=== PATIENT | female | born 1945 | race Caucasian/White ===

== ENCOUNTER 2023-01-11 00:57 | Day surgery (SDC) | payer MEDICARE, SELFPAY ==
[2022-12-29 14:17] VITALS: BMI 29.2
[2023-01-11] VITALS (12 sets, daily range): BP systolic 108–144; BP diastolic 57–86; PULSE 60–85; RESP 11–21; TEMP 35.9; O2SAT 97–100; BMI 30.3
[2023-01-11] MEDS: LACTATED RINGERS 1,000 ML 150 ML IV CONT (08:02)
--- NOTE | 2023-01-11 08:08 | WPDANESEPPF ---
Anes - Initial Pre Proc Eval Procedure: Operation Date: 01/11/23 09:00 Proposed Procedures p Colonoscopy - Leonides Brooks MD Date/Time: 01/11/23 08:08 Surgeon: Leonides Brooks MD Pre Op Diagnosis: hx colon polyps, family hx colon ca Patient Data Age: 77 Gender: F Height: 1.6 m Weight: 77.6 kg Last Vital Signs Temp 96.7 F L 01/11/23 07:44 Pulse 85 01/11/23 07:44 Resp 18 01/11/23 07:44 BP 130/86 01/11/23 07:44 Pulse Ox 100 01/11/23 07:44 O2 Del Method Room Air 01/11/23 07:44 Allergies Allergy/AdvReac Type Severity Reaction Status Date / Time Sulfa (Sulfonamide Allergy Unknown Unknown Verified 01/11/23 07:51 Antibiotics) adhesive tape Allergy Rash Verified 01/11/23 07:51 albuterol AdvReac Mild Cough Verified 01/11/23 07:51 Home Medications Medication Instructions Recorded Confirmed Type levothyroxine 112 mcg capsule 112 mcg PO DAILY 01/18/20 01/11/23 History methadone 5 mg tablet 5 mg PO BID 10/01/21 01/11/23 History escitalopram oxalate 20 mg tablet See Rx Instructions .Route 11/02/22 01/11/23 Rx .COMPLEX #90 tabs quetiapine 50 mg tablet (Seroquel) 50 mg PO DAILY #90 tabs 11/02/22 01/11/23 Rx tizanidine 4 mg capsule 4 mg PO ONCE PRN muscle spasms 11/02/22 01/11/23 History Patient hx anesthesia problems: none Family hx anesthesia problems: none Results Review: All pre-operative results and documents have been reviewed as part of the pre-operative evaluation. [facility] Past Medical History Medical History Family history of colon cancer in father Narcotic bowel syndrome Overflow diarrhea Therapeutic opioid-induced constipation (OIC) Surgical History Surgical History History of cataract surgery Family History Family History Father Family history of cardiovascular disease Cerebrovascular accident Family history of malignant neoplasm Grandparent Family history of cardiovascular disease Family history of malignant neoplasm Mother Family history of malignant neoplasm Social History Social History Smoking status: Never smoker Alcohol intake: never Substance use: never Substance use type: does not use Living arrangements: with family Occupation/Education: occupation 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 Gender identity (if verbalized by the patient): Female Spiritual care concerns: No Agree to blood products: Yes Anes - Eval Final PreProcedure Day of Procedure 01/11/23 08:08 Patient weight: obese Heart: regular rate and rhythm Lungs: clear to auscultation Airway: Mallampati scale class III Neurological: alert and oriented Last oral intake: >/= 8 hours ASA classification: III Emergent: no Anesthetic plan: proceed Anesthesia type and monitoring: general GIVS and standard monitoring Results Review: All pre-operative results and documents have been reviewed as part of the pre-operative evaluation. Informed Consent: The patient's anesthetic plan and its attendant risks and benefits were discussed with the patient/family/POA. Questions were solicited and answers provided to the satisfaction of the patient/family/POA.
--- NOTE | 2023-01-11 08:20 | PM.HPGS ---
History of Present Illness History of Present Illness Consent: Risks, benefits, and alternatives have been discussed and questions answered. Patient agrees to proceed with procedure. 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 Review of Systems Constitutional: Constitutional: Denies headache(s) and Denies weakness Eyes: Eyes: Denies blurry vision ENT: Reports Normal hearing present, Denies headache(s) and Denies neck pain Cardiovascular: Cardiovascular: Denies chest pain and Denies dyspnea Respiratory: Respiratory: Denies dyspnea Gastrointestinal: Gastrointestinal: Reports no additional gastrointestinal complaints Genitourinary: Genitourinary: Denies dysuria Musculoskeletal: Musculoskeletal: Denies neck pain Integumentary/Breasts: Skin/Breast: Denies dry skin Neurologic: Reports Normal hearing present, Denies headache(s) and Denies weakness Psychiatric: Psychiatric: Denies anxiety Endocrine: Endocrine: Denies change in body appearance Hematologic/Lymphatic: Hematologic/Lymphatic: Denies easy bleeding Allergic/Immunologic: Allergic/Immunologic: Denies urticaria PMFSH Past Medical History Medical History Family history of colon cancer in father Narcotic bowel syndrome Overflow diarrhea Therapeutic opioid-induced constipation (OIC) Surgical History Surgical History History of cataract surgery Family History Family History Father Family history of cardiovascular disease Cerebrovascular accident Family history of malignant neoplasm Grandparent Family history of cardiovascular disease Family history of malignant neoplasm Mother Family history of malignant neoplasm Social History Social History Smoking status: Never smoker Alcohol intake: never Substance use: never Substance use type: does not use Living arrangements: with family Occupation/Education: occupation 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 Gender identity (if verbalized by the patient): Female Spiritual care concerns: No Agree to blood products: Yes Meds Home Medications and Allergies Home Medications Medication Instructions Recorded Confirmed Type levothyroxine 112 mcg capsule 112 mcg PO DAILY 01/18/20 01/11/23 History methadone 5 mg tablet 5 mg PO BID 10/01/21 01/11/23 History escitalopram oxalate 20 mg tablet See Rx Instructions .Route 11/02/22 01/11/23 Rx .COMPLEX #90 tabs quetiapine 50 mg tablet (Seroquel) 50 mg PO DAILY #90 tabs 11/02/22 01/11/23 Rx tizanidine 4 mg capsule 4 mg PO ONCE PRN muscle spasms 11/02/22 01/11/23 History Allergies Allergy/AdvReac Type Severity Reaction Status Date / Time Sulfa (Sulfonamide Allergy Unknown Unknown Verified 01/11/23 07:51 Antibiotics) adhesive tape Allergy Rash Verified 01/11/23 07:51 albuterol AdvReac Mild Cough Verified 01/11/23 07:51 Vital Signs Vital Signs - 24 hr 01/11/23 07:44 Temperature 96.7 F L Pulse Rate 85 Respiratory Rate 18 Blood Pressure 130/86 Pulse Oximetry 100 Oxygen Delivery Room Air Assessment and Plan Assessment and plan (1) Family history of colon cancer in father: Code(s): Z80.0 - Family history of malignant neoplasm of digestive organs Status: Acute Assessment and Plan: colonoscopy
--- NOTE | 2023-01-11 09:43 | SUR.PHASEII ---
Pt arousable on calling but will quickly fall back asleep. Multiple attempts to wake pt for discharge. Spouse states she did not sleep last night. Continue to monitor. Anesthesiologist Dr. Hunter aware and at bedside.
--- NOTE | 2023-01-11 10:03 | SUR.PHASEII ---
Pt arousable on calling. States she did not take any medications this morning. Last dose of methadone last night. Pt still too drowsy for discharge at this time.
== END 2023-01-11 10:25 | disposition home or self-care (01) ==
PROVIDERS: PCP Family Medicine; Visit Provider Internal Medicine Gastroenterology
PROC: 0DJD8ZZ Inspection of Lower Intestinal Tract, Via Natural or Artificial Opening Endoscopic (ICD-10-PCS; CPT 45378; principal; 2023-01-11 09:00)
DX: Z12.11 Encounter for screening for malignant neoplasm of colon (principal); Z80.0 Family history of malignant neoplasm of digestive organs; Z86.010 Personal history of colon polyps; K57.30 Diverticulosis of large intestine without perforation or abscess without bleeding
CPT/HCPCS: G0105; J2704; J7120

== ENCOUNTER 2023-08-15 08:14 | Outpatient (CLI) | payer MEDICARE, SELFPAY ==
--- NOTE | ~2023-08-15 | MMUS_ITS ---
MM post biopsy invasive LT, US breast biopsy LT w image EXAMINATION: US GUIDED NEEDLE BIOPSY WITH VACUUM ASSISTANCE DATE: 08/15/2023 15:07 CDT INDICATION: Left breast mass seen on prior examination. Ultrasound-guided core biopsy is requested t o evaluate for malignancy. TECHNIQUE AND FINDINGS: The risks and potential benefits of the procedure were discussed with the patient, and written inform ed consent was obtained. After sterile preparation of the left breast, 1% lidocaine was utilized for local anesthesia. 1% lidocaine with epinephrine was used for deep anesthesia. A 10G vacuum-assisted biopsy gun needle was advanced through to the outer edge of the region of inter est from a superior approach utilizing sonographic guidance. A total of 4 tissue core samples were o btained through the lesion. An Inrad tissue marker clip was then placed at the biopsy site. Hemostas is was achieved. The patient tolerated procedure well and there was no evidence of immediate complication. The patien t was given verbal instructions partly is from the department. Left breast mammograms to document ti ssue marker clip placement. The tissue samples were submitted to surgical pathology for histologic an alysis. IMPRESSION: 1. Successful ultrasound-guided vacuum-assisted biopsy of left breast mass with tissue marker placem ent. Please refer to pathology report for histologic analysis. Reviewed, dictated and finalized at location A. IMPRESSION: 1. Successful ultrasound-guided vacuum-assisted biopsy of left breast mass wit h tissue marker placement. Please refer to pathology report for histologic anal ysis.
== END 2023-08-15 08:15 | disposition home or self-care (01) ==
PROVIDERS: PCP Family Medicine; Visit Provider Surgery
DX: R92.8 Other abnormal and inconclusive findings on diagnostic imaging of breast (principal); N63.20 Unspecified lump in the left breast, unspecified quadrant
CPT/HCPCS: 19083; 88305; A4648

== ENCOUNTER 2024-04-09 08:09 | Outpatient (CLI) | payer MEDICARE, SELFPAY ==
--- NOTE | 2024-05-02 12:46 | P.SLEEP_ITS ---
Sleep Study Date of Study: 04/09/24 Ordering Provider: Luan Faustin APRN Interpreting Physician: Shanda Santacruz DO Sleep Study Type: CPAP Titration Height: 1.6 m Weight: 77.111 kg Body Mass Index: 30.1 Neck Circumference (inches): 15 [place]: 4 Reason for Sleep Study Elevated residual AHI on compliance data. SNAP HST 01/19/24 ? severe sleep apnea, AHI 52.1, total of 191 apneas (58 central/mixed, 142 obstructive) and 9 hypopneas. Lowest O2 saturation 83% with 59min spent below 88% saturation. On AutoPAP 5-20 cm H2O Sleep History The patient is 78-year-old female with previously diagnosed severe sleep apnea that had a sleep study ordered by the pulmonary group due to an elevated residual AHI on compliance data. The patient occasionally awakens from sleep short of breath. She denies awakening at night with heartburn, belching or cough. She frequently snores and it is frequently loud enough others complain. She frequently has trouble sleeping when she has a cold. She denies waking up gasping for air throughout the night. She frequently has breathing problems at night observed by herself or others. She frequently sweats excessively at night. She frequently has heart palpitations or irregular heartbeats during the night. She frequently falls asleep during the day but never while driving. She denies sleep paralysis and cataplexy. She denies having trouble at school or work due to sleepiness. She rarely experiences vivid dreamlike scenes upon awakening or falling asleep. She denies feeling afraid of going to sleep. She frequently has nightmares. She rarely remembers her dreams. She frequently has thoughts racing through her mind. She rarely feels sad or depressed. She occasionally has anxiety. She rarely has muscular tension. She denies noticing parts of her body jerk. She denies kicking during the night. She denies having crawling and aching feelings in her legs and denies having leg pain during the night. She denies grinding her teeth during sleep and denies awakening with morning jaw pain. She is constantly bothered by pain during the day and frequently awakened by pain during the night. She occasionally wakes up feeling stiff morning. She occasionally wakes up with sore or achy muscles. She constantly wakes up with pain in the neck. She does bed between 10 30-11 p.m. on both weekdays and weekends. It takes her 1 hour to fall asleep. She wakes up once throughout the night to urinate and is able to fall back asleep within 5-10 minutes. She wakes up at 8:00 a.m. on both weekdays and weekends. She typically gets 9 hours of sleep per night. She will stay in bed for 30 minutes after waking up in the morning. She currently lives with . She denies consuming any caffeinated beverages within 2 hours of bedtime. She denies engaging in physical exercise before bedtime. She will watch television before falling asleep. She denies taking naps in the afternoon or the evening. She consumes 2 cups of coffee per day. She denies tobacco, alcohol and recreational drug use. FOR[facility]LY [facility], [facility] Past Medical History Medical History Injury of right elbow Narcotic bowel syndrome Overflow diarrhea Therapeutic opioid-induced constipation (OIC) Surgical History Surgical History History of cataract surgery Family History Family History Father Family history of cardiovascular disease Cerebrovascular accident Family history of malignant neoplasm Grandparent Family history of cardiovascular disease Family history of malignant neoplasm Mother Family history of malignant neoplasm Son Diabetes mellitus Social History Social History Social History: 02/03/24 very confident with medical forms 03/16/24 declined [facility] Smoking status: Never smoker Alcohol intake: never Substance use: never Substance use type: does not use Do You Feel Safe in your Home?: Yes Lack of Transportation: No Lack of Food: Never True Current Housing: I Have Housing Concerned About Future Housing: No Difficulty Paying Gas/Electric Bills: No Difficulty Paying for Meds: No Currently Unemployed: No Education: High School Diploma/GED Difficulty w/ Childcare or Family Care: No Living arrangements: with family Occupation/Education: occupation 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 [employer] Gender identity (if verbalized by the patient): Female Spiritual care concerns: No Agree to blood products: Yes Medications Home Medications ?Medication ?Instructions ?Recorded ?Confirmed ?Type methadone 5 mg tablet 5 mg PO BID 10/01/21 04/23/24 History Calcium with Vitamin D BYMOUTH 03/30/23 04/23/24 History escitalopram oxalate 20 mg tablet 20 mg PO DAILY #90 tabs 03/22/24 04/23/24 Rx quetiapine 50 mg tablet 50 mg PO DAILY #90 tabs 03/22/24 04/23/24 Rx levothyroxine 112 mcg tablet 112 mcg PO DAILY #90 tabs 03/27/24 04/23/24 Rx metoprolol succinate 25 mg 25 mg PO DAILY #30 tabs 03/30/24 04/23/24 Rx tablet,extended release 24 hr eszopiclone 1 mg tablet 1 mg PO ONCE #1 tablet 04/05/24 04/23/24 Rx montelukast 10 mg tablet 10 mg PO QHS PRN 04/05/24 04/23/24 History Sleep Procedure A full night PAP titration using the [employer] multi-channel system recorded the standard physiologic parameters including EEG, EOG, submentalis EMG, anterior tibialis EMG, EKG, body position, nasal and oral airflow using nasal pressure sensor and thermistor.? Respiratory parameters of chest and abdominal movements were recorded with Respiratory Inductance Plethysmography belts. Oxygen saturation was recorded by pulse oximetry. Video monitoring was also performed. Sleep stages, periodic limb movements, and EEG arousals were scored in 30 second epochs according to the criteria of the AASM Scoring Manual. The Apnea-Hypopnea Index was calculated using CMS guidelines for definition of hypopnea with 4% O2 desaturations while scoring respiratory events. Sleep Architecture The total recording time was 478.6 minutes.? The total sleep time was 386.0 minutes. Sleep latency was 22.7 minutes. REM latency was 139.5 minutes. Sleep efficiency was 80.7%. The patient had 34 awakenings for an awakening index of 5.3. Wake after Sleep Onset time was 70.0 minutes. The patient spent 25.0 minutes, 6.5% of total sleep time in Stage N1. The patient spent 291.5 minutes, 75.5% in Stage N2. The patient spent 44.0 minutes, 11.4% in Stage N3. The pa tient spent 25.5 minutes, 6.6% in Stage REM. Respiratory Analysis The patient had 56 hypopneas, 6 obstructive apneas, 2 mixed apneas, and 118 central apneas for an overall Apnea Hypopnea Index of 28.3 events per hour. The REM Apnea Hypopnea Index was 0. The NREM Apnea Hypopnea Index was 30.3. The patient had a Central Apnea Hypopnea Index of 18.3. There was no evidence of Tiago-Hussein Respirations. The patient was started on CPAP 5 cm H2O and titrated to BPAP 14/4 cm H2O with a respiration rate of 8 breaths/min. The patient was able to fall asleep starting on CPAP 5 cm H2O. The patient was able to achieve REM sleep starting on CPAP 7 cm H2O. The patient developed treatment emergent central sleep apnea during this study. The patient was started on BPAP for central apneas and a back up rate was added to try to improve her AHI. She was unable to achieve a residual AHI less than 38 when on BPAP therapy. On CPAP 7 cm H2O, the patient spent 97.5 minutes in NREM and 24.5 minutes in REM with 2 obstructive apneas, 13 central apneas, 1 mixed apnea and 1 hypopnea resulting in an AHI of 8.4. The patient had a sleep efficiency of 93.1% on this pressure setting. Arousals There were 95 total arousals for an arousal index of 14.8. There were 80 spontaneous arousals for an index of 12.4. ?There were 14 arousals due to respiratory events for an index of 2.2. There were 0 arousals due to periodic limb movements for an index of 0.? There were 1 arousals due to isolated limb movements for an index of 0.2. Periodic Limb Movements The patient had 3 isolated limb movements with an index of 0.5. The patient had 0 periodic limb movements with index of 0. Patient had a total of 3 limb movements with a total limb movement index of 0.5. Oximetry Data The patient had an average oxygen saturation of 90.9% in sleep with a minimum oxygen saturation of 78.0% and a maximum oxygen saturation of 99.0%. The patient had 103 oxygen desaturations that were 4% or greater resulting in an Oxygen Desaturation Index of 16.2.? The patient spent 47.6 minutes, 10.1% of total sleep time with an oxygen saturation below 88%. Snoring Profile Mild snoring was present intermittently in the beginning of the study. Cardiac Profile The EKG showed normal sinus rhythm with rare PVCs. The patient had an average pu lse rate of 55.9 bpm with a minimum pulse rate of 46.0 bpm and a maximum pulse rate of 66.0 bpm. ? EEG Profile No signs of seizure activity seen. Assessment and Plan Assessment and Plan (1) Treatment-emergent central sleep apnea: Code(s): G47.39 - Other sleep apnea Status: Acute Assessment and Plan: The patient was started on CPAP 5 cm H2O and titrated to BPAP 14/4 cm H2O with a respiration rate of 8 breaths/min. The patient was able to achieve a residual AHI less than 10 with a high sleep efficiency on 7 cm H2O. When the patient was titrated above 7 cm H2O and switched to BPAP, she developed more central apneas. I recommend that the patient's pressure settings be switched to CPAP 7 cm H2O with size small Resmed N30i mask. Many times the treatment emergent centrals will resolve spontaneously within 90 days. If the patient's compliance data in 3 months shows a residual AHI greater than 10, I recommend that she gets an ASV Titration. She had an echocardiogram within the past 6 months that showed an ejection fraction greater than 45%. Data The data obtained during this sleep study is adequate for interpretation. Certification This sleep study has been reviewed by a board certified sleep medicine physician.
[2024-05-03 11:55] VITALS: BMI 30.1
== END 2024-04-10 06:36 | disposition home or self-care (01) ==
LOC: ANHCSM 08:10
PROVIDERS: PCP Nurse Practitioner Family; Visit Provider Nurse Practitioner Family
DX: G47.33 Obstructive sleep apnea (adult) (pediatric) (principal); G47.31 Primary central sleep apnea
CPT/HCPCS: 93306; 95811

== ENCOUNTER 2024-04-10 13:46 | Outpatient (CLI) | payer MEDICARE, SELFPAY ==
--- NOTE | 2024-04-10 13:48 | ECHO_ITS ---
Patient Info Name: Julia Barrett Age: 78 years : 1945 Gender: Female Ht: 63 in Wt: 170 lbs BSA: 1.88 m2 HR: 63 bpm BP: 118 / 75 mmHg Heart Rhythm: Sinus Rhythm Technical Quality: Fair Exam Date: 04/10/2024 2:00 PM Exam Location: Echo Lab Patient Status: Outpatient Admit Date: 04/10/2024 Staff Ordering Physician: Sherman Max DO Clamp Carrier Operator: Yusra Aguilar RDCS Attending Provider: Sherman Max DO Referring Physician: Mansoor SALAS; Exam Type: CA echo doppler color flow Study Info Indications R06.09 - Other forms of dyspnea Complete two-dimensional, color flow and Doppler transthoracic echocardiogram is performed. Summary 1. Complete two-dimensional, color flow and Doppler transthoracic echocardiogram is performed. 2. Left ventricular chamber dimension is normal. 3. Left ventricular systolic function is normal, estimated at 65-70%. 4. The left ventricular diastolic function is grade I diastolic dysfunction. 5. E/e' 13 is mildly elevated. 6. Left atrial chamber dimension is moderately enlarged. 7. There is mild aortic valve sclerosis. 8. There is mild mitral valve regurgitation. 9. There is mild tricuspid valve regurgitation. 10. No pulmonary hypertension, estimated pulmonary arterial systolic pressure is 30 mmHg. Left Ventricle E/e' 13 is mildly elevated. Left ventricular chamber dimension is normal. Left ventricular systolic function is normal, estimated at 65-70%. The left ventricular diastolic function is grade I diastolic dysfunction. Right Ventricle Right ventricular systolic function is normal and with normal TAPSE 3.1 cm. Right ventricular chamber dimension is normal. Left Atria Left atrial chamber dimension is moderately enlarged. Right Atria Right atrial chamber dimension is normal. Aortic Valve The aortic valve is trileaflet. There is mild aortic valve sclerosis. There is no aortic valve stenosis. There is no aortic valve regurgitation. Pulmonic Valve There is no pulmonic regurgitation. Mitral Valve There is no mitral valve stenosis. There is mild mitral valve regurgitation. Tricuspid Valve There is mild tricuspid valve regurgitation. No pulmonary hypertension, estimated pulmonary arterial systolic pressure is 30 mmHg. Pericardium/Pleural There is no pericardial effusion. Inferior Vena Cava Normal inferior vena cava with >50% collapse upon inspiration consistent with normal right atrial pressure, 5 mmHg. Aorta The aortic root size at the sinus of Valsalva is normal. Left Ventricular Outflow Tract Name Value Normal LVOT 2D LVOT Diameter 2.0 cm LVOT Doppler LVOT Peak Gradient 6 mmHg LVOT Mean Gradient 3 mmHg LVOT VTI 25 cm LVOT VTI/AV VTI Ratio 0.7 LVOT Stroke Volume 75 ml LVOT CO 4.6 l/min LVOT CI 2.5 l/min/m2 Pulmonic Valve Name Value Normal RVOT Doppler RVOT Peak Gradient 4 mmHg PV Doppler PV Peak Gradient 5 mmHg Mitral Valve Name Value Normal MV Doppler MV Decel [place] 341 cm/s2 MV PHT 78 ms MV Area (PHT) 2.8 cm2 4.0-5.0 MV Diastolic Function MV E Peak Velocity 92 cm/s MV A Peak Velocity 136 cm/s MV E/A 0.7 MV Decel Time 269 ms MV Annular TDI MV E/e' (Septal) 13.7 <=8.0 MV E/e' (Lateral) 12.4 <=8.0 MV E/e' (Average) 13.1 Tricuspid Valve Name Value Normal TV Regurgitation Doppler TR Peak Velocity 251 cm/s TR Peak Gradient 25 mmHg Estimated PAP/RSVP RA Pressure 5 mmHg <=5 PA Systolic Pressure 30 mmHg <36 RV Systolic Pressure 30 mmHg <36 Aorta Name Value Normal Ascending Aorta Ao Root Diameter (MM) 2.4 cm Ao Root Diam Index (MM) 1.3 cm/m2 Aortic Valve Name Value Normal AV Doppler AV Peak Velocity 165 cm/s AV Peak Gradient 11 mmHg AV Mean Gradient 6 mmHg AV VTI 37 cm AV Area (Cont Eq VTI) 2.1 cm2 >=3.0 AV Area (Cont Eq Tray) 2.2 cm2 AV Regurgitation 2D LVOT Area 3.0 cm2 Ventricles Name Value Normal LV Dimensions 2D/MM IVS Diastolic Thickness (2D) 0.8 cm 0.6-1.0 LVID Diastole (2D) 4.3 cm 3.8-5.2 LVIW Diastolic Thickness (2D) 0.8 cm 0.6-0.9 LVID Systole (2D) 2.7 cm 2.2-3.5 LVOT Diameter 2.0 cm LV Mass (2D Cubed) 104.87 g 67.00-162.00 LV Mass Index (2D Cubed) 56 g/m2 43-95 Relative Wall Thickness (2D) 0.36 LV Fractional Shortening/Ejection Fraction 2D/MM LV Fractional Shortening (2D) 37 % 27-45 LV EF (2D Teicholz) 67 % 54-74 LV Diastolic Volume (4C MOD) 75 ml LV EF (4C MOD) 71 % LV Diastolic Volume (2C MOD) 60 ml LV EF (2C MOD) 74 % LV Diastolic Volume (BP MOD) 67 ml 46-106 LV Diastolic Volume Index (BP MOD) 36 ml/m2 29-61 LV Systolic Volume (BP MOD) 19 ml 14-42 LV Systolic Volume Index (BP MOD) 10 ml/m2 8-24 LV EF (BP MOD) 72 % 54-74 LV Diastolic Length (4C) 7.5 cm LV Systolic Length (4C) 5.6 cm LV Stroke Volume (4C MOD) 54 ml Atria Name Value Normal LA Dimensions LA Dimension (MM) 4.0 cm 2.7-3.8 LA Volume (4C A-L) 81 ml LA Volume (BP A-L) 69 ml RA Dimensions RA Area (4C) 17.1 cm2 <=18.0 Report Signatures
== END 2024-04-10 13:47 | disposition home or self-care (01) ==
LOC: ANHCARD 13:47
PROVIDERS: PCP Nurse Practitioner Family; Visit Provider Internal Medicine Cardiovascular Disease
DX: R06.09 Other forms of dyspnea (principal); I51.89 Other ill-defined heart diseases; I35.8 Other nonrheumatic aortic valve disorders; I34.0 Nonrheumatic mitral (valve) insufficiency; I36.1 Nonrheumatic tricuspid (valve) insufficiency
CPT/HCPCS: 93306

== ENCOUNTER 2024-04-18 09:34 | Outpatient (CLI) | payer MEDICARE, SELFPAY ==
--- NOTE | ~2024-04-18 | NM_ITS ---
EXAMINATION: NM velasquez stress w perfusion DATE: 04/18/2024 11:34 INDICATION: Other forms of dyspnea. TECHNIQUE: Rest images were obtained following intravenous administration of 9.5 mCi Tc99m tetrofosmi n (Myoview). The patient was infused intravenously with Lexiscan (regadenoson). Then, 30.9 mCi Tc99m tetrofosmin (Myoview) was administered intravenously, and stress images were obtained. Data was recon structed into short axis and horizontal and vertical long axis SPECT images. Gated SPECT images were also obtained. COMPARISON: None. FINDINGS: There is no definite reversible or fixed perfusion abnormality to suggest ischemia or infar ction. There is no segmental wall motion abnormality. Left ventricular ejection fraction measures > 70%. IMPRESSION: 1. No definite ischemia or infarct. 2. Normal left ventricular ejection fraction measuring >70%. Reviewed, dictated and finalized at location A. ER ANALYST
--- NOTE | 2024-04-18 09:44 | EST_ITS ---
Patient Info Name: Julia Barrett Age: 78 years : 1945 Gender: Female Ht: 63 in Wt: 175 lbs BSA: 1.91 m2 HR: 59 bpm BP: 128 / 79 mmHg Exam Date: 04/18/2024 10:35 AM Exam Location: Echo Lab Patient Status: Outpatient Admit Date: 04/18/2024 Staff Ordering Physician: Sherman Max DO Attending Provider: Sherman Max DO Exercise Technologist: Yusar Aguilar RDCS Exercise Physician: Sherman Max DO Exam Type: CA stress velasquez w NM Study Info A regadenoson stress test was performed. Summary 1. 1. Negative lexiscan stress test for ischemic ST changes by ECG criteria. 2. 2. Stable hemodynamics throughout the test. 3. 3. Nuclear scan to follow and will be reported separately. Please correlate with it. 4. 4. Patient informed of the above results. Protocol: Lexiscan Stress ECG Details Stage: REST Duration (min): 1 min : 25 sec HR (bpm): 59 SBP (mmHg): 128 DBP (mmHg): 79 Stage: REST Duration (min): 6 min : 26 sec HR (bpm): 60 SBP (mmHg): 128 DBP (mmHg): 79 Stage: STAGE 1 Duration (min): 0 min : 59 sec HR (bpm): 61 SBP (mmHg): 130 DBP (mmHg): 78 Stage: RECOVERY Duration (min): 1 min : 0 sec HR (bpm): 72 SBP (mmHg): 130 DBP (mmHg): 78 Stage: RECOVERY Duration (min): 2 min : 0 sec HR (bpm): 71 SBP (mmHg): 130 DBP (mmHg): 78 Stage: RECOVERY Duration (min): 3 min : 0 sec HR (bpm): 77 SBP (mmHg): 111 DBP (mmHg): 75 Stage: RECOVERY Duration (min): 3 min : 5 sec HR (bpm): 77 SBP (mmHg): 111 DBP (mmHg): 75 Rest HR: 60 bpm Peak HR: 79 bpm Rest Sys BP: 128 mmHg Peak Sys BP: 130 mmHg Max Pred HR: 144 bpm % Max Pred HR: 55 % Target HR: 122 bpm Max RPP: 10,270 bpm*mmHg Termination Reason: Completed protocol Cardiac Symptoms: Shortness of breath Total Time: 1 min : 0 sec Rest Snyder BP: 79 mmHg Peak Snyder BP: 78 mmHg Total Dose: 0.4 mg Resting ECG Sinus rhythm. Stress ECG No ST changes. Arrhythmias None. Report Signatures
== END 2024-04-18 09:35 | disposition home or self-care (01) ==
PROVIDERS: PCP Nurse Practitioner Family; Visit Provider Internal Medicine Cardiovascular Disease
DX: Z01.818 Encounter for other preprocedural examination (principal); R06.09 Other forms of dyspnea
CPT/HCPCS: 78452; 93017; A9502; J2785

== ENCOUNTER 2024-07-19 14:20 | Outpatient (CLI) | payer MEDICARE, SELFPAY ==
--- OUTSIDE RECORDS SUMMARY | 2024-07-19 15:45 | XMS_ITS ---
Author Organization [facility] Address [id number] [place] [address] [address] [place] [address] Care Team Providers Care Customs Compliance Specialist Name Role Phone Kirstin Hunter Unavailable [phone] Allergies Allergen (clinical drug ingredient) Drug/Non Drug Allergy documented on EMR Reaction Allergy Type Onset Date Status hydrocodone Hydrocodone Unknown Drug Allergy Act joselin Substance with sulfonamide structure and antibacterial mechanism of action (substance) Sulfa Antibiotics Unknown Drug Allergy Active REASON FOR VISIT meds Medications Medication SIG (Take, Route, Frequency, Duration) Notes Start Date End Date Status Synthroid 112 MCG 1 tablet in the morning on an empty stomach Orally Once a day for 30 day(s) 12/13/2023 Unknown Naloxone HCl 0.4 MG/ML as directed Injection 12/13/2023 Unknown SEROquel 50 MG 1 tablet at bedtime Orally Once a day for 30 day(s) 12/13/2023 Unknown Lexapro 20 MG 1 tablet Orally Once a day for 30 day(s) 12/13/2023 Unknown Naloxone HCl 0.4 MG/ML as directed Injection 12/13/2023 Unknown tiZANidine HCl 4 MG 1 tablet Oral twice a day for 30 days Active Levothyroxine Sodium 112 MCG Oral for 90 Days Active QUEtiapine Fumarate 50 MG Oral for 90 Days Active Escitalopram Oxalate 20 MG Oral for 90 Days Active Methadone HCl 10 MG 1 tablet Orally every 6 hours for 30 days increasing dose while recovering from multi level spinal fusion; we are covering post op pain 05/22/2024 Active Metoprolol Succinate ER 25 MG 1 tablet Orally Once a day Active Vital Signs Blood pressure systolic 126 mm Hg 07/18/19 25 Blood pressure diastolic 70 mm Hg 025 Heart Rate 62 /min 07/17/2024 Height 5ft 3.5 in in 07/17/2024 Weight 165 lbs 07/17/2024 BMI 28.77 kg/m2 07/17/2024 Height-cm 161.29 cm 07/17/2024 Weight-kg 74.84 kg 07/17/2024 Encounters Encounter Location Date Provider Diagnosis [facility] [id number] [place] [address] [address] [place] [address] 07/17/2024 Kirstin Hunter Cervical radiculopat hy M54.12 ; Cervical pain M54.2 ; Cardiac arrhythmia I49.9 ; Hypothyroidism E03.9 ; Myelopathy, spondylogenic, cervical M47.12 ; Disease of spinal cord, unspecified G95.9 ; Radiculopathy, cervical region M54.12 and Generalized osteoarthritis M15.9 Assessments Encounter Date Diagnosis (ICD Code) Assessment Notes Treatment Notes Treatment Clinical Notes Section Notes 07/17/2024 Cervical radiculopathy (ICD-10 - M54.12) 07/17/2024 Cervical pain (ICD-10 - M54.2) 07/17/2024 Cardiac arrhythmia (ICD-10 - I49.9) 07/17/2024 Hypothyroidism (ICD-10 - E03.9) ICD F32.A-Depressi on: 07/17/2024 Myelopathy, spondylogenic, cervical (ICD-10 - M47.12) 07/17/2024 Disease of spinal cord, unspecified (ICD-10 - G95.9) 07/17/2024 Radiculopathy, cervical region (ICD-10 - M54.12) 07/17/2024 Generalized osteoarthritis (ICD-10 - M15.9) 07/17/2024 Other High Blood Pressure: Care Instructions material was published Plan Of Treatment Medication Medication Name Sig Start Date Stop Date Notes tiZANidine HCl 4 MG 1 tablet Oral twice a day for 30 days Treatment Notes Assessment Notes Other High Blood Pressure: Care Instructions material was published Next Appt Details Provider Name:Kirstin warren, 08/15/2024 12:30:00 PM, [address] [facility], [address], [place], [address], Progress Notes * Julia BARRETTDOB: [birth year] (78 yo F)Acc No.[id number]:07/17/2024 Progress Notes Patient: Julia KEENE Appointment Provider: Luis Hunter NP :1945 A ge:78 Y S ex:Female Supervising Provider:Zaida Hook MD Date:07/17/2024 Address:[address] [place], [place] [id number] Subjective: * Chief Complaints: * 1 . Meds. * HPI: * Established Patient: Established Patient Questionnaire: 1 . Are you currently taking a Blood Thinner Medication? N o 2 . Do you have an allergy to I.V. Contrast or Shellfish? N o 3 . List any changes to medical history. (eg; Falls, Test, Scans, Blood Work, and Hospitalizations) N one 4 . Have you been exposed to anyone with COVID in the last 2 weeks? N o 5 . Have you been exposed to anyone with the FLU in the last 72 hours? N o 6 . What is your Pain Level today? (1-10, Scroll and select one) 4 7 . Where is your pain located? N felix,Low Back 8 . After your last visit, what Percentage of improvement did you experience? 1 0 9 . Are you doing Physical Therapy, Chiropractic, or Massage Therapy? N o 1 0. Are you doing an at home Exercise Program? N o 1 1. What activities or positions increase your Pain? (Scroll to select one or multiple) S itting,Standing,Walking,Chores,Exercise 1 2. What activities or positions decrease your Pain? (Scroll to select one or multiple) L eloisa down 1 3. How would you describe your Pain? (Scroll to select one or multiple) S tabbing,Throbbing,Numbness 1 4. Are you having difficulty sleeping? Y es 1 5. When was the last time you had your blood drawn? (Please enter your best estimate) N a 1 6. When was your last Mammogram? (Please put N/A if you are male, for Females please put the best Estimate or Never. ) N a 1 7. When was your last Colonoscopy? (Please put the best Estimate or Never. ) N a 1 8. Do you need any refills on your medications today? N o 2 0. Are you Diabetic? N o 2 1. Do you suffer from Constipation? N o * ROS: G eneral/Constitutional: Denies Change in appetite, Chills, Fatigue, Fever or Lightheadedness. ENT: Denies Tinnitus or Dysphagia. Ophthalmologic: Denies Blurred vision or change in vision. Neurological: denies gait abnormality, balance difficulty, dizziness, or loss of strength Psychological: denies depressed mood or change in mood Skin: denies skin rash . * Medical History: D epression, Anxiety, Hypothyroidism. * Surgical History: c ataract surgery both eyes 11/03 , extensive cervical and lumbar surgery after fall , cervical fusion 04/2024. * Social History: * Established Patient: S moking D o you smoke? N o Form Scores C ESD-R PMQ-R GPCOG Date 1 06/25/2023 C ESD-R Score 3 C ESD-R Risk L ow Risk (0 - 16) P MQ-R Score 1 5 P MQ-R Risk L ow Risk (0 - 34) G PCOG Score 9 G PCOG Risk N o Risk (9) C ESD-R PMQ-R GPCOG Testing Interval L ow Risk (every 6 months) C ESD-R PMQ-R GPCOG Next Test Due 0 10/23/2024 S OAPP Date 1 05/29/2023 S OAPP-R Score 0 S OAPP-R Risk L ow Risk (0 -9) S OAPP-R Testing Interval L ow Risk (every 6 months) C OMM Date 1 05/29/2023 C OMM Score 0 C OMM Risk N egative (< 9) * COMM: C OMM 1 . In the past 30 days, how often have you had trouble with thinking clearly or had memory problems? 0 - Never 2 . In the past 30 days, how often do people complain that you are not completing necessary tasks? (i.e., doing things that need to be done, such as going to class, work or appointments) 0 - Never 3 . In the past 30 days, how often have you had to go to someone other than your prescribing physician to get sufficient pain relief from medications? (i.e., another doctor, the Emergency Room, friends, street sources) 0 - Never 4 . In the past 30 days, how often have you taken your medications differently from how they are prescribed? 0 - Never 5 . In the past 30 days, how often have you seriously thought about hurting yourself? 0 - Never 6 . In the past 30 days, how much of your time was spent thinking about opioid medications (having enough, taking them, dosing schedule, etc.)??0- Never 7 . In the past 30 days, how often have you been in an argument? 0 - Never 8 . In the past 30 days, how often have you had trouble controlling your anger (e.g., road rage, screaming, etc.)? 0 - Never 9 . In the past 30 days, how often have you needed to take pain medications belonging to someone else? 0 - Never 1 0. In the past 30 days, how often have you been worried about how you're handling your medications? 0 - Never 1 1. In the past 30 days, how often have others been worried about how you're handling your medications? 0 - Never 1 2. In the past 30 days, how often have you had to make an emergency phone call or show up at the clinic without an appointment? 0 - Never 1 3. In the past 30 days, how often have you gotten angry with people? 0 - Never 1 4. In the past 30 days, how often have you had to take more of your medication than prescribed? 0 - Never 1 5. In the past 30 days, how often have you borrowed pain medication from someone else? 0 - Never 1 6. In the past 30 days, how often have you used your pain medicine for symptoms other than for pain (e.g., to help you sleep, improve your mood, or relieve stress)? 0 - Never 1 7. In the past 30 days, how often have you had to visit the Emergency Room? 0 - Never * SOAPP-R: S OAPP-R 1 . How often do you have mood swings? 0 - Never 2 . How often have you felt a need for higher doses of medication to treat your pain? 0 - Never 3 . How often have you felt impatient with your doctors? 0 - Never 4 . How often have you felt that things are just too overwhelming that you can't handle them? 0 - Never 5 . How often is there tension in the home??0- Never 6 . How often have you counted pain pills to see how many are remaining? 0 - Never 7 . How often have you been concerned that people will heater engineer helper you for taking pain medication? 0 - Never 8 . How often do you feel bored? 0 - Never 9 . How often have you taken more pain medication than you were supposed to? 0 - Never 1 0. How often have you worried about being left alone? 0 - Never 1 1. How often have you felt a craving for medication? 0 - Never 1 2. How often have others expressed concern over your use of medication? 0 - Never 1 3. How often have any of your close friends had a problem with alcohol or drugs? 0 - Never 1 4. How often have others told you that you had a bad temper? 0 - Never 1 5. How often have you felt consumed by the need to get pain medication? 0 - Never 1 6. How often have you run out of pain medication early? 0 - Never 1 7. How often have others kept you from getting what you deserve? 0 - Never 1 8. How often, in your lifetime, have you had legal problems or been arrested? 0 - Never 1 9. How often have you attended an AA or NA meeting? 0 - Never 2 0. How often have you been in an argument that was so out of control that someone got hurt? 0 - Never 2 1. How often have you been sexually abused??0- Never 2 2. How often have others suggested that you have a drug or alcohol problem? 0 - Never 2 3. How often have you had to borrow pain medications from your family or friends? 0 - Never 2 4. How often have you been treated for an alcohol or drug problem? 0 - Never * GPCOG: G PCOG 1 . I am going to give you a name and address. After I have said it, I want you to repeat it. Remember this name and address because I am going to ask you to tell it to me again in a few minutes: Stefano Crouch, [address] [place] [address]. Max 4 attempts R ead to the patient. 2 . What is the date? (exact only) C orrect 3 . Choose which image indicates the hours of a clock (correct spacing required) C orrect 4 . Which clock shows 10 minutes past eleven o'clock? C orrect 5 . Can you tell me something that happened in the news recently? (Recently = in the last week. If a general answer is given, eg war , lot of rain , ask for details. Only specific answer scores). C orrect 6 . What was the name and address I asked you to remember? First Name = Stefano C orrect 6 . What was the name and address I asked you to remember? Last Name = Miko C orrect 6 . What was the name and address I asked you to remember? Street Number = [address] C orrect 6 . What was the name and address I asked you to remember? Street Name = [facility] C orrect 6 . What was the name and address I asked you to remember? City = [place] C orrect T otal Score (out of 9) 9 W e have evaluated the patient using PMQ-R, CESD-R and GPCOG assessments. Based on data collected from the PMQ-R, we are evaluating the risk for abuse, misuse and diversion. Furthermore, we are screening the patient for depression using the CESD-R assessment. Lastly, we are utilizing GPCOG to ensure that the current treatment plan is not impairing cognition. Per assessments today the patient has low risk for depression, low risk for opioid misuse, abuse, and no cognitive impairment. * Medications: T aking Metoprolol Succinate ER 25 MG Tablet Extended Release 24 Hour 1 tablet Orally Once a day , Taking Methadone HCl 10 MG Tablet 1 tablet Orally every 6 hours , Notes to Pharmacist: increasing dose while recovering from multi level spinal fusion; we are covering post op pain, Taking tiZANidine HCl 4 MG Tablet 1 tablet Oral twice a day , Taking QUEtiapine Fumarate 50 MG Tablet Oral , Taking Escitalopram Oxalate 20 MG Tablet Oral , Taking Levothyroxine Sodium 112 MCG Tablet Oral , Unknown Lexapro 20 MG Tablet 1 tablet Orally Once a day , Unknown Naloxone HCl 0.4 MG/ML Solution as directed Injection , Unknown Naloxone HCl 0.4 MG/ML Solution as directed Injection , Unknown SEROquel 50 MG Tablet 1 tablet at bedtime Orally Once a day , Unknown Synthroid 112 MCG Tablet 1 tablet in the morning on an empty stomach Orally Once a day , Medication List reviewed and reconciled with the patient * Allergies: S ulfa Antibiotics, Hydrocodone. Objective: * Vitals: H t: 5ft 3.5 in, Wt: 165 lbs, BP: 126/70 mm Hg, Pain scale: 4 1-10, HR: 62 /min, BMI: 28.77 Index, Ht-cm: 161.29 cm, Wt-k.84 kg, Body Surface Area: 1.83. Assessment: * Assessment: 1. C ervical radiculopathy - M54.12 (Primary) 2 . C ervical pain - M54.2? 3. C ardiac arrhythmia - I49.9 4 . H ypothyroidism - E03.9? Notes :ICD F32.A-Depression: 5 . M yelopathy, spondylogenic, cervical - M47.12 6 . D isease of spinal cord, unspecified - G95.9 7 . R adiculopathy, cervical region - M54.12 8 . G eneralized osteoarthritis - M15.9 Plan: * Treatment: 2. O thers Notes: High Blood Pressure: Care Instructions material was published * Billing Information: * Visit Code: * Procedure Codes: * Electronic signature of Claire Hook MD on 07/19/2024 at 03:45 PM LANDSCAPING SPECIALIST Sign off status: Pending * Appointment Provider: Luis Hunter NP Date: 0 07/17/2024 Generated for Printing/Faxing/eTransmitting on: 0 07/19/2024 03:45 PM LANDSCAPING SPECIALIST History and Physical Notes * HPI (History of Present Illness) Category Sub-Category Detail Notes Category Not es *Established Patient Established Patient Questionnaire: 1. Are you currently taking a Blood Thinner Medication?: No 2. Do you have an allergy to I.V. Contra st or Shellfish?: No 3. List any changes to medic al history. (eg; Falls, Test, Scans, Blood Work, and Hospitalizations): None 4. Have you been exposed to anyone with COVID in the last 2 weeks?: No 5. Have you been exposed to anyone with the FLU in the last 72 hours?: No 6. What is your Pain Level today? (1-10, Scroll and select one): 4 7. Where is your pain located?: Neck,Low Back 8. After your last visit, wh at Percentage of improvement did you experience?: 10 9. Are you doing Physical Therapy, Chiro practic, or Massage Therapy?: No 10. Are you doing an at home Exercise Pr ogram?: No 11. What activities or posit ions increase your Pain? (Scroll to select one or multiple): Sitting,Standing,Walking,Chores,Exercise 12. What activities or posit ions decrease your Pain? (Scroll to select one or multiple): Lying down 13. How would you describe y our Pain? (Scroll to select one or multiple): Stabbing,Throbbing,Numbness 14. Are you having difficulty sleeping?: Yes 15. When was the last time y ou had your blood drawn? (Please enter your best estimate): Na 16. When was your last Mammo gram? (Please put N/A if you are male, for Females please put the best Estimate or Never. ): Na 17. When was your last Colonoscopy? (Ple ase put the best Estimate or Never. ): Na 18. Do you need any refills on your medi cations today?: No 20. Are you Diabetic?: No 21. Do you suffer from Constipation?: No
--- OUTSIDE RECORDS SUMMARY | 2024-07-19 15:45 | XMS_ITS ---
Author Organization [facility] Address [id number] [place] [address] [address] [place] [address] Care Team Providers Care Direct Sales Consultant Name Role Phone Zaida Hook Unavailable [phone] Allergies Allergen (clinical drug ingredient) Drug/Non Drug Allergy documented on EMR Reaction Allergy Type Onset Date Status hydrocodone Hydrocodone Unknown Drug Allergy Act joselin Substance with sulfonamide structure and antibacterial mechanism of action (substance) Sulfa Antibiotics Unknown Drug Allergy Active REASON FOR VISIT Patient comes to the office and states that she recently saw Dr. Arana who was her cervical spine surgeon. Patient states she has tapered a lot of her medications. Medications Medication SIG (Take, Route, Frequency, Duration) Notes Start Date End Date Status SEROquel 50 MG 1 tablet at bedtime Orally Once a day for 30 day(s) 12/13/2023 Unknown Synthroid 112 MCG 1 tablet in the morning on an empty stomach Orally Once a day for 30 day(s) 12/13/2023 Unknown Naloxone HCl 0.4 MG/ML as directed Injection 12/13/2023 Unknown Metoprolol Succinate ER 25 MG 1 tablet Orally Once a day Active tiZANidine HCl 4 MG 1 tablet Oral twice a day for 30 days Active Naloxone HCl 0.4 MG/ML as directed Injection 12/13/2023 Unknown Lexapro 20 MG 1 tablet Orally Once a day for 30 day(s) 12/13/2023 Unknown Escitalopram Oxalate 20 MG Oral for 90 Days Unknown Levothyroxine Sodium 112 MCG Oral for 90 Days Unknown QUEtiapine Fumarate 50 MG Oral for 90 Days Unknown Methadone HCl 10 MG 1 tablet Orally every 6 hours for 30 days increasing dose while recovering from multi level spinal fusion; we are covering post op pain 05/22/2024 Active Vital Signs Blood pressure systolic 138 mm Hg 06/19/19 25 Blood pressure diastolic 80 mm Hg 025 Heart Rate 69 /min 06/19/2024 Height 5ft 3.5 in in 06/19/2024 Weight 165 lbs 06/19/2024 BMI 28.77 kg/m2 06/19/2024 Height-cm 161.29 cm 06/19/2024 Weight-kg 74.84 kg 06/19/2024 Encounters Encounter Location Date Provider Diagnosis [facility] [address] [facility] [address] [place] [address] 06/19/2024 Zaidaiqra SeguraMiladys Cervical radiculopat hy M54.12 ; Cervical pain M54.2 ; Cardiac arrhythmia I49.9 ; Hypothyroidism E03.9 ; Myelopathy, spondylogenic, cervical M47.12 ; Disease of spinal cord, unspecified G95.9 ; Radiculopathy, cervical region M54.12 ; Generalized osteoarthritis M15.9 and Status post cervical spinal fusion Z98.1 Assessments Encounter Date Diagnosis (ICD Code) Assessment Notes Treatment Notes Treatment Clinical Notes Section Notes 06/19/2024 Cervical radiculopathy (ICD-10 - M54.12) 06/19/2024 Cervical pain (ICD-10 - M54.2) 06/19/2024 Cardiac arrhythmia (ICD-10 - I49.9) 06/19/2024 Hypothyroidism (ICD-10 - E03.9) 06/19/2024 Myelopathy, spondylogenic, cervical (ICD-10 - M47.12) 06/19/2024 Disease of spinal cord, unspecified (ICD-10 - G95.9) 06/19/2024 Radiculopathy, cervical region (ICD-10 - M54.12) 06/19/2024 Generalized osteoarthritis (ICD-10 - M15.9) 06/19/2024 Status post cervical spinal fusion (ICD-10 - Z98.1) 06/19/2024 Other Body Mass Index : Care Instructions material was published, High Blood Pressure: Care Instructions material was published Plan Of Treatment Treatment Notes Assessment Notes Other Body Mass Index: Car e Instructions material was published, High Blood Pressure: Care Instructions material was published Next Appt Details Follow Up: Follow-up in 1 mo [facility] for medication check patient is to stay on methadone 5 mg twice daily and Flexeril at night, Reason: Provider Name:Kirstin Stephens kelvin, 08/15/2024 12:30:00 PM, [id number] [place] [address], [address], [place], [address], Progress Notes * Lizette BARRETTcelesteDOB: 8 (78 yo F)Acc No.[id number]:06/19/2024 Progress Notes Patient: Julia KEENE Provider: Isamar Hook MD :[id number] A ge:78 Y S ex:Female Date:06/19/2024 Address:[address] [place], [place] [id number] Subjective: * Chief Complaints: * Cam cervantes comes to the office and states that she recently saw Dr. Arana who was her cervical spine surgeon. Patient states she has tapered a lot of her medications. * HPI: * Established Patient: Established Patient [...] Level today? (1-10, Scroll and select one) 5 7 . Where is your pain located? H ead,Neck,Left Shoulder,Right Shoulder,Chest,Left Arm,Right Arm,Left Hand,Right Hand,Top of Back,Mid Back,Low Back,Left Glute,Right Glute,Left Leg,Left Knee,Right Knee,Left Calf,Right Calf,Left Ankle,Left Foot,Right Foot 8 . After your last visit, what Percentage of improvement did you experience? 1 0 9 . Are you doing Physical Therapy, Chiropractic, or Massage Therapy? N o 1 0. Are you doing an at home Exercise Program? N o 1 1. What activities or positions increase your Pain? (Scroll to select one or multiple) W alking,Chores 1 2. What activities or positions decrease your Pain? (Scroll to select one or multiple) L eloisa down 1 3. How would you describe your Pain? (Scroll to select one or multiple) S tabbing,Burning 1 4. Are you having difficulty sleeping? N o 1 5. When was the last time you had your blood drawn? (Please enter your best estimate) D ecember 1 6. When was your last Mammogram? (Please put N/A if you are male, for Females please put the best Estimate or Never. ) 2 023 1 7. When was your last Colonoscopy? (Please put the best Estimate or Never. ) 2 024 1 8. Do you need any refills on your medications today? Y es 2 0. Are you Diabetic? N o 2 1. Do you suffer from Constipation? N o * ROS: G eneral/Constitutional: Denies Change appetite. Denies Chills. Denies Fatigue. Denies Fever. Denies Lightheadedness. ENT: Denies Tinnitus. Denies Dysphagia. Ophthalmologic: Denies Blurred vision. * Medical History: * Surgical History: * Hospitalization/Major Diagno stic Procedure: * Social History: * Established Patient: S [...] have you been concerned that people will trial court judge you for taking pain medication? 0 - [...] again in a few minutes: Stefano Crouch, [address] [facility]. Max 4 attempts R ead to the [...] asked you to remember? Street Number = C orrect 6 . What was the name and address I asked you to remember? Street Name = [facility] C orrect 6 . What was the name and address I asked you to remember? City = [place] C orrect T otal Score (out of [...] and no cognitive impairment. * Medications: T akingMetoprolol Succinate ER 25 MG Tablet Extended Release 24 Hour 1 tablet Orally Once a day tiZANidine HCl 4 MG Tablet 1 tablet Oral twice a day Methadone HCl 10 MG Tablet 1 tablet Orally every 6 hours , Notes to Pharmacist: increasing dose while recovering from multi level spinal fusion; we are covering post op painTaking Metoprolol Succinate ER 25 MG Tablet Extended Release 24 Hour 1 tablet Orally Once a day Taking tiZANidine HCl 4 MG Tablet 1 tablet Oral twice a day Taking Methadone HCl 10 MG Tablet 1 tablet Orally every 6 hours , Notes to Pharmacist: increasing dose while recovering from multi level spinal fusion; we are covering post op painUnknownQUEtiapine Fumarate 50 MG Tablet Oral Escitalopram Oxalate 20 MG Tablet Oral Levothyroxine Sodium 112 MCG Tablet Oral Lexapro 20 MG Tablet 1 tablet Orally Once a day Naloxone HCl 0.4 MG/ML Solution as directed Injection Naloxone HCl 0.4 MG/ML Solution as directed Injection SEROquel 50 MG Tablet 1 tablet at bedtime Orally Once a day Synthroid 112 MCG Tablet 1 tablet in the morning on an empty stomach Orally Once a day Medication List reviewed and reconciled with the patientUnknown QUEtiapine Fumarate 50 MG Tablet Oral Unknown Escitalopram Oxalate 20 MG Tablet Oral Unknown Levothyroxine Sodium 112 MCG Tablet Oral Unknown Lexapro 20 MG Tablet 1 tablet Orally Once a day Unknown Naloxone HCl 0.4 MG/ML Solution as directed Injection Unknown Naloxone HCl 0.4 MG/ML Solution as directed Injection Unknown SEROquel 50 MG Tablet 1 tablet at bedtime Orally Once a day Unknown Synthroid 112 MCG Tablet 1 tablet in the morning on an empty stomach Orally Once a day Medication List reviewed and reconciled with the patient * Allergies: S ulfa AntibioticsHydrocodoneno[Allergies Verified] Objective: * Vitals: H t: 5ft 3.5 in, Wt: 165 lbs, BP: 138/80 mm Hg, Pain scale: 5 1-10, HR: 69 /min, BMI: 28.77 Index, Ht-cm: 161.29 cm, Wt-k.84 kg, Body Surface Area: 1.83. * Examination: G eneral Examination: P atient looks radiant today. She is alert and oriented her mind is clear. She has been tapering her medication as has cut her methadone down to 5 mg twice daily and a muscle relaxant at night. Patient commented that Dr. Arana's office stated that she should be on any medication. I explained that this has a lot more to do with lack of awareness and ignorance on the doctor's part as to her complicated medical history. Patient's had several lumbar spine operations and 3 cervical spine operations and she has been compliant over the years. Patient states she is so afraid that the government is good to continue to control the narcotic medication and next time that she has surgery there may not be any available. Splane to the patient that that is not a rational thought and that she is just overthinking it. She is being careful because she is not released for activity yet. She does wear her bone stimulator. She is compliant with everything. I am very pleased with her medication regimen I am not at all concerned. Assessment: * Assessment: 1. C ervical radiculopathy - M54.12 (Primary) 2 . C ervical pain - M54.2? 3. C ardiac arrhythmia - I49.9 4 . H ypothyroidism - E03.9? 5. M yelopathy, spondylogenic, cervical - M47.12 6 . D isease of spinal cord, unspecified - G95.9 7 . R adiculopathy, cervical region - M54.12 8 . G eneralized osteoarthritis - M15.9 9 . S tatus post cervical spinal fusion - Z98.1 Plan: * Treatment: * Procedure Codes: * Follow Up: F ollow-up in 1 month for medication check patient is to stay on methadone 5 mg twice daily and Flexeril at night * Billing Information: * Visit Code: 35046 Office Visit, Est Pt., Level 3. * Procedure Codes: * TATION DESIGN DRAFTSPERSON Sign off status: Completed true * Provider: Isamar Hook MD Date: 0 06/19/2024 Generated for Eva murray/Joseph/Editting on: 0 07/19/2024 03:45 PM SUBSTATION DESIGN DRAFTSPERSON History and Physical Notes * HPI (History [...] Level today? (1-10, Scroll and select one): 5 7. Where is your pain locate d?: Head,Neck,Left Shoulder,Right Shoulder,Chest,Left Arm,Right Arm,Left Hand,Right Hand,Top of Back,Mid Back,Low Back,Left Glute,Right Glute,Left Leg,Left Knee,Right Knee,Left Calf,Right Calf,Left Ankle,Left Foot,Right Foot 8. After your last visit, wh at Percentage of improvement did you experience?: 10 9. Are you doing Physical Therapy, Chiro practic, or Massage Therapy?: No 10. Are you doing an at home Exercise Pr ogram?: No 11. What activities or posit ions increase your Pain? (Scroll to select one or multiple): Walking,Chores 12. What activities or posit ions decrease your Pain? (Scroll to select one or multiple): Lying down 13. How would you describe y our Pain? (Scroll to select one or multiple): Stabbing,Burning 14. Are you having difficulty sleeping?: No 15. When was the last time y ou had your blood drawn? (Please enter your best estimate): April 16. When was your last Mammo gram? (Please put N/A if you are male, for Females please put the best Estimate or Never. ): 2022 17. When was your last Colon oscopy? (Please put the best Estimate or Never. ): 2023 18. Do you need any refills on your medi cations today?: Yes 20. Are you Diabetic?: No 21. Do you suffer from Constipation?: No Examination Category Sub-Category Detail Notes Category Not es General Examination Patient looks radiant today. She is alert and oriented her mind is clear. She has been tapering her medication as has cut her methadone down to 5 mg twice daily and a muscle relaxant at night. Patient commented that Dr. Arana's office stated that she should be on any medication. I explained that this has a lot more to do with lack of awareness and ignorance on the doctor's part as to her complicated medical history. Patient's had several lumbar spine operations and 3 cervical spine operations and she has been compliant over the years. Patient states she is so afraid that the government is good to continue to control the narcotic medication and next time that she has surgery there may not be any available. Splane to the patient that that is not a rational thought and that she is just overthinking it. She is being careful because she is not released for activity yet. She does wear her bone stimulator. She is compliant with everything. I am very pleased with her medication regimen I am not at all concerned.
--- OUTSIDE RECORDS SUMMARY | 2024-07-19 15:45 | XMS_ITS | Clinical Summary ---
Author Organization [facility] Address [facility] [place] [address] Care Team Providers Care Gas Meter Installer Helper Name Role Phone Rashad Rausch MD Primary Care Provider [phone] Veronica Temple SUPERVISING FILM OR VIDEOTAPE EDITOR Unavailable [phone] Immunizations Name Administration Dates Next Due MODERNA COVID-19 (12+) MRNA, LNP-S, PF, 100 MCG/ 0.5 ML DOSE 07/16/2020,06/18/2020 Family History Medical History Relation Comments Breast Cancer Paternal Aunt UNSURE OF AGE Breast Cancer Paternal Grandmother Breast Cancer Paternal Uncle UNSURE OF AGE Relation Status Comments Paternal Aunt Paternal Grandmother Paternal Uncle Social History Tobacco Use Types Packs/Day Years Used Date Smoking Tobacco: Never Assessed Comments Unknown Sex and Gender Information Value Date Recorded Sex Assigned at Not on file Legal Sex Female 6:22 PM CDT Gender Identity Not on file Sexual Orientation Not on file Last Filed Vital Signs Vital Sign Reading Time Taken Comments Blood Pressure 130/82 10/12/2012 11:38 AM CDT Pulse 83 10/12/2012 11:38 AM CDT Temperature - - Respiratory Rate - - Oxygen Saturation - - Inhaled Oxygen Concentration - - Weight 61.2 kg (135 lb) 10/12/2012 11:38 AM CDT Height - - Body Mass Index - - Plan of Treatment Health Maintenance Due Date Last Done Comments Hepatitis C 10[birth year]14/1963 Zoster Vaccines (2 of 3) 10/21/2011 08/26/2011 Annual Medicare Wellness Visit 10/14/2012 Pneumococcal Vaccine: 65+ Years (2 of 2 - PPSV23 or PCV20) 04/21/2017 04/21/2016 RSV Immunization or 60+ Years (1 - 1-dose 75+ series) 10/14/2022 DTaP, Tdap and Td Vaccines (1 - Tdap) 03/07/2023 03/06/2023 COVID-19 Vaccine (3 - season) 2024 07/16/2020, 06/18/2020 Influenza Adult (#1) 2024 04/16/2019, 03/14/2018, 03/20/2017, Additional history exists Dexa Scan (General) Completed 03/23/2023 Meningococcal B Vaccine Aged Out No l onger eligible based on patient's age to complete this topic Meningococcal Vaccine Aged Out No jones vick eligible based on patient's age to complete this topic RSV Immunizations Under 20 Months Aged Out No longer eligible based on patient's age to complete this topic Procedures Procedure Name Priority Date/Time Associated Diagnosis Comments BONE DENSITY/DEXA Routine 03/23/2023 2:5 2 PM MARBLE SUPERVISOR Unspecified menopausal and perimenopausal disorder from Last 3 Months or Most Recently Relevant to Health Maintenance Results * BONE DENSITY/DEXA (03/23/2023 2:52 PM MARBLE SUPERVISOR) Anatomical Region Laterality Modality Bone Bone Density 03/28/2023 7:10 AM MARBLE SUPERVISOR Impressions 03/28/2023 7:12 AM MARBLE SUPERVISOR IMPRESSION: WHO Classification: osteopenia. FRAX Score: 2.0% chance of hip fracture and 11% chance of major osteoporotic fracture over the next 10 years Ordered By: VERONICA TEMPLE Interpreted By: Gamal Avila MD, 03/28/2023 7:10 AM Narrative 03/28/2023 7:12 AM MARBLE SUPERVISOR Examination: Bone Density Axial Exam Date/Time: 03/23/2023 2:32 PM Reason For Exam: Unspecified menopausal and perimenopausal disorder Spinal hardware. Comparison: None Findings: DEXA bone densitometry The bone mineral density (BMD) was determined by dual-energy x-ray absorptiometry, the results are as follows: Distal third right forearm: BMD Patient (GM/SQCM): 0.575 T-Score (Standard deviations from young adult peak bone density): -1.9 Left femoral neck: BMD Patient (GM/SQCM): 0.688 T-Score (Standard deviations from young adult peak bone density): -1.5 Total left femur: BMD Patient (GM/SQCM): 0.840 T-Score (Standard deviations from young adult peak bone density): -0.8 Procedure Note Gamal Avila MD - 03/28/2023 Examination: Bone Density Axial Exam Date/Time: 03/23/2023 2:32 PM Reason For Exam: Unspecified menopausal and perimenopausal disorder Spinal hardware. Comparison: None Findings: DEXA bone densitometry The bone mineral density (BMD) was determined bydual-energy x-ray absorptiometry, the results are as follows: Distal third right forearm: BMD Patient (GM/SQCM): 0.575 T-Score (Standard deviations from young adult peak bonedensity): -1.9 Left femoral neck: BMD Patient (GM/SQCM): 0.688 T-Score (Standard deviations from young adult peak bonedensity): -1.5 Total left femur: BMD Patient (GM/SQCM): 0.840 T-Score (Standard deviations from young adult peak bonedensity): -0.8 IMPRESSION: WHO Classification: osteopenia. FRAX Score: 2.0% chance of hip fracture and 11% chance of majorosteoporotic fracture over the next 10 years Ordered By: VERONICA TEMPLE Interpreted By: Gamal Avila MD, 03/28/2023 7:10 AM us Veronica Temple SUPERVISING FILM OR VIDEOTAPE EDITOR DEXA Final Resul t from Last 3 Months or Most Recently Relevant to Health Maintenance Insurance MEDICARE [facility] MEDICARE AARP Advance Directives Documents on File Type Date Recorded Patient General Maintenance Engineer Expl anation Advance Directives and Living Will 10/23/2020 12:00 AM ADVANCED DIRECTIVES Care Teams Gas Meter Installer Helper Relationship Specialty Start Date End Date Rashad Rausch MD [address] [place] [phone] PCP - General 03/21/23 Veronica Temple, SUPERVISING FILM OR VIDEOTAPE EDITOR [address] [place] [id number] Nurse Practitioner Family 03/01/24
--- OUTSIDE RECORDS SUMMARY | 2024-07-19 15:46 | XMS_ITS | Clinical Summary ---
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 Name Role Phone Unavailable Primary Care Provider Unavailabl e Allergies Active Allergy Reactions Criticality Noted Date Comments Adhesive Tape-Silicones Hives,Other (See Comments) High 04/06/2024 Reaction: SKIN IRRITATION, HIVES, blisters Hydrocodone Hallucination Low 04/06/2024 Monoamine Oxidase Inhibitors Other (See Comments) Low 04/06/2024 Reaction: HYPERTENSION, extremly high Sulfa (Sulfonamide Antibiotics) Swelling Low 03/06/2023 Reaction: SWELLING antibiotic for UTI caused swelling requiring urinary catheter Medications levothyroxine 112 mcg tablet Take 112 mcg by mouth daily in the morning. Active escitalopram oxalate (LEXAPRO) 20 mg tablet Take 20 mg by mouth daily. Active QUEtiapine (SEROquel) 50 mg tablet Take 50 mg by mouth daily at bedtime. Active methadone (DOLOPHINE) 5 mg Tablet Take 5 mg by mouth 3 times daily. Active metoprolol succinate (TOPROL XL) 25 mg Extended Release 24 hour tablet Take 25 mg by mouth daily at bedtime. Active multivitamin (DAILY-DOM) tablet Take 1 Tablet by mouth daily. Active OTHER Take by mouth daily. Provider please include Medication name, dose, route and frequency BEET 2 Active calcium carbonate + vitamin D (CALTRATE+D) 600 mg-10 mcg (400 unit) Tablet Take 2 Tablets by mouth daily. Active cholecalciferol, Vitamin D3, 50 mcg (2,000 unit) Tablet Take 2 Tablets by mouth daily. Active OTHER Take by mouth daily. Provider please include Medication name, dose, route and frequency IMMUNE health supplement chew Active albuterol sulfate HFA 90 mcg/actuation aerosol inhaler Take 2 Puffs by inhalation every 4 hours as needed. 4 Active tiZANidine (ZANAFLEX) 4 mg Tablet Take 4 mg by mouth nightly as needed. Active fluticasone propionate (FLONASE) 50 mcg/spray [place], Suspension nasal inhaler Administer 2 Sprays in each nostril daily. Active diazePAM (VALIUM) 5 mg tabletIndications :Spinal stenosis in cervical region,Cervical myelopathy with cervical radiculopathy (CMS/HCC) Take 1 Tablet (5 mg) by mouth every 8 hours as needed for Spasm. 60 Tablet 05/04/2024 3:16 PM MONUMENT SETTER 4 Active docusate sodium (COLACE) 100 mg capsule Take 1 Capsule (100 mg) by mouth 2 times daily as needed for Constipation. 30 Capsule 05/04/2024 3:16 PM MONUMENT SETTER 4 Active HYDROcodone-aceta minophen (NORCO) 7.5-325 mg TabletIndications :Spinal stenosis in cervical region,Cervical myelopathy with cervical radiculopathy (CMS/HCC) Take 1-2 Tablets by mouth 1 time daily as needed for Break-Through Pain. Max Daily Amount: 2 Tablets 40 Tablet 05/04/2024 3:16 PM MONUMENT SETTER 4 Active ondansetron (ZOFRAN ODT) 4 mg Tablet, Rapid Dissolve Dissolve 1 tablet on top of tongue, then swallow with saliva every 6 hours as needed for Nausea/Vomiting . 30 Tablet 05/04/2024 3:16 PM MONUMENT SETTER 4 Active naloxone (NARCAN) 4 mg/spray [place], Non-Aerosol EMERGENCY USE ONLY: Administer 1 spray (4 mg) in one nostril one time. May repeat in alternating nostrils every 2-3 min until responsive or EMS arrives. 2 Each 3 4 Active Active Problems Problem Noted Date Diagnosed Date S/P cervical spinal fusion 05/02/2024 Cervical myelopathy with cervical radiculopathy 05/02/2024 Chronic pain syndrome 05/02/2024 Encounter for long-term methadone use 05/02/2024 Other specified hypothyroidism 05/02/2024 Situational mixed anxiety and depressive disorde r 05/02/2024 Encounters Date Type Department Care Team Description 07/10/2024 External Device Data ST[facility] ABSTRACTION Provider, Abstract 07/10/2024 External Device Data [facility] ABSTRACTION Provider, Abstract 06/19/2024 External Device Data [facility] ABSTRACTION Provider, Abstract 06/13/2024 External Device Data [facility] ABSTRACTION Provider, Abstract 06/07/2024 External Device Data [facility] ABSTRACTION Provider, Abstract 06/05/2024 External Device Data [facility] ABSTRACTION Provider, Abstract 05/08/2024 External Device Data [facility] ABSTRACTION Provider, Abstract 05/01/2024 1:57 PM MONUMENT SETTER Anesthesia Event [facility] Operating Room [address] [place] [address] Lucille Frey MD Gherle, Emily N, ANP 05/01/2024 12:00 PM MONUMENT SETTER - 05/01/2024 3:30 PM MONUMENT SETTER Surgery [facility] Operating Room [address] [place] [address] Dorian Arana MD POSTERIOR INSTRUMENTATION CERVICAL 3-CERVICAL 7 POSTERIOR LATERAL FUSION CERVICAL 3-4, CERVICAL 4-5, BONE MARROW ASPIRATE AND NEUROMONITORING, AND CERVICAL 3-4, CERVICAL 4-5 DECOMPRESSION 05/01/2024 9:58 AM MONUMENT SETTER - 05/04/2024 4:35 PM MONUMENT SETTER Hospital Encounter [facility] Surgical Stepdown [address] [place] [address] Dorian Arana MD Page, William J, MD S/P cervical spinal fusion Discharge Disposition: Home Health Care [facility] [place] 05/01/2024 Travel 04/24/2024 External Device Data [facility] ABSTRACTION Provider, Abstract 04/20/2024 12:27 PM MONUMENT SETTER - 04/20/2024 11:59 PM MONUMENT SETTER [facility] [address] [place] [address] Dorian Arana MD Discharge Disposition: Home or Self Care 04/20/2024 10:04 AM MONUMENT SETTER - 04/20/2024 11:59 PM MONUMENT SETTER Hospital Encounter [facility] Pre Surgical Assessment [address] [place] [address] Arana, Dorian P, MD Discharge Disposition: Home or Self Care from Last 3 Months Social History Tobacco Use Types Packs/Day Years Used Date Smoking Tobacco: Never Smokeless Tobacco: Never Tobacco Cessation:Counseling Given: Not Answered Alcohol Use Standard Drinks/Week Comments Not Asked 0 (1 standard drink = 0.6 oz pur e alcohol) VERY RARE, none in 20 years Feeling Safe Answer Date Recorded Are you in a relationship wi th someone who hurts you emotionally and/or physically? No 05/01/2024 Food Insecurity Answer Date Recorded Social/Environmental Concerns No concerns Transportation Needs Answer Date Record ed Social/Environmental Concerns No concerns Housing Stability Answer Date Recorded Social/Environmental Concerns No concerns Utility Needs Answer Date Recorded Social/Environmental Concerns No concerns Comments No Sex and Gender Information Value Date Recorded Sex Assigned at Not on file Legal Sex Female 5:04 AM MONUMENT SETTER Gender Identity Not on file Sexual Orientation Not on file Last Filed Vital Signs Vital Sign Reading Time Taken Comments Blood Pressure 107/51 05/04/2024 11:42 AM MONUMENT SETTER Pulse 67 05/03/2024 8:47 AM MONUMENT SETTER Temperature 36.9 C (98.4 F) 05/04/2024 11:42 AM MONUMENT SETTER Respiratory Rate 16 05/04/2024 11:42 AM MONUMENT SETTER Oxygen Saturation 93% 05/04/2024 3:29 PM MONUMENT SETTER Inhaled Oxygen Concentration - - Weight 83.6 kg (184 lb 6.4 oz) 05/01/2024 11:23 AM MONUMENT SETTER Height 160 cm (5' 3 ) 05/01/2024 11:23 AM MONUMENT SETTER Body Mass Index 32.66 05/01/2024 11:23 AM MONUMENT SETTER Plan of Treatment Health Maintenance Due Date Last Done Comments DTAP/TDAP/TD VACCINES (1 - Tdap) 10/14/1966 PNEUMOCOCCAL VACCINE 50+ YEA RS (1 of 1 - PCV) 10/14/1997 ZOSTER VACCINE (2 of 3) 10/21/2011 08/26/2011 RSV VACCINE (60+ or ) (1 - 1-dose 75+ series) 10/14/2022 INFLUENZA VACCINE (#1) 2023 , 04/16/2019, 04/03/2013, Additional history exists COVID-19 Vaccine (3 - 2023-2 5 season) 2024 07/16/2020, 06/18/2020 OSTEOPOROSIS SCREENING Completed 03/23/2023, 2022 Medical Devices Implanted Type Area Meteorology Professor Device Identifier Shelf Expiration Date Model / Serial / Lot Unid Exp Ti Pavel 4up L Implanted:Qty : 2 on 05/01/2024 by Dorian Arana MD at [facility] Pavel N/A: Spine Cervical Posterior [id number] / / [id number] Description:1X ADD LG Set Screw Infinity Oc M6 [id number] - [id number] Implanted:Qty : 10 on 05/01/2024 by Dorian Arana MD at [facility] Screw N/A: Spine Cervical Posterior [employer] [id number] / / [place] [id number] 70 3 STERILIZED [id number] Screw Infinity 3.5x14mm Mas [id number] - [id number] Implanted:Qty : 1 on 05/01/2024 by Dorian Arana MD at [facility] Screw N/A: Spine Cervical Posterior [employer] [id number] / / [place] [id number] 70 3 STERILIZED [id number] Screw Infinity 3.5x16mm Mas [id number] - [id number] Implanted:Qty : 7 on 05/01/2024 by Dorian Arana MD at [facility] Screw N/A: Spine Cervical Posterior [employer] [id number] / / [place] [id number] 70 3 STERILIZED [id number] Screw Infinity 3.5x22mm Mas [id number] - [id number] Implanted:Qty : 2 on 05/01/2024 by Dorian Arana MD at [facility] Screw N/A: Spine Cervical Posterior [employer] [id number] / / [place] [id number] 70 3 STERILIZED [id number] [employer] Dbm Plf 2.5x10cm [id number] - [id number] Implanted:Qty : 1 on 05/01/2024 by Dorian Arana MD at [facility] Tissue N/A: Spine Cervical Posterior [employer] 06/16/2026 [id number] / [id number] / Description:REQ#[id number] Procedures Procedure Name Priority Date/Time Associated Diagnosis Comments TELEMETRY REPORT 05/26/2024 10:0 5 AM MONUMENT SETTER TELEMETRY REPORT 05/26/2024 9:5 5 AM MONUMENT SETTER TELEMETRY REPORT 05/04/2024 1:23 PM MONUMENT SETTER TELEMETRY REPORT 05/04/2024 1:13 PM MONUMENT SETTER TELEMETRY REPORT 05/04/2024 12:1 7 PM MONUMENT SETTER TELEMETRY REPORT 05/04/2024 12:0 3 PM MONUMENT SETTER CBC WITHOUT DIFFERENTIAL Routine 05/04/2024 9:52 AM MONUMENT SETTER BASIC METABOLIC PANEL Routine 05/04/2024 9:52 AM MONUMENT SETTER TELEMETRY REPORT 05/03/2024 1:24 PM MONUMENT SETTER BASIC METABOLIC PANEL Routine 05/02/2024 5:03 AM MONUMENT SETTER HEMOGLOBIN AND HEMATOCRIT Routine 05/02/2024 5:03 AM MONUMENT SETTER XR FLUORO LESS THAN 1 HOUR Routine 05/01/2024 5:55 PM MONUMENT SETTER XR FLUORO LESS THAN 1 HOUR Routine 05/01/2024 4:12 PM MONUMENT SETTER XR CERVICAL SPINE 1 VW Routine 05/01/2024 3:39 PM MONUMENT SETTER XR FLUORO LESS THAN 1 HOUR Routine 05/01/2024 3:05 PM MONUMENT SETTER MI ANES INSERT CATH, ART, PERCUT, SHORTTERM Routine 05/01/2024 2:51 PM MONUMENT SETTER MI ANES INSERT ENDOTRACHEAL AIRWAY Routine 05/01/2024 2:02 PM MONUMENT SETTER MI ARTHRD PST/PSTLAT TQ 1NTRSPC CRV BELW C2 SEGMENT 05/01/2024 12:00 PM MONUMENT SETTER CERVICAL STENIOS WITH CERVICAL MYELOPATHY WITH RADICULOPATHY Special Needs DR PAUL 3HR AND 12PM START; STEALTH, ALLOGRFT, BMA, OARM, NEUROMONITORING, VERTEX, JONES TONGS, CHEST ROLLS, REGULAR TABLE, CELL SAVER. ALLERGY SULFA ANTIBIOTICS; NOTIFIED [place] VERIFICATION BLOOD GROUP Stat 05/01/2024 11:59 AM MONUMENT SETTER Encounter for blood typing XR CHEST PA AND LATERAL 2 VW Routine 04/20/2024 12:31 PM MONUMENT SETTER Spinal stenosis in cervical region EKG 12-LEAD Routine 04/20/2024 12:10 PM MONUMENT SETTER TYPE AND SCREEN Routine 04/20/2024 11:49 AM MONUMENT SETTER EXTRA TUBE (URINE FAYE) Routine 04/20/2024 11:49 AM MONUMENT SETTER PTT Routine 04/20/2024 11:49 AM MONUMENT SETTER PROTIME-INR Routine 04/20/2024 11:49 AM MONUMENT SETTER URINALYSIS W/REFLEX MICROSCOPIC Routine 04/20/2024 11:49 AM MONUMENT SETTER BASIC METABOLIC PANEL Routine 04/20/2024 11:49 AM MONUMENT SETTER CBC WITH DIFFERENTIAL Routine 04/20/2024 11:49 AM MONUMENT SETTER from Last 3 Months Results * TELEMETRY REPORT (05/26/2024 10:05 AM MONUMENT SETTER) Only the most recent of7 resultswithin the time period is included. us Provider Scanning ECG ORDERABLES Final Result * (ABNORMAL) CBC WITHOUT DIFFERENTIAL (05/04/2024 9:52 AM MONUMENT SETTER) WBC 8.9 4.0 - 9.8 K/uL 05/04/2024 10:03 AM MONUMENT SETTER [facility] RBC 4.10 3.90 - 4.90 M/uL 05/04/2024 10:03 AM MONUMENT SETTER [facility] HEMOGLOBIN 12.0 11.8 - 14.8 g/dL 05/04/2024 10:03 AM MONUMENT SETTER [facility] HEMATOCRIT 37.4 35.5 - 44.0 % 05/04/2024 10:03 AM MONUMENT SETTER [facility] MCV 91.2 82.0 - 99.0 fL 05/04/2024 10:03 AM [facility] MCH 29.3 27.2 - 32.6 pg 05/04/2024 10:03 AM [facility] MCHC 32.1 31.5 - 35.5 g/dL 05/04/2024 10:03 AM [facility] PLATELETS 141 140 - 350 K/uL 05/04/2024 10:03 AM [facility] MPV 9.0(L) 9.3 - 12.4 fL 05/04/2024 10:03 AM [facility] RDW 12.6 11.5 - 14.5 % 05/04/2024 10:03 AM [facility] [employer] [facility] RDW-STDEV 42.0 37.1 - 48.7 fL 05/04/2024 10:03 AM [facility] [employer] [facility] Blood Venipuncture / Unknown 05/04/2024 9:52 AM MONUMENT SETTER 05/04/2024 10:03 AM MONUMENT SETTER Raghavendra Begum MD HEMATOLOGY ORDERABLES Final Re sult [facility] CLIA# [id number] [place] [address] * (ABNORMAL) BASIC METABOLIC PANEL (05/04/2024 9:52 AM MONUMENT SETTER) Only the most recent of3 resultswithin the time period is included. SODIUM 139 136 - 145 mmol/L 05/04/2024 10:27 AM [facility] [employer] [facility] POTASSIUM 4.5 3.4 - 5.1 mmol/L 05/04/2024 10:27 AM [facility] [employer] [facility] CHLORIDE 100 98 - 107 mmol/L 05/04/2024 10:27 AM [facility] [employer] [facility] CO2 27 22 - 29 mmol/L 05/04/2024 10:27 AM [facility] CALCIUM 9.7 8.6 - 10.4 mg/dL 05/04/2024 10:27 AM [facility] BUN 10 6 - 20 mg/dL 05/04/2024 10:27 AM [facility] CREATININE 0.63 0.51 - 0.95 mg/dL 05/04/2024 10:27 AM [facility] Comment:The GFR result is no t clinically significant on patients <18 or >70 years of age. GLUCOSE 114(H) 74 - 99 mg/dL 05/04/2024 10:27 AM [facility] GFR >60 mL/min/1.7 3 sq meter 05/04/2024 10:27 AM [facility] Comment:eGFR calculated with 2020 CKD-EPI equation. Vegetarian diet, extremely high or low muscle mass, and may affect results. Cystatin C with Glomerular Filtration Rate is a suitable alternative for these patients. ANION GAP 12 8 - 16 mmol/L 05/04/2024 10:27 AM [facility] Blood Venipuncture / Unknown 05/04/2024 9:52 AM MONUMENT SETTER 05/04/2024 9:59 AM MONUMENT SETTER Raghavendra Begum MD CHEMISTRY ORDERABLES Final Res ult [facility]# [id number] [place] [address] * HEMOGLOBIN AND HEMATOCRIT (05/02/2024 5:03 AM MONUMENT SETTER) HEMOGLOBIN 12.9 11.8 - 14.8 g/dL 05/02/2024 5:41 AM [facility] HEMATOCRIT 39.6 35.5 - 44.0 % 05/02/2024 5:41 AM [facility] Blood Venipuncture / Unknown 05/02/2024 5:03 AM MONUMENT SETTER 05/02/2024 5:41 AM MONUMENT SETTER Dorian Arana MD HEMATOLOGY ORDERABLES Final Result [facility] [id number] [place] [address] * XR FLUORO LESS THAN 1 HOUR (05/01/2024 5:55 PM MONUMENT SETTER) Only the most recent of3 resultswithin the time period is included. Anatomical Region Laterality Modality Computed Radiogr aphy 05/01/2024 5:57 PM MONUMENT SETTER Narrative 05/01/2024 6:00 PM MONUMENT SETTER Intraoperative fluoroscopy HISTORY: Pain FINDINGS: Images show changes of cervical spine fusion and exposure. No radiologist present. Total fluoroscopy time is 0.17 minutes and the air kerma is 6.9 mgy. DICTATION LOCATION: [address] Procedure Note Stefano Quan MD - 05/01/2024 Intraoperative fluoroscopy HISTORY: Pain FINDINGS: Images show changes of cervical spine fusion and exposure. No radiologist present. Total fluoroscopy time is 0.17 minutes and the air kerma is 6.9 mgy. DICTATION LOCATION: [address] Dorian Arana MD DIAGNOSTIC IMAGING ORDERABLE S Final Result * XR CERVICAL SPINE 1 VW (05/01/2024 3:39 PM MONUMENT SETTER) Anatomical Region Laterality Modality Spine Computed Radiogr aphy 05/01/2024 3:39 PM MONUMENT SETTER Impressions 05/01/2024 3:56 PM MONUMENT SETTER FINDINGS/IMPRESSION: An intraoperative image of the lateral cervical spine demonstrates localization of the C3-4 level. DICTATION LOCATION: Location [address] [place] [address] Narrative 05/01/2024 3:56 PM MONUMENT SETTER EXAMINATION: XR CERVICAL SPINE 1 VW DATE: 05/01/2024 3:39 PM HISTORY: Pain; Spinal stenosis in cervical region; Encounter for blood typing COMPARISON: None Procedure Note Marlo Thomas MD - 05/01/2024 EXAMINATION: XR CERVICAL SPINE 1 VW DATE: 05/01/2024 3:39 PM HISTORY: Pain; Spinal stenosis in cervical region; Encounter for blood typing COMPARISON: None FINDINGS/IMPRESSION: An intraoperative image of the lateral cervical spine demonstrates localization of the C3-4 level. DICTATION LOCATION: Location [address] [place] [address] Dorian Arana MD DIAGNOSTIC IMAGING ORDERABLE S Final Result * MI ANES INSERT CATH, ART, PERCUT, SHORTTERM (05/01/2024 2:51 PM MONUMENT SETTER) Narrative Naa Barth AA - 05/01/2024 2:51 PM MONUMENT SETTER Naa Barth AA 05/01/2024 2:51 PM Arterial Line Insertion Start Time: 05/01/2024 2:12 PM End Time: 05/01/2024 2:13 PM Patient location during procedure: OR Staffing Performed: Anesthesiologist (/DO) Authorized by: Lucille Frey MD Performed by: Naa Barth AA time out called Patient was prepped and draped in usual sterile fashion Indications: hemodynamic monitoring Local Anesthetic: lidocaine 1% without epinephrine Anesthetic total: 1 mL Hand hygiene performed prior to procedure Preparation: skin prepped with alcohol Skin prep agent dried: skin prep agent completely dried prior to procedure Patient position: flat Location: right radial Seldinger technique used Catheter size: 20 G Catheter Length (in.): 1 [place] Identification: palpation technique Successful placement: yes Assessment: blood return through port Post-procedure: line secured and dressing applied Lucille Frey MD PROCEDURE/MINOR SURGICAL O RDERABLES Final Result * MI ANES INSERT ENDOTRACHEAL AIRWAY (05/01/2024 2:02 PM MONUMENT SETTER) Narrative Najma Pike AA-C - 05/01/2024 2:02 PM MONUMENT SETTER Najma Pike AA-C 05/01/2024 2:16 PM Airway Date/Time: 05/01/2024 2:02 PM Location: OR Plan: routine intubation Patient Identity Confirmed by: Verbally with patient and armband Staffing Performed: ROAD MECHANIC/CAA Authorized by: Lucille Frey MD Performed by: Najma Pike AA-C Indications and Patient Condition: Indications for Airway Management: Anesthesia Sedation Level: general anesthesia Preoxygenated: yes Patient Position: Sniffing Mask Difficulty Assessment: 1 - vent by mask Plan to extubate at end of case: Yes Final Airway Details: Final Airway Type: Endotracheal airway ETT Cuffed: Yes Cuff Volume (mL): 8 Technique Used for Successful ETT Placement: Video laryngoscopy Devices/Methods Used in Placement: Cricoid pressure and intubating stylet Reason for advanced technique: pre-op assessment and prior history Blade Size: 3 Insertion Site: Oral ETT Size (mm): 7.0 Video Laryngoscopy Devices: GlideScope Measured from: Teeth ETT to Teeth (cm): 23 Tube secured with: Tape Placement Verified by: auscultation, end tidal CO2 and chest rise Cormack-Lehane Classification: Grade I - full view of glottis Number of Attempts at Approach: 1 Additional Procedure Information: atraumatic and dentition unchanged us Lucille Frey MD PROCEDURE/MINOR SURGICAL O RDERABLES Final Result * VERIFICATION BLOOD GROUP (05/01/2024 11:59 AM MONUMENT SETTER) ABO GROUP A 05/01/2024 12:34 PM MONUMENT SETTER [facility] RH (D) TYPE Positive 05/01/2024 12:34 PM MONUMENT SETTER [facility] Blood Venipuncture / Unknown 05/01/2024 11:59 AM MONUMENT SETTER 05/01/2024 11:59 AM MONUMENT SETTER us Dorian Arana MD BLOOD BANK ORDERABLES Final Result [facility] [employer] [facility] CLIA# [id number] [place] [address] * XR CHEST PA AND LATERAL 2 VW (04/20/2024 12:31 PM MONUMENT SETTER) Anatomical Region Laterality Modality Chest Computed Radiogr aphy 04/20/2024 12:3 2 PM MONUMENT SETTER Impressions 04/20/2024 2:09 PM MONUMENT SETTER IMPRESSION: Discoid atelectasis in the lingula Hyperinflation Left ventricular enlargement No acute infiltrate. DICTATION LOCATION: Location 7 - [facility] Narrative 04/20/2024 2:09 PM MONUMENT SETTER CHEST PA AND LATERAL VIEWS DATE: 04/20/2024 12:31 PM HISTORY: See Diagnosis Spinal stenosis in cervical region COMPARISON: No prior studies are available for comparison. FINDINGS: Examination of the chest in PA and lateral projections shows lung field hyperinflation. There is left ventricular enlargement. An epidural stimulators present in the thoracic spine. Spondylosis is present. Cervical fusion is been performed. There is discoid atelectasis in the lingula INCIDENTAL FINDINGS: None. Procedure Note Rock Humphries MD - 04/20/2024 CHEST PA AND LATERAL VIEWS DATE: 04/20/2024 12:31 PM HISTORY: See Diagnosis Spinal stenosis in cervical region COMPARISON: No prior studies are available for comparison. FINDINGS: Examination of the chest in PA and lateral projections shows lung field hyperinflation. There is left ventricular enlargement. An epidural stimulators present in the thoracic spine. Spondylosis is present. Cervical fusion is been performed. There is discoid atelectasis in the lingula INCIDENTAL FINDINGS: None. IMPRESSION: Discoid atelectasis in the lingula Hyperinflation Left ventricular enlargement No acute infiltrate. DICTATION LOCATION: Location [address] [place] [address] us Dorian Arana MD DIAGNOSTIC IMAGING ORDERABLE S Final Result * EKG 12-LEAD (04/20/2024 12:10 PM MONUMENT SETTER) 04/20/2024 12:1 0 PM MONUMENT SETTER Narrative INTERFACE SYSTEM - 04/20/2024 12:[address] [address] Test Date: 2024-04-20 Pat Name: NAYA BARRETT Department: 60 Room: Gender: Female [employer] Projects Supervisor: MASTER : 1945 Requested By: DORIAN Levy Order Number: [id number] Reading MD: Brian Duggan Measurements Intervals [place] Rate: 53 P: 60 MI: 194 QRS: 26 QRSD: 86 T: 22 QT: 446 QTc: 418 Interpretive Statements Sinus bradycardia Possible Left atrial enlargement Borderline ECG No previous ECG available for comparison Electronically Signed On 04-20-2024 12:42:13 MONUMENT SETTER by Brian Duggan Procedure Note Brian Duggan MD - 04/20/2024 [place] [address] Test Date: 2024-04-20 Pat Name: NAYA BARRETT Department: 60 Room: Gender: Female [employer] Supervisor: MASTER : 1945 Requested By: DORIAN Levy Order Number: [id number] Reading MD: Brian Duggan Measurements Intervals [place] Rate: 53 P: 60 MI: 194 QRS: 26 QRSD: 86 T: 22 QT: 446 QTc: 418 Interpretive Statements Sinus bradycardia Possible Left atrial enlargement Borderline ECG No previous ECG available for comparison Electronically Signed On 04-20-2024 12:42:13 MONUMENT SETTER by Brian Duggan us Dorian Arana MD ECG ORDERABLES Final Result Performing Organization Address City/[facility] Co de Phone Number INTERFACE SYSTEM Refer to clinic/hospital department * EXTRA TUBE (URINE FAYE) (04/20/2024 11:49 AM MONUMENT SETTER) Urine URINE SPECIMEN OBTAINED BY CLEAN CATCH PROCEDURE / Unknown Collection / Unknown 04/20/2024 11:49 AM MONUMENT SETTER 04/20/2024 12:25 PM MONUMENT SETTER us Dorian Arana MD URINE ORDERABLES Final Resul t Performing Organization Address City/[facility] Co de Phone Number [facility] CLIA# [id number] [address] [place] [address] * (ABNORMAL) CBC WITH DIFFERENTIAL (04/20/2024 11:49 AM MONUMENT SETTER) WBC 4.9 4.5 - 10.5 K/uL 04/20/2024 12:29 PM MONUMENT SETTER [facility] RBC 4.90 3.90 - 4.90 M/uL 04/20/2024 12:29 PM MONUMENT SETTER [facility] HEMOGLOBIN 14.4 11.8 - 14.8 g/dL 04/20/2024 12:29 PM MONUMENT SETTER [facility] [facility] HEMATOCRIT 43.4 35.5 - 44.0 % 04/20/2024 12:29 PM [facility] MCV 88.6 82.0 - 99.0 fL 04/20/2024 12:29 PM [facility] MCH 29.3 27.8 - 34.5 pg 04/20/2024 12:29 PM [facility] MCHC 33.1 32.5 - 35.5 g/dL 04/20/2024 12:29 PM [facility] [employer] [facility] RDW 13.7 11.5 - 14.5 % 04/20/2024 12:29 PM [facility] PLATELETS 188 160 - 420 K/uL 04/20/2024 12:29 PM [facility] [employer] [facility] MPV 7.8(L) 8.7 - 12.7 fL 04/20/2024 12:29 PM [facility] NEUTROPHILS 57 % 04/20/2024 12:29 PM MONUMENT SETTER [facility] LYMPHOCYTES 31 % 04/20/2024 12:29 PM MONUMENT SETTER [facility] MONOCYTES 8 % 04/20/2024 12:29 PM MONUMENT SETTER [facility] EOSINOPHILS 4 % 04/20/2024 12:29 PM MONUMENT SETTER [facility] [employer] [facility] BASOPHILS 1 % 04/20/2024 12:29 PM [facility] NEUTROPHIL ABSOLUTE 2.80 1.90 - 7.00 K/uL 04/20/2024 12:29 PM [facility] [employer] [facility] LYMPHOCYTE ABSOLUTE 1.50 0.70 - 4.50 K/uL 04/20/2024 12:29 PM [facility] MONOCYTE ABSOLUTE 0.40 0.10 - 1.30 K/uL 04/20/2024 12:29 PM MONUMENT SETTER [facility] EOSINOPHIL ABSOLUTE 0.20 0.00 - 0.70 K/uL 04/20/2024 12:29 PM [facility] BASOPHILS ABSOLUTE 0.00 0.00 - 0.20 K/uL 04/20/2024 12:29 PM [facility] [employer] [facility] Blood Venipuncture / Unknown 04/20/2024 11:49 AM MONUMENT SETTER 04/20/2024 12:25 PM MONUMENT SETTER Dorian Arana MD HEMATOLOGY ORDERABLES Final Result [facility] CLIA# [id number] [place] [address] * (ABNORMAL) URINALYSIS WITH REFLEX MICROSCOPIC (04/20/2024 11:49 AM MONUMENT SETTER) COLOR UA Yellow Pale to Dark Yellow 04/20/2024 12:31 PM [facility] CLARITY UA Clear Clear 04/20/2024 12:31 PM [facility] SPECIFIC GRAVITY UA 1.015 1.003 - 1.035 04/20/2024 12:31 PM [facility] PH UA 6.0 5.0 - 8.0 04/20/2024 12:31 PM [facility] LEUKOCYTE ESTERASE UA Negative Negative 04/20/2024 12:31 PM [facility] NITRITE UA Negative Negative 04/20/2024 12:31 PM [facility] PROTEIN UA Negative Negative 04/20/2024 12:31 PM [facility] GLUCOSE UA Negative Negative 04/20/2024 12:31 PM [facility] KETONES UA Negative Negative 04/20/2024 12:31 PM [facility] UROBILINOGEN UA Normal <2.0 mg/dL 12:31 PM [facility] BILIRUBIN UA Negative Negative 04/20/2024 12:31 PM [facility] BLOOD UA Negative Negative 04/20/2024 12:31 PM [facility] Comment:Ascorbic acid may ca use false negative results for blood. A microscopic review was reflexed to rule out this interference. Ascorbic Acid UA Positive(A) Negative 024 12:31 PM [facility] Urine URINE SPECIMEN OBTAINED BY CLEAN CATCH PROCEDURE / Unknown Collection / Unknown 04/20/2024 11:49 AM MONUMENT SETTER 04/20/2024 12:25 PM MONUMENT SETTER Dorian Arana MD URINE ORDERABLES Final Resul t Performing Organization Address City/[facility] Co de Phone Number [facility] [id number] [place] [address] * PTT (04/20/2024 11:49 AM MONUMENT SETTER) PTT 27.0 23.1 - 37.1 seconds 04/20/2024 12:59 PM MONUMENT SETTER [facility] Blood Venipuncture / Unknown 04/20/2024 11:49 AM MONUMENT SETTER 04/20/2024 12:25 PM MONUMENT SETTER Dorian Arana MD HEMATOLOGY ORDERABLES Final Result Performing Organization Address [facility] Co de Phone Number [facility] [employer] [facility]# [id number] [place] [address] * PROTIME-INR (04/20/2024 11:49 AM MONUMENT SETTER) PROTIME 12.6 11.5 - 14.7 Seconds 04/20/2024 12:59 PM MONUMENT SETTER [facility] INR 0.9 0.9 - 1.1 04/20/2024 12:59 PM MONUMENT SETTER [facility] [employer] [facility] Blood Venipuncture / Unknown 04/20/2024 11:49 AM MONUMENT SETTER 04/20/2024 12:25 PM MONUMENT SETTER Dorian Arana MD HEMATOLOGY ORDERABLES Final Result Performing Organization Address City/[facility]/ZIP Co de Phone Number [facility] [employer] [facility]# [id number] [place] [address] * TYPE AND SCREEN (04/20/2024 11:49 AM MONUMENT SETTER) ABO GROUP A 04/20/2024 1:41 PM MONUMENT SETTER [facility] RH (D) TYPE Positive 04/20/2024 1:41 PM MONUMENT SETTER [facility] ANTIBODY SCREEN Negative 1:41 PM MONUMENT SETTER [facility] Comment:T&S exp: 05/04/24 Ve rification Needed Blood Venipuncture / Unknown 04/20/2024 11:49 AM MONUMENT SETTER 04/20/2024 12:25 PM MONUMENT SETTER Dorian Arana MD BLOOD BANK ORDERABLES Edited Result - Final [facility] CLIA# [id number] [place] [address] from Last 3 Months Insurance MEDICARE PART A AND B [facility] [id number] [place] [address] Advance Directives For more information, please contact: [phone] * Full Code (Latest Code Status on File) Date Activated Date Inactivated Comments 05/02/2024 9:28 AM 05/04/2024 6:40 PM
--- OUTSIDE RECORDS SUMMARY | 2024-07-19 15:46 | XMS_ITS | Referral Summary ---
Author Organization [facility] Address [address] [place] [phone] Care Team Providers Care Lasting Machine Operator Name Role Phone Roslyn Covington DO Primary Care Provider + Allergies Active Allergy Reactions Criticality Noted Date Comments Adhesive Tape-Silicones Other (See comments),Hives Reaction: SKIN IRRITATION, HIVES, Lidocaine Other (See comments) Low 06/16/2009 Trouble with tape, not with medicine Monoamine Oxidase Inhibitors Other (See comments) Low Reaction: HYPERTENSION, Other Other (See comments) Low 06/27/2017 Oxycodone Itching Reaction: ITCHING Sulfa (Sulfonamide Antibiotics) Swelling Reaction: SWELLING Medications levothyroxine (SYNTHROID, LEVOTHROID) 100 mcg tablet 11/24/2017 Active oxyCODONE-acetamin ophen (PERCOCET) 10-325 mg per tabletIndications: Pain 0 01/26/2018 Active QUEtiapine (SEROquel) 50 mg tablet 11/17/2017 Active nortriptyline (PAMELOR) 10 mg capsule 03/27/2019 Active doxycycline (ADOXA) 100 mg tablet 03/28/2019 Active PROAIR HFA 90 mcg/actuation inhaler 03/28/2019 Active Active Problems Problem Noted Date Diagnosed Date Subacromial bursitis of right shoulder joint 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 Pain in the shoulder 06/24/2017 Back pain 09/15/2015 Abnormal finding on mammography 08/29/2014 Colon polyps 04/03/2013 Anxiety state 06/23/2010 Chest pain 06/16/2009 Neurasthenia 09/11/2008 Bile duct stricture 09/09/2008 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 Chronic fatigue 09/09/2008 Costochondritis 09/09/2008 Depression 09/09/2008 Hypothyroidism 09/09/2008 Temporomandibular joint disorder 09/09/2008 Tenosynovitis 09/09/2008 Social History Tobacco Use Types Packs/Day Years Used Date Smoking Tobacco: Never Smokeless Tobacco: Never Alcohol Use Standard Drinks/Week Comments Never 0 (1 standard drink = 0.6 oz pur e alcohol) AUDIT-C Answer Date Recorded Frequency of Alcohol Consumption Never 04/24/2020 Average Number of Drinks Not on file 020 Frequency of Binge Drinking Not on file 04/15 Personal Safety Answer Date Recorded Getting School Help Needed Not on file 07/29 Comments Unknown Sex and Gender Information Value Date Recorded Sex Assigned at Not on file 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 Gender Identity Not on file Sexual Orientation Not on file Last Filed Vital Signs Vital Sign Reading Time Taken Comments Blood Pressure 142/75 02/13/2018 12:03 PM CDT Pulse 73 02/13/2018 12:03 PM CDT Temperature - - Respiratory Rate 16 02/13/2018 12:0 3 PM CDT Oxygen Saturation 96% 02/13/2018 12: 03 PM CDT Inhaled Oxygen Concentration - - Weight 78.5 kg (172 lb 15.9 oz) 015 10:37 AM CDT Height 161.3 cm (5' 3.5 ) 08/27/2014 10 :37 AM CDT Body Mass Index 30.16 08/27/2014 10:37 AM CDT Plan of Treatment Not on file Medical Devices Implanted Type Area Vehicle Body Builder Device Identifier Shelf Expiration Date Model / Serial / Lot Spinal Cord Stimulator- Implanted: (Quantity not on file) Spinal Cord Stimulator Lumbar-Sa cral Spine [id number] / [id number] / Insurance MEDICARE [facility] MEDICARE [facility] Care Teams Lasting Machine Operator Relationship Specialty Start Date End Date Roslyn Covington DO [facility] [place] [address] PCP - General 07/27/17
--- OUTSIDE RECORDS SUMMARY | 2024-07-19 15:46 | XMS_ITS | Encounter Summary ---
Author Organization [facility] Address 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
--- OUTSIDE RECORDS SUMMARY | 2024-07-19 15:46 | XMS_ITS | Referral Summary ---
Author Organization [facility] Address [address] [place] [address] Care Team Providers Care Trash Hauler Name Role Phone Adria Roslyn Primary Care Provider [phone] Source Comments [facility],non-owned Affiliates and Associated Physician Practices is amultiple site organization consisting of ambulatory clinics and hospital sitesin [place], [place], [place] and [place]. This disclosure is being madepursuant to the Care Everywhere program and may not contain all information available regarding this patient. Last updated 18.[facility] Allergies Active Allergy Reactions Criticality Noted Date Comments Adhesive Sensitivity Urticaria Medium 01/15/2021 Reaction: SKIN IRRITATION, HIVES, Contrast-Iodinated Agents For Ct/Other Swelling Low 01/15/2021 Reaction: HYPERTENSION, Lidocaine Other 06/16/2009 Trouble with tape, not with medicine Sulfa Drugs Other,Swelling Low 06/27/2017 Does not remember the exact reaction Reaction: SWELLING Medications * Be aware that medications may not be up to date on this document. Alwaysverify current medications with the patient. 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,Hashimo to's thyroiditis TAKE 1 TABLET BY MOUTH DAILY BEFORE BREAKFAST FOR UNDERACTIVE THYROID 90 tablet 3 05/12/2023 Active Active Problems Problem Noted Date Diagnosed Date Colon polyps 04/03/2013 Anxiety state 06/23/2010 Chest pain 06/16/2009 Enthesopathy 09/20/2008 Thyroiditis 09/20/2008 Neurasthenia 09/11/2008 Bile duct stricture 09/09/2008 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 (AF LURIA, FLUZONE TRIVALENT; 6MO+) (IIV3) 03/25/2011,02/14/2009 FLU, HISTORIC VACCINE 04/07/2022 INFLUENZA VACCINE 04/23/2010 INFLUENZA VACCINE, ADJUVANTE D, QUADR. (FLUAD QUADRIVALENT; 65Y+) (AIIV4) 02/11/2020 INFLUENZA VACCINE, ADJUVANTE D, TRIV. (FLUAD TRIVALENT; 65Y+) (AIIV3) 04/16/2019 INFLUENZA VACCINE, HIGH-DOSE , QUADR. (FLUZONE HIGH-DOSE QUADRIVALENT; 65Y+), 0.7 ML (HD-IIV4) 04/03/2013 ZOSTER VACCINE, LIVE 08/26/2011 Social History Tobacco Use Types Packs/Day Years Used Date Smoking Tobacco: Never Smokeless Tobacco: Never Tobacco Cessation:Counseling Given: Not Answered Alcohol Use Standard Drinks/Week Comments No 0 (1 standard drink = 0.6 oz pur e alcohol) Sex and Gender Information Value Date Recorded Sex Assigned at Not on file Gender Identity Not on file Sexual Orientation Not on file Last Filed Vital Signs Vital Sign Reading Time Taken Comments Blood Pressure 128/70 05/20/2022 4:10 PM ELECTRIC ENGINE MECHANIC Pulse 72 05/20/2022 4:10 PM ELECTRIC ENGINE MECHANIC Temperature 36.2 C (97.1 F) 05/20/2022 4:10 PM ELECTRIC ENGINE MECHANIC Respiratory Rate 18 05/20/2022 4:10 PM ELECTRIC ENGINE MECHANIC Oxygen Saturation 93% 05/20/2022 4:10 PM ELECTRIC ENGINE MECHANIC Inhaled Oxygen Concentration - - Weight 79.6 kg (175 lb 6.4 oz) 05/20/2022 4:10 P M ELECTRIC ENGINE MECHANIC Height 161.3 cm (5' 3.5 ) 05/20/2022 4:10 PM ELECTRIC ENGINE MECHANIC Body Mass Index 30.58 05/20/2022 4:10 PM ELECTRIC ENGINE MECHANIC Plan of Treatment Not on file Care Teams Trash Hauler Relationship Specialty Start Date End Date Roslyn Covington DO [address] [place] [phone] PCP - General Family Medicine 01/17/20
--- OUTSIDE RECORDS SUMMARY | 2024-07-19 15:46 | XMS_ITS | Clinical Summary ---
Author Organization [facility] Address [address] [place] [phone] Care Team Providers Care Fabric Sourcer Name Role Phone Roslyn Covington DO Primary [...] 09/09/2008 Temporomandibular joint disorder 09/09/2008 Tenosynovitis 09/09/2008 Surgical History Surgery Date Site/Laterality Comments BACK SURGERY Back Surgery - x5 in the last 2 12/years (Added by TW Conv) FLUORO GUIDED INJECTION SHOULDER LEFT 02/13/2018 Left Medical History Medical History Date Comments Personal history of other me ntal and behavioral disorders History of depression - (Add ed by TW Conv) Personal history of other me ntal and behavioral disorders History of anxiety - (Added by TW Conv) Family History Medical History Relation Name Comments Cancer Father Family history of malignant neoplasm - (Added by TW Conv) Heart disease Father Family history of cardiac disorder - (Added by TW Conv) Stroke Father Family history of cerebrovascular accident (CVA) - (Added by TW Conv) Cancer Mother Family history of malignant neoplasm - (Added by TW Conv) Stroke Mother Family history of cerebrovascular accident (CVA) - (Added by TW Conv) Stroke Other 1 Family history of cerebrovascular accident - (Added by TW Conv) Osteoporosis Other 2 Family history of osteoporosis - (Added by TW Conv) Breast cancer Other 3 Family history of breast cancer - (Added by TW Conv) Colon cancer Other 4 Colon cancer - (Added by TW Conv) Multiple myeloma Other 5 Family hist ory of multiple myeloma - (Added by TW Conv) Heart disease Other 6 Family history of cardiac disorder - (Added by TW Conv) Relation Name Status Comments Father Mother Other 1 Other 2 Other 3 Other 4 Other 5 Other 6 Social History Tobacco Use Types Packs/Day Years [...] on file Legal Sex Female 9:05 PM GASOLINE PUMP 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 Gender Identity Not on file Sexual Orientation Not on file Obstetrics History Last Filed Vital Signs Vital Sign Reading [...] on file Medical Devices Implanted Type Area Wrinkle Chaser Device Identifier Shelf Expiration Date Model / Serial / Lot Spinal Cord Stimulator- Implanted: (Quantity not on file) Spinal Cord Stimulator Lumbar-Sa cral Spine [id number] / [id number] / Insurance MEDICARE [facility] MEDICARE [facility] Care Teams Fabric Sourcer Relationship Specialty Start Date End Date Roslyn Covington DO [address] [place] [id number] PCP - General 07/27/17
--- OUTSIDE RECORDS SUMMARY | 2024-07-19 15:46 | XMS_ITS | Encounter Summary ---
Author Organization [facility] Address [address] [place] [address] Care Team Providers Care Runway Model Name Role Phone Unavailable Primary Care Provider Unavailabl e Encounter Details Date Type Department Care Team (Latest Contact Info) Description 08/10/1999 Outpatient Historical HIS MIRTA Hutchinson, Rylan Fernandez MD [address] [facility] [address] [place] [address] Major depressive disorder, recurrent episode, unspecified (Primary Dx) Social History Tobacco Use Types Packs/Day Years Used Date Smoking Tobacco: Never Assessed Comments Unknown Sex and Gender Information Value Date Recorded Sex Assigned at Not on file 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
--- OUTSIDE RECORDS SUMMARY | 2024-07-19 15:46 | XMS_ITS | Patient Health Summary ---
Author Organization [facility] Address [address] [place] [address] Care Team Providers Care Business Development Officer Name Role Phone Whitley Covingtonfer Primary Care Provider Note from [facility],non-owned Affiliates and Associated Physician Practices is amultiple site organization consisting of ambulatory clinics and hospital sitesin [place], [place], [place] and [place]. This disclosure is being madepursuant to the Care Everywhere program and may not contain all information available regarding this patient. Last updated 18.[facility] Allergies * Adhesive Sensitivity(Urticaria) -Medium Criticality * Contrast-Iodinated Agents For Ct/Other(Swelling) -Low Criticality * Lidocaine(Other) * Sulfa Drugs(Other,Swelling) -Low Criticality Medications * Be aware that medications may not be up to date on this document. Alwaysverify current medications with the patient. * escitalopram (LEXAPRO) 20 MG tablet(Started 11/17/2017) Take 1 (one) tablet by mouth once daily 3 refills left * QUE[facility] (SEROQUEL) 50 MG tablet(Started 11/17/2017) Take 1 (one) tablet by mouth at bedtime 3 refills left * methadone (DOLOPHINE) 5 MG tablet(Started 12/27/2018) Take 1 (one) tablet by mouth Bid; one in the morning and one in the evening * levothyroxine (Synthroid) 112 MCG tablet(Started 05/12/2023) TAKE 1 TABLET BY MOUTH DAILY BEFORE BREAKFAST FOR UNDERACTIVE THYROID 3 refills by 05/11/2024 Active Problems Problem Noted Date Diagnosed Date Colon polyps 04/03/2013 Anxiety state 06/23/2010 Chest pain 06/16/2009 Enthesopathy 09/20/2008 Thyroiditis 09/20/2008 Neurasthenia 09/11/2008 Bile duct stricture 09/09/2008 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 (AFLURIA, FLUZONE TRIVALENT; 6MO+) (IIV3)(Given 03/25/2011, 02/14/2009) * FLU, HISTORIC VACCINE(Given 04/07/2022) * INFLUENZA VACCINE(Given 04/23/2010) * INFLUENZA VACCINE, ADJUVANTED, QUADR. (FLUAD QUADRIVALENT; 65Y+) (AIIV4)(Given 02/11/2020) * INFLUENZA VACCINE, ADJUVANTED, TRIV. (FLUAD TRIVALENT; 65Y+) (AIIV3)(Given 04/16/2019) * INFLUENZA VACCINE, HIGH-DOSE, QUADR. (FLUZONE HIGH-DOSE QUADRIVALENT; 65Y+), 0.7 ML (HD-IIV4)(Given 04/03/2013) * ZOSTER VACCINE, LIVE(Given 08/26/2011) Social History Tobacco Use Types Packs/Day Years [...] Comments Blood Pressure 128/70 05/20/2022 4:10 PM LENS ASSORTER Pulse 72 05/20/2022 4:10 PM LENS ASSORTER Temperature 36.2 C (97.1 F) 05/20/2022 4:10 PM LENS ASSORTER Respiratory Rate 18 05/20/2022 4:10 PM LENS ASSORTER Oxygen Saturation 93% 05/20/2022 4:10 PM LENS ASSORTER Inhaled Oxygen Concentration - - Weight 79.6 kg (175 lb 6.4 oz) 05/20/2022 4:10 P M LENS ASSORTER Height 161.3 cm (5' 3.5 ) 05/20/2022 4:10 PM LENS ASSORTER Body Mass Index 30.58 05/20/2022 4:10 PM LENS ASSORTER Procedures * LAB RESULTS ORDER(Performed 06/14/2022) * LAB RESULTS ORDER(Performed 06/14/2022) * LAB RESULTS ORDER(Performed 01/12/2021) * LAB RESULTS ORDER(Performed 01/12/2021) * LAB RESULTS ORDER(Performed 02/16/2019) * LAB RESULTS ORDER(Performed 11/25/2017) * LAB HISTORICAL RESULTS-ONBASE(Performed 12/01/2016) * LAB HISTORICAL RESULTS-ONBASE(Performed 12/01/2016) * LAB HISTORICAL RESULTS-ONBASE(Performed 12/01/2016) * LAB HISTORICAL RESULTS-ONBASE(Performed 06/02/2016) * LAB HISTORICAL RESULTS-ONBASE(Performed 06/02/2016) * LAB HISTORICAL RESULTS-ONBASE(Performed 12/08/2015) * LAB HISTORICAL RESULTS-ONBASE(Performed 12/08/2015) * LAB HISTORICAL RESULTS-ONBASE(Performed 12/18/2014) * LAB HISTORICAL RESULTS-ONBASE(Performed 08/15/2014) * EKG 12-LEAD(Performed 04/03/2013) * TSH(Performed 07/04/2012) * LAB HISTORICAL RESULTS-ONBASE(Performed 07/04/2012) * LAB HISTORICAL RESULTS-ONBASE(Performed 03/17/2012) * THYROID PEROXIDASE ANTIBODY(Performed 11/01/2011) * TSH(Performed 11/01/2011) * TSH(Performed 09/09/2011) * TSH(Performed 03/25/2011) * TSH RFLX FREE T4+FREE T3(Performed 02/04/2011) * T4 FREE DIRECT DIALYSIS(Performed 10/08/2010) * VITAMIN D 25-HYDROXY D2+D3(Performed 10/08/2010) * CORTISOL BLOOD AM(Performed 10/08/2010) * TSH(Performed 10/08/2010) * BASIC METABOLIC PANEL (CALCIUM TOTAL)(Performed 10/08/2010) * CBC W AUTO DIFFERENTIAL(Performed 10/08/2010) * LAB HISTORICAL RESULTS-ONBASE(Performed 04/27/2010) * LAB HISTORICAL RESULTS-ONBASE(Performed 04/23/2010) * LAB HISTORICAL RESULTS-ONBASE(Performed 04/23/2010) * LAB HISTORICAL RESULTS-ONBASE(Performed 08/11/2009) * LAB HISTORICAL RESULTS-ONBASE(Performed 07/25/2009) * TSH HI LOW REFLEX FREE T4(Performed 06/16/2009) * T4 FREE(Performed 06/16/2009) * CBC W AUTO DIFFERENTIAL(Performed 06/16/2009) * COMPREHENSIVE METABOLIC PANEL(Performed 06/16/2009) * LIPID PROFILE(Performed 06/16/2009) * CBC W AUTO DIFFERENTIAL(Performed 06/16/2009) * COMPREHENSIVE METABOLIC PANEL(Performed 06/16/2009) * LIPID PROFILE(Performed 06/16/2009) * CBC W AUTO DIFFERENTIAL(Performed 06/16/2009) * TSH HI LOW REFLEX FREE T4(Performed 10/28/2008) * T4 FREE(Performed 10/28/2008) * TSH HI LOW REFLEX FREE T4(Performed 09/09/2008) * T4 FREE(Performed 09/09/2008) Results * LAB RESULTS ORDER (06/14/2022) Only the most recent of6 resultswithin the time period is included. 06/14/2022 Narrative 06/14/2022 Ordered by an unspecified provider. Scanned Document LAB - THERAPEUTIC DR UG MONITORING ORDERABLES * LAB HISTORICAL RESULTS-ONBASE (12/01/2016) Only the most recent of16 resultswithin the time period is included. 12/01/2016 Historical Provider LAB - CHEMISTRY O RDERABLES [id number] [place] [address], [facility] * EKG 12-LEAD (04/03/2013 4:07 PM LENS ASSORTER) Narrative [facility] - 04/03/2013 4:07 PM LENS ASSORTER normal sinus rhythm Procedure Note Provider, Wade, - 10/21/2017 normal sinus rhythm Dusty Santillan MD ECG ORDERABLES [facility] * TSH (07/04/2012 2:52 PM LENS ASSORTER) Only the most recent of5 resultswithin the time period is included. TSH 3.59 0.40 - 4.50 mIU/L [facility] ([facility]) Comment: Test Performed at: [facility] [id number] [id number] TERI ANDERSON DO,MPH 07/04/2012 2:52 PM LENS ASSORTER 07/04/2012 2:53 PM LENS ASSORTER Raj Alejandro MD LAB - CHEMISTRY ORD ERABLES [facility] ([facility]) * THYROID PEROXIDASE ANTIBODY (11/01/2011 11:37 AM CDT) Pathologist [facility] Thyroid Peroxidase TPO Antibody <10 <35 IU/mL [facility] ([facility]) Comment: Test Performed at: [place] [id number] TERI ANDERSON DO,MPH 11/01/2011 11:3 7 AM CDT 11/01/2011 11:38 AM CDT Raj Alejandro MD LAB - CHEMISTRY ORD ERABLES [facility] ([facility]) * (ABNORMAL) TSH RFLX FREE T4+FREE T3 (02/04/2011 12:09 PM CDT) Pathologist [facility] TSH 0.12(L) 0.40 - 4.50 mIU/L [facility] ([facility]) Comment: REPORT COMMENT: PREFERRED LAB:->[facility] Test Performed at: [place] [id number] TERI ANDERSON DO,MPH 02/04/2011 12:0 9 PM CDT 02/04/2011 12:10 PM CDT Sulaiman Mccloud MD LAB - CHEMISTRY ORD ERABLES [facility] ([facility]) * VITAMIN D 25-HYDROXY D2+D3 BY TANDEM MASS (10/08/2010 11:31 AM CDT) Vitamin D, 25 Hydroxy 59 30 - 100 ng/mL [facility] ([facility]) Vitamin D, 25 Hydroxy D2 <4 ng/mL [facility] ([facility]) Vitamin D, 25 Hydroxy D3 59 ng/mL [facility] ([facility]) Comment: 25-OHD3 indicates both endogenous production and supplementation. 25-OHD2 is an indicator of exogenous sources such as diet or supplementation. Therapy is based on measurement of Total 25-OHD, with levels <20 ng/mL indicative of Vitamin D deficiency while levels between 20 ng/mL and 30 ng/mL suggest insufficiency. Optimal levels are >/=30 ng/mL. REPORT COMMENT: PREFERRED LAB:->[facility]; PREFERRED LAB:->[facility]; PREFERRED LAB: Test Performed at: [employer] [place] [place] [id number] [place] [phone] GAVIN CARSON MD,AP 10/08/2010 11:3 1 AM CDT 10/08/2010 11:32 AM CDT Narrative [facility] ([facility]) - 10/10/2010 3:00 PM CDT Preferred Lab:->[facility] Raj Alejandro MD LAB - CHEMISTRY ORD ERABLES [facility] ([facility]) * T4 FREE DIRECT DIALYSIS (10/08/2010 11:31 AM CDT) T4 Free Direct Dialysis 2.2 0.8 - 2.7 ng/dL [facility] ([facility]) Comment: REPORT COMMENT: PREFERRED LAB:->[facility]; PREFERRED LAB:->[facility]; PREFERRED LAB: Test Performed at: [employer] [employer] [id number] [place] [phone] RADHA CLAUDIO MD 10/08/2010 11:3 1 AM CDT 10/08/2010 11:32 AM CDT Narrative [facility] ([facility]) - 10/11/2010 12:00 PM CDT Preferred Lab:->[facility] Raj Alejandro MD LAB - CHEMISTRY ORD ERABLES Performing Organization Address [facility] de Phone Number [facility] ([facility]) * CBC W AUTO DIFFERENTIAL (10/08/2010 11:31 AM CDT) Only the most recent of4 resultswithin the time period is included. WBC 5.4 3.8 - 10.8 Thousand/u L [facility] ([facility]) RBC 4.65 3.80 - 5.10 Million/uL [facility] ([facility]) Hemoglobin 14.3 11.7 - 15.5 g/dL [facility] ([facility]) Hematocrit 42.8 35.0 - 45.0 % [facility] ([facility]) MCV 92.1 80.0 - 100.0 fL [facility] ([facility]) MCH 30.6 27.0 - 33.0 pg [facility] ([facility]) MCHC 33.3 32.0 - 36.0 g/dL [facility] ([facility]) RDW 13.7 11.0 - 15.0 % [facility] ([facility]) Platelet 188 140 - 400 Thousand/u L [facility] ([facility]) Neutrophils Absolute 3467 1500 - 7800 cells/uL [facility] ([facility]) Lymphocyte Absolute 1382 850 - 3900 cells/uL [facility] ([facility]) Monocytes Absolute 400 200 - 950 cells/uL [facility] ([facility]) Eosinophils Absolute 130 15 - 500 cells/uL [facility] ([facility]) Basophils Absolute 22 0 - 200 cells/uL [facility]) Neutrophils % 64.2 % [facility]) Lymphocytes % 25.6 % [facility]) Monocytes % 7.4 % [facility]) Eosinophils % 2.4 % [facility] ([facility]) Basophils % 0.4 % [facility] ([facility]) Comment: REPORT COMMENT: PREFERRED LAB:->[facility]; PREFERRED LAB:->[facility]; PREFERRED LAB: Test Performed at: [employer] [place] [id number] [place] [phone] TERI ANDERSON DO,MPH Venous blood specimen (specimen) 10/08/2010 11:31 AM CDT 10/08/2010 11:32 AM CDT Narrative [facility] ([facility]) - 10/08/2010 11:00 PM CDT Preferred Lab:->[facility] Raj Alejandro MD LAB - HEMATOLOGY OR DERABLES Performing Organization Address [facility] de Phone Number [facility] ([facility]) * BASIC METABOLIC PANEL (CALCIUM TOTAL) (10/08/2010 11:31 AM CDT) Glucose 94 65 - 99 mg/dL [facility] ([facility]) Comment: Fasting reference interval BUN 13 7 - 25 mg/dL [facility] ([facility]) Creatinine 0.81 0.60 - 1.18 mg/dL [facility] ([facility]) BUN/Creatinine Ratio NOT APPLICABLE 6 - 22 (calc) [facility] ([facility]) Sodium 140 135 - 146 mmol/L [facility] ([facility]) Potassium 4.9 3.5 - 5.3 mmol/L [facility] ([facility]) Chloride 103 98 - 110 mmol/L [facility] ([facility]) CO2 28 21 - 33 mmol/L [facility] ([facility]) Calcium 9.4 8.6 - 10.2 mg/dL [facility] ([facility]) Comment: REPORT COMMENT: PREFERRED LAB:->[facility]; PREFERRED LAB:->[facility]; PREFERRED LAB: Test Performed at: [facility] [id number] TERI ANDERSON DO,MPH Venous blood specimen (specimen) (Arm, Left) 10/08/2010 11:31 AM CDT 10/08/2010 11:32 AM CDT Narrative [facility] ([facility]) - 10/09/2010 12:00 AM CDT Preferred Lab:->[facility] Raj Alejandro MD LAB - CHEMISTRY ORD ERABLES Performing Organization Address [facility] de Phone Number [facility] ([facility]) * CORTISOL BLOOD AM (10/08/2010 11:31 AM CDT) Pathologist [facility] Cortisol AM 5.2 mcg/dL [facility] ([facility]) Comment: Reference Range 8 a.m. (7-9 a.m.) Specimen: 4.0-22.0 REPORT COMMENT: PREFERRED LAB:->[facility]; PREFERRED LAB:->[facility]; PREFERRED LAB: Test Performed at: [facility] [id number] TERI ANDERSON DO,MPH 10/08/2010 11:3 1 AM CDT 10/08/2010 11:32 AM CDT Narrative [facility] ([facility]) - 10/09/2010 3:00 AM CDT Preferred Lab:->[facility] Raj Alejandro MD LAB - CHEMISTRY ORD ERABLES Performing Organization Address [facility] de Phone Number [facility] ([facility]) * (ABNORMAL) TSH HI LOW REFLEX FREE T4 (06/16/2009 12:16 PM LENS ASSORTER) Only the most recent of3 resultswithin the time period is included. [facility] TSH 0.03(L) 0.40 - 4.50 mIU/L [facility] ([facility]) Comment: REPORT COMMENT: PREFERRED LAB:->[facility] Test Performed at: [employer] [facility] [id number] [place] [address] TERI ANDERSON DO,MPH 06/16/2009 12:1 6 PM LENS ASSORTER 06/16/2009 12:17 PM LENS ASSORTER Sulaiman Mccloud MD LAB - CHEMISTRY ORD ERABLES Performing Organization Address [facility] de Phone Number [facility] ([facility]) * (ABNORMAL) COMPREHENSIVE METABOLIC PANEL (06/16/2009 12:16 PM LENS ASSORTER) Only the most recent of2 resultswithin the time period is included. [facility] Glucose POCT 89 65 - 99 mg/dL [facility] ([facility]) Comment: Fasting reference interval BUN 12 7 - 25 mg/dL [facility] ([facility]) Creatinine 0.71 0.60 - 1.18 mg/dL [facility] ([facility]) eGFR non- >60 > OR = 60 mL/min/1. 73m2 [facility] ([facility]) eGFR >60 > OR = 60 mL/min/1. 73m2 [facility] ([facility]) BUN/Creatinine Ratio NOT APPLICABLE 6 - 22 (calc) [facility] ([facility]) Comment: Bun/Creatinine ratio is not reported when the BUN and creatinine values are within normal limits. Sodium 143 135 - 146 mmol/L [facility] ([facility]) Potassium 4.2 3.5 - 5.3 mmol/L [facility] ([facility]) Chloride 105 98 - 110 mmol/L [facility] ([facility]) CO2 28 21 - 33 mmol/L [facility] ([facility]) Calcium 9.3 8.6 - 10.2 mg/dL [facility] ([facility]) Total Protein 6.2 6.2 - 8.3 g/dL [facility] ([facility]) Albumin 4.2 3.6 - 5.1 g/dL [facility] ([facility]) Globulin 2.0(L) 2.2 - 3.9 g/dL (calc) [facility] ([facility]) Albumin/Globuli n Ratio 2.1 1.0 - 2.1 (calc) [facility] ([facility]) Bilirubin Total 0.5 0.2 - 1.2 mg/dL [facility] ([facility]) Alkaline Phosphatase 62 33 - 130 U/L [facility] ([facility]) AST 21 10 - 35 U/L [facility] ([facility]) ALT 18 6 - 40 U/L [facility] ([facility]) Comment: Test Performed at: [facility] [id number] [place] [address] TERI ANDERSON DO,MPH 06/16/2009 12:1 6 PM LENS ASSORTER 06/16/2009 12:17 PM LENS ASSORTER Sulaiman Mccloud MD LAB - CHEMISTRY ORD ERABLES Performing Organization Address [facility] de Phone Number [facility] ([facility]) * T4 FREE (06/16/2009 12:16 PM LENS ASSORTER) Only the most recent of3 resultswithin the time period is included. Pathologist [facility] T4 Free 1.5 0.8 - 1.8 ng/dL [facility] ([facility]) Comment: Test Performed at: [facility] [id number] [place] [address] TERI ANDERSON DO,MPH 06/16/2009 12:1 6 PM LENS ASSORTER 06/16/2009 12:17 PM LENS ASSORTER Sulaiman Mccloud MD LAB - CHEMISTRY ORD ERABLES Performing Organization Address [facility] de Phone Number [facility] ([facility]) * LIPID PROFILE (06/16/2009 12:16 PM LENS ASSORTER) Only the most recent of2 resultswithin the time period is included. Pathologist [facility] Cholesterol Total 153 125 - 200 mg/dL [facility] ([facility]) Comment: Test Performed at: [employer] [place] [address] [place] [address] TERI ANDERSON DO,MPH HDL 58 > OR = 46 mg/dL [facility] ([facility]) Triglycerides 123 <150 mg/dL [facility] ([facility]) LDL Calculated 70 <130 mg/dL (calc) [facility] ([facility]) Comment: Desirable range <100 mg/dL for patients with CHD or diabetes and <70 mg/dL for diabetic patients with known heart disease. Chol/HDL Ratio 2.6 < OR = 5.0 (calc) [facility] ([facility]) 06/16/2009 12:1 6 PM LENS ASSORTER 06/16/2009 12:17 PM LENS ASSORTER Sulaiman Mccloud MD LAB - CHEMISTRY ORD ERABLES [facility] ([facility]) Care Teams Business Development Officer Relationship Specialty Start Date End Date Roslyn Covington DO [address] [place] [phone] PCP - General Family Medicine 01/17/20
--- OUTSIDE RECORDS SUMMARY | 2024-07-19 15:46 | XMS_ITS | Clinical Summary ---
Author Organization [facility] Address [address] [place] [address] Care Team Providers Care Coding Quality Coordinator Name Role Phone Adria Roslyn Primary Care Provider [phone] Source Comments [facility],non-owned Affiliates and Associated Physician Practices is amultiple site organization consisting of ambulatory clinics and hospital sitesin [place], [place], [place] and [place]. This disclosure is being madepursuant to the Care Everywhere program and may not contain all information available regarding this patient. Last updated 18.[facility] Allergies Active Allergy Reactions Criticality Noted Date [...] ML (HD-IIV4) 04/03/2013 ZOSTER VACCINE, LIVE 08/26/2011 Family History Medical History Relation Name Comments Thyroid Disease Mother on thyroid m edicine Thyroid Disease Other grand daughter Thyroid Disease Son Relation Name Status Comments Mother Other grand daughter Alive Son Social History Tobacco Use Types Packs/Day Years [...] Comments Blood Pressure 128/70 05/20/2022 4:10 PM DAIRY AND FOOD LABORATORY ASSISTANT Pulse 72 05/20/2022 4:10 PM DAIRY AND FOOD LABORATORY ASSISTANT Temperature 36.2 C (97.1 F) 05/20/2022 4:10 PM DAIRY AND FOOD LABORATORY ASSISTANT Respiratory Rate 18 05/20/2022 4:10 PM DAIRY AND FOOD LABORATORY ASSISTANT Oxygen Saturation 93% 05/20/2022 4:10 PM DAIRY AND FOOD LABORATORY ASSISTANT Inhaled Oxygen Concentration - - Weight 79.6 kg (175 lb 6.4 oz) 05/20/2022 4:10 P M DAIRY AND FOOD LABORATORY ASSISTANT Height 161.3 cm (5' 3.5 ) 05/20/2022 4:10 PM CS T Body Mass Index 30.58 05/20/2022 4:10 PM DAIRY AND FOOD LABORATORY ASSISTANT Plan of Treatment Health Maintenance Due Date Last Done Comments BONE DENSITY TESTING 1945 MEDICARE AWV 12 MONTHS 1945 HEPATITIS C SCREENING 10/10/1965 DTAP/TDAP/TD VACCINES (1 - Tdap) 10/14/1966 PNEUMOCOCCAL VACCINE 50+ (1 of 1 - PCV) 10/14/1997 ZOSTER VACCINE (2 of 3) 10/21/2011 08/26/2011 Respiratory Syncytial Virus (RSV) Vaccine Pt: or over 60 yrs (1 - 1-dose 75+ series) 10/14/2022 COVID-19 VACCINE (3 - season) 2024 07/16/2020, 06/18/2020 INFLUENZA VACCINE (#1) 2024 2, 02/11/2020, 04/16/2019, Additional history exists DEPRESSION SCREENING 05/16/2024 HEPATITIS B VACCINE Aged Out No longe r eligible based on patient's age to complete this topic HIB VACCINE Aged Out No longer eligi ble based on patient's age to complete this topic HPV VACCINE Aged Out No longer eligi ble based on patient's age to complete this topic MENINGOCOCCAL (Group B) VACCINE Aged Out No longer eligible based on patient's age to complete this topic MENINGOCOCCAL VACCINE Aged Out No jones vick eligible based on patient's age to complete this topic Care Teams Coding Quality Coordinator Relationship Specialty Start Date End Date Roslyn Covington DO [address] [place] [phone] PCP - General Family Medicine 01/17/20
--- OUTSIDE RECORDS SUMMARY | 2024-07-19 15:46 | XMS_ITS | Encounter Summary ---
Author Organization [facility] Address [address] [place] [address] Care Team Providers Care Director Work Name Role Phone Unavailable Primary Care Provider Unavailabl e Encounter Details Date Type Department Care Team (Late st Contact Info) Description 08/18/2000 Outpatient Historical [facility] Romel Marques Er, Authorized P NO ADDRESS ON FILE Sprain of neck (Primary Dx) Social History Tobacco Use Types Packs/Day Years Used Date Smoking Tobacco: Never Assessed Comments Unknown Sex and Gender Information Value Date Recorded Sex Assigned at Not on file Legal Sex Female 5:04 AM [employer] Gender Identity Not on file Sexual Orientation Not on file documented as of this encounter Plan of Treatment Not on file documented as of this encounter Visit Diagnoses Diagnosis Sprain of neck- Primary documented in this encounter
--- OUTSIDE RECORDS SUMMARY | 2024-07-19 15:46 | XMS_ITS | Encounter Summary ---
Author Organization [facility] Address [address] [place] [address] Care Team Providers Care Sonar Subsystem Equipment Operator Name Role Phone Unavailable Primary Care Provider Unavailabl e Encounter Details Date Type Department Care Team (Latest Contact Info) Description 03/18/1998 Outpatient Historical [facility] CHRONIC PAIN Cheng Garcia MD [address] [place] [address] Myalgia and myositis, unspecified (Primary Dx) Social History Tobacco Use Types Packs/Day Years Used Date Smoking Tobacco: Never Assessed Comments Unknown Sex and Gender Information Value Date Recorded Sex Assigned at Not on file Legal Sex Female 5:04 AM 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
--- OUTSIDE RECORDS SUMMARY | 2024-07-19 15:46 | XMS_ITS ---
Author Organization [facility] Address [address] [place] [address] [address] [place] [address] Care Team Providers Care Dry Cleaner Presser Name Role Phone Miladys Zaida Harris [phone] Medications Medication SIG (Take, Route, Fr equency, Duration) Notes Start Date End Date Status tiZANidine HCl 4 MG 1 tablet Oral twice a day for 30 days Active Encounters Encounter Location Date Provider Diagnosis [facility] [id number] [place] [address] [address] [place] [address] 06/19/2024 Zaida Hook Plan Of Treatment Medication Medication Name Sig Start Date Stop Date Notes tiZANidine HCl 4 MG 1 tablet Oral twice a day for 30 days Next Appt Details Provider Name:Kirstin Stephens kelvin, 08/15/2024 12:30:00 PM, [id number] [place] [address], [address], [place], [address], Progress Notes * Julia BARRETTDOB: 8 (78 yo F)Acc No.[id number]:06/19/2024 Patient: Melo SOLOJulia DOLAN :1945 A ge:78 Y S ex:Female Address:[address] [place] [address], [address] * Refills Refill tiZANidine HCl Tablet, 4 MG, Oral, 60 Tablet, 1 tablet, twice a day, 30 days, Refills=0 * true * Date: Generated for Eva murray/Joseph/Geni on: 0 07/19/2024 03:45 PM JAVASCRIPT ENGINEER
--- NOTE | 2024-08-13 10:52 | WPDSLEEPSTUD ---
Sleep Study Date of Study: 07/19/24 Ordering Provider: Luan Faustin APRN Interpreting Physician: Shanda Santacruz DO Sleep Study Type: ASV Height: 1.6 m Weight: 71.111 kg Body Mass Index: 27.7 Neck Circumference (inches): 15 [place]: 4 Reason for Sleep Study Elevated residual AHI on compliance data. SNAP HST 01/19/24 ? severe sleep apnea, AHI 52.1, total of 191 apneas (58 central/mixed, 142 obstructive) and 9 hypopneas. Lowest O2 saturation 83% with 59min spent below 88% saturation. On AutoPAP 5-20 cm H2O Sleep History The patient is 78-year-old female with previously diagnosed severe sleep apnea that had a sleep study ordered by the pulmonary group due to an elevated residual AHI on compliance data. The patient occasionally awakens from sleep short of breath. She denies awakening at night with heartburn, belching or cough. She frequently snores and it is frequently loud enough others complain. She frequently has trouble sleeping when she has a cold. She denies waking up gasping for air throughout the night. She frequently has breathing problems at night observed by herself or others. She frequently sweats excessively at night. She frequently has heart palpitations or irregular heartbeats during the night. She frequently falls asleep during the day but never while driving. She denies sleep paralysis and cataplexy. She denies having trouble at school or work due to sleepiness. She rarely experiences vivid dreamlike scenes upon awakening or falling asleep. She denies feeling afraid of going to sleep. She frequently has nightmares. She rarely remembers her dreams. She frequently has thoughts racing through her mind. She rarely feels sad or depressed. She occasionally has anxiety. She rarely has muscular tension. She denies noticing parts of her body jerk. She denies kicking during the night. She denies having crawling and aching feelings in her legs and denies having leg pain during the night. She denies grinding her teeth during sleep and denies awakening with morning jaw pain. She is constantly bothered by pain during the day and frequently awakened by pain during the night. She occasionally wakes up feeling stiff morning. She occasionally wakes up with sore or achy muscles. She constantly wakes up with pain in the neck. She does bed between 10:30-11 p.m. on both weekdays and weekends. It takes her 1 hour to fall asleep. She wakes up once throughout the night to urinate and is able to fall back asleep within 5-10 minutes. She wakes up at 8:00 a.m. on both weekdays and weekends. She typically gets 9 hours of sleep per night. She will stay in bed for 30 minutes after waking up in the morning. She currently lives with . She denies consuming any caffeinated beverages within 2 hours of bedtime. She denies engaging in physical exercise before bedtime. She will watch television before falling asleep. She denies taking naps in the afternoon or the evening. She consumes 2 cups of coffee per day. She denies tobacco, alcohol and recreational drug use. [facility] Past Medical History Medical History Injury of right elbow Narcotic bowel syndrome Overflow diarrhea Therapeutic opioid-induced constipation (OIC) Surgical History Surgical History History of cataract surgery Family History Family History Father Family history of cardiovascular disease Cerebrovascular accident Family history of malignant neoplasm Grandparent Family history of cardiovascular disease Family history of malignant neoplasm Mother Family history of malignant neoplasm Son Diabetes mellitus Social History Social History Social History: 02/03/24 very confident with medical forms 05/16/24 [address] [facility] Smoking status: Never smoker Alcohol intake: never Substance use: never Substance use type: does not use Do You Feel Safe in your Home?: Yes Lack of Transportation: No Lack of Food: Never True Current Housing: I Have Housing Concerned About Future Housing: No Difficulty Paying Gas/Electric Bills: No Difficulty Paying for Meds: No Currently Unemployed: No Education: High School Diploma/GED Difficulty w/ Childcare or Family Care: No Living arrangements: with family Occupation/Education: occupation 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 [place] Gender identity (if verbalized by the patient): Female Spiritual care concerns: No Agree to blood products: Yes Medications Home Medications ?Medication ?Instructions ?Recorded ?Confirmed ?Type methadone 5 mg tablet 5 mg PO BID 10/01/21 07/04/24 History Calcium with Vitamin D BYMOUTH 03/30/23 07/04/24 History levothyroxine 112 mcg tablet 112 mcg PO DAILY #90 tabs 03/27/24 07/04/24 Rx escitalopram oxalate 20 mg tablet 20 mg PO DAILY #90 tabs 06/07/24 07/04/24 Rx quetiapine 50 mg tablet 50 mg PO DAILY #90 tabs 06/07/24 07/04/24 Rx meloxicam 15 mg tablet 15 mg PO DAILY 08/09/24 History metoprolol succinate 25 mg 25 mg PO BID #30 tabs 08/09/24 Rx tablet,extended release 24 hr tizanidine 4 mg capsule 4 mg PO BID 08/09/24 History Sleep Procedure A full night ASV Titration using the Athersys multi-channel system recorded the standard physiologic parameters including EEG, EOG, submentalis EMG, anterior tibialis EMG, EKG, body position, nasal and oral airflow using nasal pressure sensor and thermistor.? Respiratory parameters of chest and abdominal movements were recorded with Respiratory Inductance Plethysmography belts. Oxygen saturation was recorded by pulse oximetry. Video monitoring was also performed. Sleep stages, periodic limb movements, and EEG arousals were scored in 30 second epochs according to the criteria of the AASM Scoring Manual. The Apnea-Hypopnea Index was calculated using CMS guidelines for definition of hypopnea with 4% O2 desaturations while scoring respiratory events. Sleep Architecture The total recording time was 459.6 minutes.? The total sleep time was 361.0 minutes. Sleep latency was 48.8 minutes. REM latency was 263.0 minutes. Sleep efficiency was 78.5%. The patient had 24 awakenings for an awakening index of 4.0. Wake after Sleep Onset time was 50.0 minutes. The patient spent 53.0 minutes, 14.7% of total sleep time in Stage N1. The patient spent 237.5 minutes, 65.8% in Stage N2. The patient spent 40.0 minutes, 11.1% in Stage N3. The patient spent 30.5 minutes, 8.4% in Stage REM. Respiratory Analysis The patient had 1 hypopneas, 2 mixed apneas, and 1 central apnea for an overall Apnea Hypopnea Index of 0.7 events per hour. The REM Apnea Hypopnea Index was 0. The NREM Apnea Hypopnea Index was 0.7. The patient had a Central Apnea Hypopnea Index of 0.2. There was no evidence of Tiago-Hussein Respirations. The patient was started on ASV 09/15/14 and titrated to ASV 11/15/14 due to hypopneas. The patient developed more hypopneas when she moved into the supine position. On ASV 09/15/14, the patient spent 222 minutes in NREM and 0 minutes in REM with 1 mixed apnea and 8 hypopneas, resulting in an AHI of 2.4. On ASV 11/15/14, the patient spent 108.5 minutes in NREM and 30.5 minutes in REM with 1 central apnea, 1 mixed apnea and 16 hypopneas, resulting in an AHI of 7.8. The patient had a sleep effieincy of 73.9% on the first pressure setting and 87.7% on the final pressure setting. Arousals There were 84 total arousals for an arousal index of 14.0. There were 73 spontaneous arousals for an index of 12.1. ?There were 3 arousals due to respiratory events for an index of 0.5. There were 2 arousals due to periodic limb movements for an index of 0.3.? There were 6 arousals due to isolated limb movements for an index of 1.0. Periodic Limb Movements The patient had 26 isolated limb movements with an index of 4.3. The patient had 26 periodic limb movements with index of 4.3. Patient had a total of 52 limb movements with a total limb movement index of 8.6. Oximetry Data The patient had an average oxygen saturation of 90.4% in sleep with a minimum oxygen saturation of 85.0% and a maximum oxygen saturation of 94.0%. The patient had 6 oxygen desaturations that were 4% or greater resulting in an Oxygen Desaturation Index of 1.2.? The patient spent 20.6 minutes, 4.5% of total sleep time with an oxygen saturation below 88%. Snoring Profile Mid snoring was present intermittently throughout the study. Cardiac Profile The EKG showed normal sinus rhythm with frequent PVCs. The patient had an average pulse rate of 61.2 bpm with a minimum pulse rate of 50.0 bpm and a maximum pulse rate of 74.0 bpm. ? EEG Profile No signs of seizure activity seen. Assessment and Plan Assessment and Plan (1) Treatment-emergent central sleep apnea: Code(s): G47.39 - Other sleep apnea Status: Acute Assessment and Plan: The patient was started on ASV 5/3/15 and titrated to ASV 7/3/15 due to hypopneas. The patient's sleep apnea resolved on the final pressure setting while she was in the lateral position. Her residual AHI was elevated on the final pressure setting because she spent more time in the supine position, which is when she developed more hypopneas. I recommend that the patient be prescribed ASV 7/3/15 cm H2O (EPEP, Min PS, Max PS), size small Resmed N30 mask, CPAP filters/tubing and heated humidity. I also recommend that the patient try to sleep in the lateral position most of the night, if possible. This can be achieved by placing pillows behind her back to prevent her from rolling over. This should be used with all episodes of sleep.? Compliance should be reviewed within 31-90 days of starting therapy for usage greater than 4 hours per night greater than 70% of the nights. The patient should be asked about symptoms such as?excessive daytime sleepiness, quality of sleep, decreased nocturia, increased?mental functioning such as memory, mood, and concentration. Data The data obtained during this sleep study is adequate for interpretation. Certification This sleep study has been reviewed by a board certified sleep medicine physician.
[2024-08-13 11:37] VITALS: BMI 27.7
== END 2024-07-20 06:24 | disposition home or self-care (01) ==
LOC: ANHCSM 14:25
PROVIDERS: PCP Nurse Practitioner Family; Visit Provider Nurse Practitioner Family
DX: G47.39 Other sleep apnea (principal)
CPT/HCPCS: 95811

== ENCOUNTER 2024-10-12 08:12 | Outpatient (CLI) | payer MEDICARE, SELFPAY ==
--- OUTSIDE RECORDS SUMMARY | 2024-10-12 08:18 | XMS_ITS | Clinical Summary ---
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 Gender Identity Not on file Sexual [...] 10:37 AM CDT Height 161.3 cm (5' 3.5) 08/27/2014 10 :37 AM CDT Body Mass Index 30.16 08/27/2014 10:37 AM CDT Plan of Treatment Not on file Medical Devices Implanted Type Area Cloth Picker Device Identifier Shelf Expiration Date Model / Serial / Lot Spinal Cord Stimulator- Implanted: (Quantity not on file) Spinal Cord Stimulator Lumbar-Sa cral Spine [id number] / [id number] / Insurance MEDICARE [facility] [address] [facility] Care Teams Shaping Machine Operator Relationship Specialty Start Date End Date Roslyn Covington DO [address] [place] [id number] PCP - General 07/27/17
--- OUTSIDE RECORDS SUMMARY | 2024-10-12 08:18 | XMS_ITS | Referral Summary ---
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
--- OUTSIDE RECORDS SUMMARY | 2024-10-12 08:18 | XMS_ITS | Clinical Summary ---
Author Organization [facility] Address [address] [address] Care Team Providers Care Jewelry Casting Model Maker Apprentice Name Role Phone Adria Roslyn Primary Care Provider [phone] Source Comments [facility],non-owned Affiliates and Associated Physician Practices is amultiple site organization consisting of ambulatory clinics and hospital sitesin [place], [place] and [place]. This disclosure is being madepursuant to the Care Everywhere program and may not contain all information available regarding this patient. Last updated 18.[facility] Allergies Active Allergy Reactions Criticality Noted Date [...] document. Alwaysverify current medications with the patient. 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,Hash imoto's thyroiditis TAKE 1 TABLET BY MOUTH DAILY BEFORE BREAKFAST FOR UNDERACTIVE THYROID 90 tablet 3 3 Active Active Problems Problem Noted Date Diagnosed Date Colon polyps 04/03/2013 Anxiety state 06/23/2010 Chest pain 06/16/2009 Enthesopathy 09/20/2008 Thyroiditis 09/20/2008 Neurasthenia 09/11/2008 Bile duct stricture 09/09/2008 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 Gender Identity Not on file Sexual Orientation Not on file Last Filed Vital Signs Vital Sign Reading Time Taken Comments Blood Pressure 128/70 05/20/2022 4:10 PM CARPENTER REPAIRER Pulse 72 05/20/2022 4:10 PM CARPENTER REPAIRER Temperature 36.2 C (97.1 F) 05/20/2022 4:10 PM CARPENTER REPAIRER Respiratory Rate 18 05/20/2022 4:10 PM CARPENTER REPAIRER Oxygen Saturation 93% 05/20/2022 4:10 PM CARPENTER REPAIRER Inhaled Oxygen Concentration - - Weight 79.6 kg (175 lb 6.4 oz) 05/20/2022 4:10 P M CARPENTER REPAIRER Height 161.3 cm (5' 3.5) 05/20/2022 4:10 PM CARPENTER REPAIRER Body Mass Index 30.58 05/20/2022 4:10 PM CARPENTER REPAIRER Plan of Treatment Health Maintenance Due Date [...] VACCINE (3 - season) 2024 07/16/2020, 06/18/2020 DEPRESSION SCREENING 05/16/2024 INFLUENZA VACCINE (Season Ended) 2025 04/07/2022, 02/11/2020, 04/16/2019, Additional history exists HEPATITIS B VACCINE Aged Out No longe r eligible based on patient's age to complete this topic HIB VACCINE Aged Out No longer eligi ble based on patient's age to complete this topic HPV VACCINE Aged Out No longer eligi ble based on patient's age to complete this topic MENINGOCOCCAL (Group B) VACCINE SHARED DECISION-MAKING Aged Out No longer eligible based on patient's age to complete this topic MENINGOCOCCAL GROUPS A/C/Y/W VACCINE Aged Out No longer eligible based on patient's age to complete this topic Insurance MEDICARE [facility] MEDICARE Member Subscriber Plan / Payer (Ef fective for All Dates) Name:Naya Barrett Member ID:[id number] Relation to Subscriber:Self Name:Naya Barrett Subscriber ID:[id number] Payer ID:Not on file Group ID:Not on file Type:Medicare Address: [place] [id number] Member Subscriber Plan / Payer (Ef fective for All Dates) Name:Naya Barrett E Member ID:[id number] Relation to Subscriber:Self Name:Lizette Barrettecca Irving Subscriber ID:[id number] Payer ID:Not on file Group ID:Not on file Type:Medicare Address: [place] [phone] Member Subscriber Plan / Payer (Ef fective for All Dates) Name:Naya Barrett E Member ID:[id number] Relation to Subscriber:Self Name:[place] Subscriber ID:[id number] Payer ID:Not on file Group ID:Not on file Type:Medicare Address: [place] [id number] Care Teams Jewelry Casting Model Maker Apprentice Relationship Specialty Start Date End Date Roslyn Covington DO [address] [place] [phone] PCP - General Family Medicine 01/17/20
--- OUTSIDE RECORDS SUMMARY | 2024-10-12 08:19 | XMS_ITS | Encounter Summary ---
Author Organization [facility] Address 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
--- OUTSIDE RECORDS SUMMARY | 2024-10-12 08:19 | XMS_ITS | Encounter Summary ---
Author Organization [facility] Address [address] [place] [address] Care Team Providers Care Continuous Process Tanner Rotary Drum Name Role Phone Unavailable Primary Care Provider [...] on file Legal Sex Female 5:04 AM NAVAL ARCHITECT Gender Identity Not on file Sexual Orientation Not on file documented as of this encounter Plan of Treatment Not on file documented as of this encounter Visit Diagnoses Diagnosis Sprain of neck- Primary documented in this encounter
--- OUTSIDE RECORDS SUMMARY | 2024-10-12 08:19 | XMS_ITS ---
Author Organization [facility] Address [address] [place] [address] [address] [place] [address] Care Team Providers Care Marketing Systems Analyst Name Role Phone Kirstin Hunter [phone] REASON FOR VISIT meds Encounters Encounter Location Date Provider Diagnosis [facility] [address] [place] [address] 10/09/2024 Kirstin Hunter Plan Of Treatment No Information Progress Notes * Julia BARRETTDOB: (78 yo F)Acc No.[id number]:10/09/2024 Progress Notes Patient: Lizette KEENEecca Appointment Provider: Luis Hunter NP :1945 A ge:78 Y S ex:Female Date:10/09/2024 Address:[address] [place], [place] [id number] Subjective: * Chief Complaints: * 1 . Meds. * Medical History: Objective: * Vitals: Assessment: Plan: * Treatment: * Billing Information: * Visit Code: * Procedure Codes: * Electronic signature of Bryson Hunter DNP/SHAHRZAD on 10/12/2024 at 08:18 AM CDT Sign off status: Pending * Appointment Provider: Luis Hunter NP Date: 10/09/2024 Generated for Printing/Faxing/eTransmitting on: 10/12/2024 08:18 AM CDT
--- OUTSIDE RECORDS SUMMARY | 2024-10-12 08:19 | XMS_ITS | Encounter Summary ---
Author Organization [facility] Address [address] [place] [address] Care Team Providers Care Credit Advisor Name Role Phone Unavailable Primary Care Provider Unavailabl e Encounter Details Date Type Department Care Team (Latest Contact Info) Description 03/18/1998 Outpatient Historical HIS CHRONIC PAIN Cheng Garcia MD [address] [place] [address] Myalgia and myositis, unspecified (Primary Dx) Social History Tobacco Use Types Packs/Day Years Used Date Smoking Tobacco: Never Assessed Comments Unknown Sex and Gender Information Value Date Recorded Sex Assigned at Not on file Legal Sex Female 5:04 AM CALL OUT CLERK Gender Identity Not on file Sexual Orientation Not on file documented as of this encounter Plan of Treatment Not on file documented as of this encounter Visit Diagnoses Diagnosis Myalgia and myositis, unspecified- Primary Mylagia and myositis, unspecified documented in this encounter
--- OUTSIDE RECORDS SUMMARY | 2024-10-12 08:19 | XMS_ITS | Clinical Summary ---
Author Organization [facility] Address [address] [place] [address] Phone Care Team Providers Care Shop Assistant Name Role Phone Unavailable Primary Care Provider [...] needed. Active fluticasone propionate (FLONASE) 50 mcg/spray [place], Suspension nasal inhaler Administer 2 Sprays in each nostril daily. Active diazePAM (VALIUM) 5 mg tabletIndications :Spinal stenosis in cervical region,Cervical myelopathy with cervical radiculopathy (CMS/HCC) Take 1 Tablet (5 mg) by mouth every 8 hours as needed for Spasm. 60 Tablet 05/04/2024 3:16 PM [employer] 4 Active docusate sodium (COLACE) 100 mg capsule Take 1 Capsule (100 mg) by mouth 2 times daily as needed for Constipation. 30 Capsule 05/04/2024 3:16 PM [employer] 4 Active HYDROcodone-aceta minophen (NORCO) 7.5-325 mg TabletIndications :Spinal stenosis in cervical region,Cervical myelopathy with cervical radiculopathy (CMS/HCC) Take 1-2 Tablets by mouth 1 time daily as needed for Break-Through Pain. Max Daily Amount: 2 Tablets 40 Tablet 05/04/2024 3:16 PM [employer] 4 Active ondansetron (ZOFRAN ODT) 4 mg Tablet, Rapid Dissolve Dissolve 1 tablet on top of tongue, then swallow with saliva every 6 hours as needed for Nausea/Vomiting . 30 Tablet 05/04/2024 3:16 PM [employer] 4 Active naloxone (NARCAN) 4 mg/spray [place], Non-Aerosol EMERGENCY USE ONLY: Administer 1 spray [...] Encounters Date Type Department Care Team Description 10/05/2024 External Device Data [facility]STRACTION Provider, Abstract 10/04/2024 External Device Data [facility] Provider, Abstract 10/03/2024 External Device Data [facility] Provider, Abstract 10/03/2024 External Device Data [facility]CTION Provider, Abstract 10/02/2024 External Device Data [facility]STRACTION Provider, Abstract 09/25/2024 External Device Data [facility]STRACTION Provider, Abstract 08/28/2024 External Device Data [facility] Provider, Abstract 08/14/2024 External Device Data [facility] Provider, Abstract 08/14/2024 External Device Data [facility] Provider, Abstract 08/01/2024 External Device Data [facility]CTION Provider, Abstract 07/23/2024 External Device Data [facility]STRACTION Provider, Abstract from Last 3 Months Social History Tobacco [...] No 05/01/2024 Food Insecurity Answer Date Recorded Patient needs follow up regardin 09/11/2024 Transportation Needs Answer Date Record ed Patient needs follow up regardin 09/11/2024 Housing Stability Answer Date Recorded Social/Environmental Concerns No concerns Utility Needs Answer Date Recorded Patient needs follow up regardin 09/11/2024 Comments No Sex and Gender Information Value Date Recorded Sex Assigned at Not on file Legal Sex Female 5:04 AM [employer] Gender Identity Not on file Sexual Orientation Not on file Last Filed Vital Signs Vital Sign Reading Time Taken Comments Blood Pressure 107/51 05/04/2024 11:42 AM [employer] Pulse 67 05/03/2024 8:47 AM [employer] Temperature 36.9 C (98.4 F) 05/04/2024 11:42 AM [employer] Respiratory Rate 16 05/04/2024 11:42 AM [employer] Oxygen Saturation 93% 05/04/2024 3:29 PM [employer] Inhaled Oxygen Concentration - - Weight 83.6 kg (184 lb 6.4 oz) 05/01/2024 11:23 AM [employer] Height 160 cm (5' 3) 05/01/2024 11:23 AM [employer] Body Mass Index 32.66 05/01/2024 11:23 AM [employer] Plan of Treatment Health Maintenance Due Date [...] 5 season) 2024 07/16/2020, 06/18/2020 OSTEOPOROSIS SCREENING 03/23/2028 03/23/2023, 2022 Medical Devices Implanted Type Area Voltage Inspector Device Identifier Shelf Expiration Date Model / Serial / Lot Unid Exp Ti Pavel 4up L Implanted:Qty : 2 on 05/01/2024 by Dorian Arana MD at [facility] Pavel N/A: Spine Cervical Posterior [id number] / / [id number] Description:1X ADD LG Set Screw Infinity Oc [id number] - [id number] Implanted:Qty : 10 on 05/01/2024 by Dorian Arana MD at [facility] N/A: Spine Cervical Posterior [employer] [id number] / / [place] [address] 70 3 STERILIZED [id number] Screw Infinity 3.5x14mm Mas [id number] - [id number] Implanted:Qty : 1 on 05/01/2024 by Dorian Arana MD at [facility] Screw N/A: Spine Cervical Posterior [employer] [id number] / / [place] [id number] 70 3 STERILIZED [id number] Screw Infinity 3.5x16mm Mas [id number] - [id number] Implanted:Qty : 7 on 05/01/2024 by Dorian Arana MD at [facility] N/A: Spine Cervical Posterior [employer] [id number] / / [place] [address] 70 3 STERILIZED [id number] Screw Infinity 3.5x22mm [facility] [id number] - [id number] Implanted:Qty : 2 on 05/01/2024 by Dorian Arana MD at [facility] Screw N/A: Spine Cervical Posterior [employer] [id number] / / [place] [id number] 70 3 STERILIZED [id number] [employer]f 2.5x10cm [id number] - [id number] Implanted:Qty : 1 on 05/01/2024 by Dorian Arana MD at [facility] Tissue N/A: Spine Cervical Posterior [employer] 06/16/2026 [id number] / [id number] / Description:[facility]#[id number] Insurance MEDICARE PART A AND B [facility] [id number] Advance Directives For more information, please contact: [phone] * Full Code (Latest Code Status on File) Date Activated Date Inactivated Comments 05/02/2024 9:28 AM 05/04/2024 6:40 PM
--- OUTSIDE RECORDS SUMMARY | 2024-10-12 08:19 | XMS_ITS | Encounter Summary ---
Author Organization [facility] Address [address] [place] [address] Care Team Providers Care Pharm Spec Name Role Phone Unavailable Primary Care Provider Unavailabl e Encounter Details Date Type Department Care Team (Latest Contact Info) Description 08/10/1999 Outpatient Historical HIS MIRTA Hutchinson, Rylan Fernandez MD [address] [facility] [address] [place] [address] Major depressive disorder, recurrent episode, unspecified (Primary Dx) Social History Tobacco Use Types Packs/Day Years Used Date Smoking Tobacco: Never Assessed Comments Unknown Sex and Gender Information Value Date Recorded Sex Assigned at Not on file Legal Sex Female 5:04 AM GI ASST Gender Identity Not on file Sexual Orientation Not on file documented as of this encounter Plan of Treatment Not on file documented as of this encounter Visit Diagnoses Diagnosis Major depressive disorder, recurrent episode, unspecified- Primary documented in this encounter
--- OUTSIDE RECORDS SUMMARY | 2024-10-12 08:19 | XMS_ITS ---
Author Organization [facility] Address [address] [place] [address] [address] [place] [address] Care Team Providers Care Feather Maker Name Role Phone Zaida Hook Unavailable [phone] Allergies Allergen (clinical drug ingredient) Drug/Non Drug Allergy documented on EMR Reaction Allergy Type Onset Date Status hydrocodone Hydrocodone Unknown Drug Allergy Act joselin Substance with sulfonamide structure and antibacterial mechanism of action (substance) Sulfa Antibiotics Unknown Drug Allergy Active REASON FOR VISIT CT scan results, Patient comes to the office to review her CT scan. She still has clumsiness andsome right leg pain. Medications Medication SIG (Take, Route, Frequency, Duration) Notes Start Date End Date Status Lexapro 20 MG 1 tablet Orally Once a day for 30 day(s) 12/13/2023 Active SEROquel 50 MG 1 tablet at bedtime Orally Once a day for 30 day(s) 12/13/2023 Active QUEtiapine Fumarate 50 MG Oral for 90 Days Active Escitalopram Oxalate 20 MG Oral for 90 Days Active Levothyroxine Sodium 112 MCG Oral for 90 Days Active Naloxone HCl 0.4 MG/ML as directed Injection 12/13/2023 Active Methadone HCl 5 MG 1 tablet Orally three time a day for 30 days Do not fill until 10/14/24 10/04/2024 Active tiZANidine HCl 4 MG 1 tablet Oral twice a day for 30 days Active Metoprolol Succinate ER 25 MG 1 tablet Orally Once a day Active Problems Problem Type SNOMED Code ICD Code Onset Dates Problem Status W/U Status Risk Notes Problem Thoracic spondylosis (821787162) Thoracic spondylosis (M47.814) Active confirmed Vital Signs Blood pressure systolic 119 mm Hg 10/10/19 25 Blood pressure diastolic 76 mm Hg 025 Heart Rate 64 /min 10/09/2024 Height 5ft 3.5 in in 10/09/2024 Weight 165 lbs 10/09/2024 BMI 28.77 kg/m2 10/09/2024 Height-cm 161.29 cm 10/09/2024 Weight-kg 74.84 kg 10/09/2024 Encounters Encounter Location Date Provider Diagnosis [facility] [address] [place] [address] 10/09/2024 Zaida Hook Cervical radiculopat hy M54.12 ; Cervical pain M54.2 ; Cardiac arrhythmia I49.9 ; Hypothyroidism E03.9 ; Myelopathy, spondylogenic, cervical M47.12 ; Disease of spinal cord, unspecified G95.9 ; Radiculopathy, cervical region M54.12 ; Generalized osteoarthritis M15.9 ; Lumbar radiculopathy M54.16 ; Thoracic radiculopathy M54.14 ; Cervical vertebral fusion M43.22 ; S/P lumbar fusion Z98.1 and Thoracic spondylosis M47.814 Assessments Encounter Date Diagnosis (ICD Code) Assessment Notes Treatment Notes Treatment Clinical Notes Section Notes 10/09/2024 Cervical radiculopathy (ICD-10 - M54.12) 10/09/2024 Cervical pain (ICD-10 - M54.2) 10/09/2024 Cardiac arrhythmia (ICD-10 - I49.9) 10/09/2024 Hypothyroidism (ICD-10 - E03.9) ICD F32.A-Depressi on: 10/09/2024 Myelopathy, spondylogenic, cervical (ICD-10 - M47.12) 10/09/2024 Disease of spinal cord, unspecified (ICD-10 - G95.9) 10/09/2024 Radiculopathy, cervical region (ICD-10 - M54.12) 10/09/2024 Generalized osteoarthritis (ICD-10 - M15.9) 10/09/2024 Lumbar radiculopathy (ICD-10 - M54.16) 10/09/2024 Thoracic radiculopathy (ICD-10 - M54.14) 10/09/2024 Cervical vertebral fusion (ICD-10 - M43.22) 10/09/2024 S/P lumbar fusion (ICD-10 - Z98.1) 10/09/2024 Thoracic spondylosis (ICD-10 - M47.814) 10/09/2024 Other Body Mass Index : Care Instructions material was published, Body Mass Index: Care Instructions material was published Plan Of Treatment Treatment Notes Assessment Notes Other Body Mass Index: Car e Instructions material was published, Body Mass Index: Care Instructions material was published Pending Test Test Name Order Date CT Lumbar WO 10/09/2024 MR Thoracic WO 10/09/2024 Next Appt Details Follow Up: Follow-up after M RI scan of the thoracic spine and CT scan of the lumbar spine, Reason: Progress Notes * Julia BARRETTDOB: [birth year] (78 yo F)Acc No.[id number]:10/09/2024 Progress Notes Patient: Melo Julia GAY Provider: Isamar Hook MD :1945 A ge:78 Y S ex:Female Date:10/09/2024 Address:[address] [place], [place] [id number] Subjective: * Chief Complaints: * [address] scan results. 2. Patient comes to the office to review her CT scan. She still has clumsiness and some right leg pain.. * HPI: * Established Patient: Established Patient Questionnaire: 1 . Are you currently taking a Blood Thinner Medication? N o 2 . Do you have an allergy to I.V. Contrast or Shellfish? N o 3 . List any changes to medical history. (eg; Falls, Test, Scans, Blood Work, and Hospitalizations) S can 4 . Have you been exposed to anyone with COVID in the last 2 weeks? N o 5 . Have you been exposed to anyone with the FLU in the last 72 hours? N o 6 . What is your Pain Level today? (1-10, Scroll and select one) 3 7 . Where is your pain located? N felix,Left Shoulder,Right Shoulder 8 . After your last visit, what Percentage of improvement did you experience? 0 9 . Are you doing Physical Therapy, Chiropractic, or Massage Therapy? Y es 1 0. Are you doing an at home Exercise Program? Y es 1 1. What activities or positions increase your Pain? (Scroll to select one or multiple) C hores 1 2. What activities or positions decrease your Pain? (Scroll to select one or multiple) L eloisa down 1 3. How would you describe your Pain? (Scroll to select one or multiple) A swetha,Burning 1 4. Are you having difficulty sleeping? Y es 1 5. When was the last time you had your blood drawn? (Please enter your best estimate) D ecember 2023 1 6. When was your last Mammogram? (Please put N/A if you are male, for Females please put the best Estimate or Never.) 2 024 1 7. When was your last Colonoscopy? (Please put the best Estimate or Never.) 2 024 1 8. Do you need any refills on your medications today? N o 1 9. Please list ALL changes to Medications or Allergies? N one 2 0. Are you Diabetic? N o 2 1. Do you suffer from Constipation? Y es * Pain Management:: Patient had originally had a fall while she was hiking. Ultimately she had posterior cervical spine fusion and decompression. CT of the cervical spine date of service 10/04/2024 shows that she is well decompressed but she does have some severe left stenosis at C2-3 and moderate to severe stenosis at C4-5. Patient states that she does feel some tingling and numbness in her arms. At this point on physical examination she is hyperreflexic at both ankles and both knees. Especially because of the history of the trauma she needs to have an MRI of the thoracic spine and a CT scan of the lumbar spine. Many years ago the patient had lumbar spine fusion with instrumentation. Her gait she does not have any vertigo she just feels unstable on the right leg. * ROS: G eneral/Constitutional: Denies Change appetite. Denies Chills. Denies Fatigue. Denies Fever. Denies Lightheadedness. ENT: Denies Tinnitus. Denies Dysphagia. Ophthalmologic: Denies Blurred vision. * Medical History: D epression, Anxiety, Hypothyroidism. * Surgical History: c ataract surgery both eyes 11/03 , extensive cervical and lumbar surgery after fall , posterior cervical decompression- Dr. Arana 04/2024. * Family History: F ather: , diagnosed with Heart disease. M other: . 1 brother(s) , 1 sister(s) . 2 son(s) , 2 daughter(s) . . Both mother and father have history of cancer. * Social History: * Established Patient: S [...] have you been concerned that people will manager safe you for taking pain medication? 0 - [...] again in a few minutes: Stefano Crouch, [address] [place] [address]. Max 4 attempts R ead to the [...] If a general answer is given, eg war, lot of rain, ask for details. Only specific answer scores). C orrect 6 . What was the name and address I asked you to remember? First Name = Stefano Kian orrect 6 . What was the name and address I asked you to remember? Last Name = Miko C orrect 6 . What was the name and address I asked you to remember? Street Number = [address] orrect 6 . What was the name and address I asked you to remember? Street Name = [address] orrect 6 . What was the name and address I asked you to remember? City = [facility] orrect T otal Score (out of 9) [...] tablet Orally Once a day , Taking QUEtiapine Fumarate 50 MG Tablet Oral , Taking Escitalopram Oxalate 20 MG Tablet Oral , Taking Levothyroxine Sodium 112 MCG Tablet Oral , Taking Lexapro 20 MG Tablet 1 tablet Orally Once a day , Taking SEROquel 50 MG Tablet 1 tablet at bedtime Orally Once a day , Taking Naloxone HCl 0.4 MG/ML Solution as directed Injection , Taking Methadone HCl 5 MG Tablet 1 tablet Orally three time a day , Notes to Pharmacist: Do not fill until 10/14/24, Taking tiZANidine HCl 4 MG Tablet 1 tablet Oral twice a day , Medication List reviewed and reconciled with the patient * Allergies: S ulfa Antibiotics, Hydrocodone. Objective: * Vitals: H t: 5ft 3.5 in, Wt: 165 lbs, BP: 119/76 mm Hg, Pain scale: 3 1-10, HR: 64 /min, BMI: 28.77 Index, Ht-cm: 161.29 cm, [...] G eneralized osteoarthritis - M15.9 9 . L umbar radiculopathy - M54.16 1 0. T horacic radiculopathy - M54.14 1 1. Cervical vertebral fusion - M43.22 1 2. S /P lumbar fusion - Z98.1 ? 1 3. T horacic spondylosis - M47.814 Plan: * Treatment: 2.?Thoracic radiculopathy?Imaging: MR Thoracic WO* 3.?Others? Notes: Body Mass Index: Care Instructions material was published, Body Mass Index: Care Instructions material was published?? * Follow Up: F ollow-up after MRI scan of the thoracic spine and CT scan of the lumbar spine * Billing Information: * Visit Code: * Procedure Codes: * Electronic signature of Claire Hook MD on 10/12/2024 at 08:19 AM CDT Sign off status: Pending * Provider: Isamar Hook MD Date: 0 10/09/2024 Generated for Eva murray/Joseph/Jeremiassmitting on: 0 10/12/2024 08:19 AM CDT History and Physical Notes * HPI (History of Present Illness) Category Sub-Category Detail Notes Category Not es *Pain Management: Patient had originally had a fall while she was hiking. Ultimately she had posterior cervical spine fusion and decompression. CT of the cervical spine date of service 10/04/2024 shows that she is well decompressed but she does have some severe left stenosis at C2-3 and moderate to severe stenosis at C4-5. Patient states that she does feel some tingling and numbness in her arms. At this point on physical examination she is hyperreflexic at both ankles and both knees. Especially because of the history of the trauma she needs to have an MRI of the thoracic spine and a CT scan of the lumbar spine. Many years ago the patient had lumbar spine fusion with instrumentation. Her gait she does not have any vertigo she just feels unstable on the right leg. *Established Patient Established Patient Questionnaire: 1. Are you currently taking a Blood Thinner Medication?: No 2. Do you have an allergy to I.V. Contra st or Shellfish?: No 3. List any changes to medic al history. (eg; Falls, Test, Scans, Blood Work, and Hospitalizations): Scan 4. Have you been exposed to anyone with COVID in the last 2 weeks?: No 5. Have you been exposed to anyone with the FLU in the last 72 hours?: No 6. What is your Pain Level today? (1-10, Scroll and select one): 3 7. Where is your pain located?: Neck,Lef t Shoulder,Right Shoulder 8. After your last visit, wh at Percentage of improvement did you experience?: 0 9. Are you doing Physical Th erapy, Chiropractic, or Massage Therapy?: Yes 10. Are you doing an at home Exercise Pr ogram?: Yes 11. What activities or posit ions increase your Pain? (Scroll to select one or multiple): Chores 12. What activities or posit ions decrease your Pain? (Scroll to select one or multiple): Lying down 13. How would you describe y our Pain? (Scroll to select one or multiple): Aching,Burning 14. Are you having difficulty sleeping?: Yes 15. When was the last time y ou had your blood drawn? (Please enter your best estimate): April 2024 16. When was your last Mammo gram? (Please put N/A if you are male, for Females please put the best Estimate or Never.): 2023 17. When was your last Colon oscopy? (Please put the best Estimate or Never.): 2023 18. Do you need any refills on your medi cations today?: No 19. Please list ALL changes to Medicatio ns or Allergies?: None 20. Are you Diabetic?: No 21. Do you suffer from Constipation?: Ye s
--- OUTSIDE RECORDS SUMMARY | 2024-10-12 08:19 | XMS_ITS | Patient Health Record ---
Author Organization [facility] Address [address] [place] [address] Care Team Providers Care Cook [employer] Name Role Phone Zaida Hook Unavailable [phone] Kirstin Hunter Unavailable [phone] Miladys Ward Unavailable [phone] Allergies Allergen (clinical drug ingredient) Drug/Non Drug Allergy documented on EMR Reaction Allergy Type Onset Date Status hydrocodone Hydrocodone Unknown Drug Allergy Act joselin Substance with sulfonamide structure and antibacterial mechanism of action (substance) Sulfa Antibiotics Unknown Drug Allergy Active Results Component Value Reference Range Notes [facility] Profil e (Not yet reviewed by provider) Interpretation: Performing Lab:[facility] (CLIA#: [id number]), [address] [place] [address], Director - Carrol Pérez Notes/Report: These tests were developed and their performance characteristics determined by [facility]. They have not been cleared or approved by the US Food and Drug Administration. Certifying Irrigator Overhead: Shari Loyola (Remote [phone]) Analyzed at [facility] (CLIA#: [id number]) - [address] [place] [address] - Property Preservation Specialist: Carrol Lopez Cital+Escital Ur CMP 3007 >=50 ng/mL COMPLIA NT: Test result is consistent and expected with prescribed drug. Methadone Ur CMP 2898 >=200 ng/mL COMPLIANT: Test result is consistent and expected with prescribed drug. Quetiapine Ur CMP 851 >=10 ng/mL COMPLIANT: Test result is consistent and expected with prescribed drug. Tizanidine Ur CMP <5 >=5 ng/mL PRN - NOT PRESENT: Test result is consistent and expected with prescribed drug. BioDetect EXPECTED Test result is consistent with routinely analyzed human urine. 6MAM Ur Ql Cfm <10 >=10 ng/mL NONE DETECTED Amphetamines Ur Ql Cfm <100 >=100 ng/mL NONE DETECTED Benzodiaz Ur Ql Cfm <50 >=50 ng/mL NONE DET ECTED Buprenorphine Ur Ql Cfm <1 >=1 ng/mL NONE DETECTED BZE Ur Ql Cfm <50 >=50 ng/mL NONE DETECTED Fentanyl+Norfentanyl Ur Ql Cfm <5 >=5 ng/mL NONE DETECTED Gabapentin Ur Ql <5 >=5 mcg/mL NONE DETECT ED Carisoprodol+Meprob Ur Ql Scn <200 >=200 ng/mL NONE DETECTED Methadone Ur Ql Cfm >=200 >=200 ng/mL POSITIVE Methadone Ur Cfm-mCnc 1881 >=200 ng/mL POSITI VE EDDP Ur Cfm-mCnc 1017 >=200 ng/mL POSITIVE Meperidine Ur Ql Cfm <100 >=100 ng/mL NONE DE TECTED Opiates Ur Ql Cfm <100 >=100 ng/mL NONE DETEC JACI Pregabalin(Lyrica) Ur Ql Cfm <5 >=5 mcg/mL NONE DETECTED Tramadol Ur Ql Cfm <100 >=100 ng/mL NONE DETE CTED Creat Ur-mCnc 36.3 20 - 370 mg/dL NORMAL Creatinine and pH are performed for specimen validity and not diagnostic purposes. pH Ur 5.98 4.5 - 9.0 NORMAL Creatinine and pH are performed for specimen validity and not diagnostic purposes. Alcohol Metabolites Ur Ql Cfm <200 >=200 ng/mL NONE DETECTED Ethyl sulfate Ur Cfm-mCnc <200 >=200 ng/mL NO NE DETECTED Tizanidine Ur Ql Cfm <25 >=25 ng/mL NONE DE TECTED Antipsychotics Ql Cfm >=1 >=1 ng/mL POSITI VE QUEtiapine Ur Cfm-mCnc 473 >=10 ng/mL POSIT JOSELIN Norquetiapine Ur Cfm-mCnc 356 >=10 ng/mL PO SITIVE 7OH-quetiapine Ur Cfm-mCnc 22 >=10 ng/mL P OSITIVE SSRI Profile Ur Ql Cfm >=50 >=50 ng/mL POSIT JOSELIN Citalopram Ur Cfm-mCnc 1847 >=50 ng/mL POSIT JOSELIN Norcitalopram Ur-mCnc 1160 >=50 ng/mL POSITI VE Synthetic Stimulants Ur Ql Cfm <1 >=1 ng/mL NONE DETECTED BATTERY PARTS ASSEMBLER Not Otherwise Specified Ur Ql Cfm <1 >=1 ng/mL NONE DETECTED Synthetic Cannabinoids Ur Ql Cfm <1 >=1 ng/m L NONE DETECTED Hallucinogens/Dissociatives Ur Ql Cfm <1 >=1 ng/mL NONE DETECTED Customer Retention Representative Benzodiazepines Ur Ql Cfm <1 >=1 ng/mL NONE DETECTED Customer Retention Representative Opioids Ur Ql Cfm <1 >=1 ng/mL N ONE DETECTED THC Ur Ql Scn <20 >=20 ng/mL NONE DETECTED CT Cervical WO (Not yet revi ewed by provider) Interpretation: Performing Lab: Notes/Report: Original Report EXAM: CT CERVICAL SPINE W/O CONTRAST HISTORY: Neck pain. Severe dizziness and neck pain. TECHNIQUE: Computed tomography cervical spine performed without intravenous contrast with coronal and sagittal reconstructed images per standard protocol. The radiation exposure as measured by the dose length product (DLP) is 404mGy-cm. CT dose lowering technique was utilized. CONTRAST: None. COMPARISON: CT myelogram dated April 02, 2024. FINDINGS: There is straightening and reversal of the normal cervical lordosis with a gentle kyphosis centered on C4-C5. Postsurgical changes of anterior cervical fusion and discectomy C5 to C7 with an anterior buttress plate at C6-C7. There has also been a posterior fusion from C3 to C7 with bilateral lateral mass screws at C3, C4, C5, C6 and C7. Laminectomies have also been performed at C3-C4 and C4-C5 with resection of the spinous processes of C3 and C4 respectively. The postsurgical changes posteriorly, including the laminectomy and the posterior fusion, are new compared to the prior exam. Anteriorly, there is solid bridging bone across the disc space entirely at C5-C6 and C6-C7. There is no instrumentation loosening anteriorly. There is also bridging bone across portions of the disc space at C4-C5 without instrumentation. Posterior instrumentation is unremarkable with the exception of the left lateral mass screws of C7 slightly breaching the superior aspect of the pedicle of C7, seen best on the sagittal images. There is no evidence of instrumentation loosening. There does appear to be solid bridging bone bilaterally from C4 to C7 and on the right at C3-C4. There is moderate disc space narrowing at C3-C4 and moderate to severe narrowing at C7-T1. Axial images: C2-C3: No posterior disc abnormality. Mild right and moderate to severe left facet joint osteoarthritis. No spinal canal stenosis. Severe left foraminal stenosis. Right neuroforamen is within normal limits. C3-C4: Spinal canal is decompressed dorsally by the laminectomy. Mild right foraminal stenosis. Moderate left foraminal stenosis. C4-C5: No posterior disc abnormality. Spinal canal is decompressed dorsally by the laminectomy. Mild left and moderate to severe right foraminal stenosis. C5-6: Status post discectomy. Spinal canal is at the lower limits of normal. Moderate right and mild to moderate left foraminal stenosis. C6-C7: Status post discectomy. No spinal canal stenosis. Moderate right and left foraminal stenosis. C7-T1: Disc within normal limits. Bilateral facet joint osteoarthritis. No spinal canal stenosis. Moderate to severe right and moderate left foraminal stenosis. When comparison is made to the CT myelogram from April 02, 2024, the post surgical changes of posterior fusion and laminectomy are new, otherwise the degenerative changes appear similar. IMPRESSION: Interval posterior fusion C3 to C7 with laminectomies at C3-C4 and C4-C5 as described above. TW:sg Read by: Aram Lopez M.D. Reviewed and Electronically Signed by: Aram Lopez M.D. [facility] Profil e (Not yet reviewed by provider) Interpretation: Performing Lab:[facility] (CLIA#: [id number]), [address] [place] [address], Director - Carrol Pérez Notes/Report: These tests were developed and their performance characteristics determined by [facility]. They have not been cleared or approved by the US Food and Drug Administration. Certifying Irrigator Overhead: Xiomy Kulkarni (Remote [phone]) Analyzed at [facility] (CLIA#: [id number]) - [address] [place], [place] [address] - Property Preservation Specialist: Carrol Lopez Cital+Escital Ur CMP 1174 >=50 ng/mL COMPLIA NT: Test result is consistent and expected with prescribed drug. Quetiapine Ur CMP 113 >=10 ng/mL COMPLIANT: Test result is consistent and expected with prescribed drug. Tizanidine Ur CMP <5 >=5 ng/mL NON-COMPLI ANT: Test result indicates patient may not be taking drug prescribed. Naloxone Ur CMP <10 >=10 ng/mL NON-COMPLIAN T: Test result indicates patient may not be taking drug prescribed. Methadone Ur CMP 1004 >=200 ng/mL COMPLIANT: Test result is consistent and expected with prescribed drug. BioDetect EXPECTED Test result is consistent with routinely analyzed human urine. 6MAM Ur Ql Cfm <10 >=10 ng/mL NONE DETECTED Amphetamines Ur Ql Cfm <100 >=100 ng/mL NONE DETECTED Benzodiaz Ur Ql Cfm <50 >=50 ng/mL NONE DET ECTED Buprenorphine Ur Ql Cfm <1 >=1 ng/mL NONE DETECTED BZE Ur Ql Cfm <50 >=50 ng/mL NONE DETECTED Fentanyl+Norfentanyl Ur Ql Cfm <5 >=5 ng/mL NONE DETECTED Gabapentin Ur Ql <5 >=5 mcg/mL NONE DETECT ED Carisoprodol+Meprob Ur Ql Scn <200 >=200 ng/mL NONE DETECTED Methadone Ur Ql Cfm >=200 >=200 ng/mL POSITIVE Methadone Ur Cfm-mCnc 427 >=200 ng/mL POSITI VE EDDP Ur Cfm-mCnc 577 >=200 ng/mL POSITIVE Meperidine Ur Ql Cfm <100 >=100 ng/mL NONE DE TECTED Opiates Ur Ql Cfm <100 >=100 ng/mL NONE DETEC JACI Pregabalin(Lyrica) Ur Ql Cfm <5 >=5 mcg/mL NONE DETECTED Tramadol Ur Ql Cfm <100 >=100 ng/mL NONE DETE CTED Creat Ur-mCnc 32.6 20 - 370 mg/dL NORMAL Creatinine and pH are performed for specimen validity and not diagnostic purposes. pH Ur 7.10 4.5 - 9.0 NORMAL Creatinine and pH are performed for specimen validity and not diagnostic purposes. Alcohol Metabolites Ur Ql Cfm <200 >=200 ng/mL NONE DETECTED Ethyl sulfate Ur Cfm-mCnc <200 >=200 ng/mL NO NE DETECTED Tizanidine Ur Ql Cfm <25 >=25 ng/mL NONE DE TECTED Naloxone Ur Ql Cfm <10 >=10 ng/mL NONE DETE CTED Antipsychotics Ql Cfm >=1 >=1 ng/mL POSITI VE Norquetiapine Ur Cfm-mCnc 113 >=10 ng/mL PO SITIVE SSRI Profile Ur Ql Cfm >=50 >=50 ng/mL POSIT JOSELIN Citalopram Ur Cfm-mCnc 632 >=50 ng/mL POSIT JOSELIN Norcitalopram Ur-mCnc 542 >=50 ng/mL POSITI VE Synthetic Stimulants Ur Ql Cfm <1 >=1 ng/mL NONE DETECTED BATTERY PARTS ASSEMBLER Not Otherwise Specified Ur Ql Cfm <1 >=1 ng/mL NONE DETECTED Synthetic Cannabinoids Ur Ql Cfm <1 >=1 ng/m L NONE DETECTED Hallucinogens/Dissociatives Ur Ql Cfm <1 >=1 ng/mL NONE DETECTED Customer Retention Representative Benzodiazepines Ur Ql Cfm <1 >=1 ng/mL NONE DETECTED Customer Retention Representative Opioids Ur Ql Cfm <1 >=1 ng/mL N ONE DETECTED THC Ur Ql Scn <20 >=20 ng/mL NONE DETECTED Reason For Referral No Information Medications Medication SIG (Take, Route, Frequency, Duration) Notes Start Date End Date Status Lexapro 20 MG 1 tablet Orally Once a day for 30 day(s) 12/13/2023 Active SEROquel 50 MG 1 tablet at bedtime Orally Once a day for 30 day(s) 12/13/2023 Active Naloxone HCl 0.4 MG/ML as directed Injection 12/13/2023 Active Methadone HCl 5 MG 1 tablet Orally three time a day for 30 days Do not fill until 10/14/24 10/04/2024 Active tiZANidine HCl 4 MG 1 tablet Oral twice a day for 30 days Active Metoprolol Succinate ER 25 MG 1 tablet Orally Once a day Active QUEtiapine Fumarate 50 MG Oral for 90 Days Active Escitalopram Oxalate 20 MG Oral for 90 Days Active Levothyroxine Sodium 112 MCG Oral for 90 Days Active Problems Problem Type SNOMED Code ICD Code Onset Dates Problem Status W/U Status Risk Notes Problem Spinal cord disorder (37027572) Disease of spinal cord, unspecified (G95.9) Active confirmed Problem Cervical radiculopathy (93355325) Radiculopathy, cervical region (M54.12) Active confirmed Problem Thoracic spondylosis (175596789) Thoracic spondylosis (M47.814) Active confirmed Problem Lumbar radiculopathy (956159154) Lumbar radiculopathy (M54.16) Active confirmed Problem Cervical radiculopathy (63052590) Cervical radiculopathy (M54.12) Active confirmed Problem Hypothyroidism (67199245) Hypothyroidism (E03.9) Active confirmed ICD F32.A-D epressi on: Problem Myelopathy, spondylogenic, cervical (M47.12) Active confirmed Problem Thoracic radiculopathy (66768279) Thoracic radiculopathy (M54.14) Active confirmed Problem Cardiac arrhythmia (457789183) Cardiac arrhythmia (I49.9) Active confirmed Problem Cervical pain (78759262) Cervical pain (M54.2) Active confirmed Problem Generalized osteoarthritis (319561644) Generalized osteoarthritis (M15.9) Active confirmed Vital Signs Heart Rate 64 /min 10/09/2024 Height-cm 161.29 cm 10/09/2024 Blood pressure diastolic 76 mm Hg 10/09/2024 Weight-kg 74.84 kg 10/09/2024 Height 5ft 3.5 in in 10/09/2024 Blood pressure systolic 119 mm Hg 10/09/2024 Weight 165 lbs 10/09/2024 BMI 28.77 kg/m2 10/09/2024 Encounters Encounter Location Date Provider Diagnosis [facility] [address] [place] [address] [address] [place] [address] 10/17/2023 Kirstin Hunter [facility] [address] [place] [address] [address] [place] [address] 11/07/2023 Kirstin Hunter [facility] [address] [place] [address] [address] [place] [address] 11/10/2023 Zaida Hook [facility] [address] [place] [address] [address] [place] [address] 11/28/2023 Zaida Hook [facility] [address] [place] [address] [address] [place] [address] 11/28/2023 Kirstin Hunter [facility] [address] [place] [address] [address] [place] [address] 10/04/2024 Zaida Hook Cervical radiculopat hy M54.12 ; Cervical pain M54.2 ; Cardiac arrhythmia I49.9 ; Hypothyroidism E03.9 ; Myelopathy, spondylogenic, cervical M47.12 ; Disease of spinal cord, unspecified G95.9 ; Radiculopathy, cervical region M54.12 ; Generalized osteoarthritis M15.9 ; Cervical myelopathy G95.9 and Cervical vertebral fusion M43.22 [facility] [address] [place] [address] [address] [place] [address] 10/09/2024 Zaida Hook Cervical radiculopat hy M54.12 ; Cervical pain M54.2 ; Cardiac arrhythmia I49.9 ; Hypothyroidism E03.9 ; Myelopathy, spondylogenic, cervical M47.12 ; Disease of spinal cord, unspecified G95.9 ; Radiculopathy, cervical region M54.12 ; Generalized osteoarthritis M15.9 ; Lumbar radiculopathy M54.16 ; Thoracic radiculopathy M54.14 ; Cervical vertebral fusion M43.22 ; S/P lumbar fusion Z98.1 and Thoracic spondylosis M47.814 [facility] [address] [place] [address] [address] [place] [address] 12/13/2023 Zaida Hook Cervical radiculopat hy M54.12 [facility] [address] [place] [address] [address] [place] [address] 01/19/2024 Zaida Hook Cervical spinal stenosis M48.02 and COVID U07.1 [facility] [address] [place] [address] [address] [place] [address] 02/16/2024 Kirstin Hunter Cervical radiculopat hy M54.12 and 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 use of drug Z79.899 [facility] [address] [place] [address] [address] [place] [address] 03/13/2024 Kirstin Hunter Cervical radiculopat hy M54.12 ; Cervical pain M54.2 ; Shortness of breath R06.02 ; Dizziness and giddiness R42 ; Cardiac arrhythmia I49.9 and On jail drug therapy Z79.899 [facility] [address] [place] [address] [address] [place] [address] 03/29/2024 Zaidaiqra Hook Cervical radiculopat hy M54.12 ; Cervical pain M54.2 ; Cervical myelopathy G95.9 ; Cardiac arrhythmia I49.9 ; Status post cervical spinal fusion Z98.1 and Hypothyroidism E03.9 [facility] [address] [place] [address] [address] [place] [address] 04/24/2024 Zaida Hook Cervical radiculopat hy M54.12 ; Cervical pain M54.2 ; Cardiac arrhythmia I49.9 ; Hypothyroidism E03.9 ; Myelopathy, spondylogenic, cervical M47.12 and Screening for substance abuse Z13.89 [facility] [address] [place] [address] [address] [place] [address] 05/22/2024 Zaida Hook Radiculopathy, cervical region M54.12 ; Cervical vertebral fusion M43.22 ; Disease of spinal cord, unspecified G95.9 ; S/P cervical spinal fusion Z98.1 and Generalized osteoarthritis M15.9 [facility] [address] [place] [address] [address] [place] [address] 06/19/2024 Zaida Hook Cervical radiculopat hy M54.12 ; Cervical pain M54.2 ; Cardiac arrhythmia I49.9 ; Hypothyroidism E03.9 ; Myelopathy, spondylogenic, cervical M47.12 ; Disease of spinal cord, unspecified G95.9 ; Radiculopathy, cervical region M54.12 ; Generalized osteoarthritis M15.9 and Status post cervical spinal fusion Z98.1 [facility] [address] [place] [address] [address] [place] [address] 07/17/2024 Kirstin Hunter Cervical radiculopat hy M54.12 ; Cervical pain M54.2 ; Myelopathy, spondylogenic, cervical M47.12 ; Disease of spinal cord, unspecified G95.9 ; Radiculopathy, cervical region M54.12 ; Generalized osteoarthritis M15.9 and On jail drug therapy Z79.899 [facility] [address] [place] [address] 08/15/2024 Kirstin Hunter Cervical radiculopat hy M54.12 ; Cervical pain M54.2 ; Disease of spinal cord, unspecified G95.9 ; Radiculopathy, cervical region M54.12 ; Generalized osteoarthritis M15.9 and 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 use of drug Z79.899 [facility] [address] [place] [address] 09/12/2024 Kirstin Hunter Cervical radiculopat hy M54.12 ; Cervical pain M54.2 ; Cardiac arrhythmia I49.9 ; Hypothyroidism E03.9 ; Myelopathy, spondylogenic, cervical M47.12 ; Disease of spinal cord, unspecified G95.9 ; Radiculopathy, cervical region M54.12 and Generalized osteoarthritis M15.9 [facility] [address] [facility] [address] [place] [address] 12/14/2023 Zaida Hook [facility] [address] [place] [address] 01/19/2024 Zaidaiqra SeguraMiladys [facility] [address] [facility] [address] [place] [address] 02/16/2024 Zaidaiqra Hook [facility] [address] [facility] [address] [place] [address] 03/13/2024 Zaida Miladys [facility] [address] [place] [address] 04/24/2024 Zaida Miladys [facility] [address] [place] [address] 05/22/2024 Zaida Miladys [facility] [address] [place] [address] 06/19/2024 Zaida Miladys [facility] [address] [place] [address] 08/15/2024 Ward Hook [facility] [address] [place] [address] 09/12/2024 Ward Hook [facility] [address] [place] [address] 10/04/2024 Zaida Hook Cervical radiculopat hy M54.12 [facility] [address] [place] [address] 10/10/2024 Zaida Hook Thoracic spondylosis M47.814 Assessments Encounter Date Diagnosis (ICD Code) Assessment Notes Treatment Notes Treatment Clinical Notes Section Notes 02/16/2024 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 use of drug (ICD-10 - Z79.899) 02/16/2024 Cervical radiculopathy (ICD-10 - M54.12) 12/13/2023 Cervical radiculopathy (ICD-10 - M54.12) 01/19/2024 Cervical spinal stenosis (ICD-10 - M48.02) 03/13/2024 Cervical radiculopathy (ICD-10 - M54.12) Refill for controlled substance sent to supervising physician to be filled Referral surgical consult sent to Dr. Cohn per Dr. Zaida Hook. Continue home stretching and at home exercise program as toleratedFollow-u p in one month for med check, sooner if needed 03/13/2024 Cervical pain (ICD-10 - M54.2) 03/29/2024 Cervical radiculopathy (ICD-10 - M54.12) 04/24/2024 Cervical radiculopathy (ICD-10 - M54.12) 03/29/2024 Cervical pain (ICD-10 - M54.2) 04/24/2024 Cervical pain (ICD-10 - M54.2) 05/22/2024 Radiculopathy, cervical region (ICD-10 - M54.12) 06/19/2024 Cervical radiculopathy (ICD-10 - M54.12) 05/22/2024 Cervical vertebral fusion (ICD-10 - M43.22) 06/19/2024 Cervical pain (ICD-10 - M54.2) 07/17/2024 Cervical radiculopathy (ICD-10 - M54.12) Refill for controlled substance sent to supervising physician to be filled Refill of tizanidine sent to pharmacy Continue home stretching and at home exercise program as tolerated Follow-up in one month for med check, sooner if needed 07/17/2024 Cervical pain (ICD-10 - M54.2) 08/15/2024 Cervical radiculopathy (ICD-10 - M54.12) 08/15/2024 Cervical pain (ICD-10 - M54.2) Refill for controlled substance sent to supervising physician to be filled Continue home stretching and at home exercise program as tolerated Follow-up in one month for med check, sooner if needed 09/12/2024 Cervical radiculopathy (ICD-10 - M54.12) Refill for controlled substance sent to supervising physician to be filled Patient to follow-up after visit with Dr. Arana next week, told her to call clinic. Discussed f/u with Dr. Zaida Hook next med check to discuss f/u with Dr. Arana and to discuss how recover is going post-op Continue home stretching and at home exercise program as tolerated Follow-up in one month for med check, sooner if needed 10/04/2024 Cervical radiculopathy (ICD-10 - M54.12) 10/04/2024 Cervical radiculopathy (ICD-10 - M54.12) 10/09/2024 Cervical radiculopathy (ICD-10 - M54.12) 10/10/2024 Thoracic spondylosis (ICD-10 - M47.814) 10/09/2024 Cervical pain (ICD-10 - M54.2) 09/12/2024 Cervical pain (ICD-10 - M54.2) 10/04/2024 Cervical pain (ICD-10 - M54.2) 06/19/2024 Cardiac arrhythmia (ICD-10 - I49.9) 08/15/2024 Disease of spinal cord, unspecified (ICD-10 - G95.9) 07/17/2024 Myelopathy, spondylogenic, cervical (ICD-10 - M47.12) 04/24/2024 Cardiac arrhythmia (ICD-10 - I49.9) 05/22/2024 Disease of spinal cord, unspecified (ICD-10 - G95.9) 03/29/2024 Cervical myelopathy (ICD-10 - G95.9) 01/19/2024 COVID (ICD-10 - U07.1) 03/13/2024 Shortness of breath (ICD-10 - R06.02) 03/13/2024 Dizziness and giddiness (ICD-10 - R42) 04/24/2024 Hypothyroidism (ICD-10 - E03.9) 03/29/2024 Cardiac arrhythmia (ICD-10 - I49.9) 05/22/2024 S/P cervical spinal fusion (ICD-10 - Z98.1) 06/19/2024 Hypothyroidism (ICD-10 - E03.9) 07/17/2024 Disease of spinal cord, unspecified (ICD-10 - G95.9) 08/15/2024 Radiculopathy, cervical region (ICD-10 - M54.12) 09/12/2024 Cardiac arrhythmia (ICD-10 - I49.9) 10/04/2024 Cardiac arrhythmia (ICD-10 - I49.9) 10/09/2024 Cardiac arrhythmia (ICD-10 - I49.9) 10/09/2024 Hypothyroidism (ICD-10 - E03.9) ICD F32.A-Depressi on: 10/04/2024 Hypothyroidism (ICD-10 - E03.9) ICD F32.A-Depressi on: 09/12/2024 Hypothyroidism (ICD-10 - E03.9) ICD F32.A-Depressi on: 08/15/2024 Generalized osteoarthritis (ICD-10 - M15.9) 07/17/2024 Radiculopathy, cervical region (ICD-10 - M54.12) 06/19/2024 Myelopathy, spondylogenic, cervical (ICD-10 - M47.12) 05/22/2024 Generalized osteoarthritis (ICD-10 - M15.9) 03/29/2024 Status post cervical spinal fusion (ICD-10 - Z98.1) 04/24/2024 Myelopathy, spondylogenic, cervical (ICD-10 - M47.12) 03/13/2024 Cardiac arrhythmia (ICD-10 - I49.9) 03/13/2024 On terminologist drug therapy (ICD-10 - Z79.899) 04/24/2024 Screening for substance abuse (ICD-10 - Z13.89) 03/29/2024 Hypothyroidism (ICD-10 - E03.9) 06/19/2024 Disease of spinal cord, unspecified (ICD-10 - G95.9) 08/15/2024 [facility] use of drug (ICD-10 - Z79.899) 07/17/2024 Generalized osteoarthritis (ICD-10 - M15.9) 09/12/2024 Myelopathy, spondylogenic, cervical (ICD-10 - M47.12) 10/04/2024 Myelopathy, spondylogenic, cervical (ICD-10 - M47.12) 10/09/2024 Myelopathy, spondylogenic, cervical (ICD-10 - M47.12) 10/09/2024 Disease of spinal cord, unspecified (ICD-10 - G95.9) 10/04/2024 Disease of spinal cord, unspecified (ICD-10 - G95.9) 09/12/2024 Disease of spinal cord, unspecified (ICD-10 - G95.9) 07/17/2024 On terminologist drug therapy (ICD-10 - Z79.899) 06/19/2024 Radiculopathy, cervical region (ICD-10 - M54.12) 06/19/2024 Generalized osteoarthritis (ICD-10 - M15.9) 09/12/2024 Radiculopathy, cervical region (ICD-10 - M54.12) 10/04/2024 Radiculopathy, cervical region (ICD-10 - M54.12) 10/09/2024 Radiculopathy, cervical region (ICD-10 - M54.12) 09/12/2024 Generalized osteoarthritis (ICD-10 - M15.9) 10/04/2024 Generalized osteoarthritis (ICD-10 - M15.9) 06/19/2024 Status post cervical spinal fusion (ICD-10 - Z98.1) 10/09/2024 Generalized osteoarthritis (ICD-10 - M15.9) 10/04/2024 Cervical myelopathy (ICD-10 - G95.9) 10/09/2024 Lumbar radiculopathy (ICD-10 - M54.16) 10/04/2024 Cervical vertebral fusion (ICD-10 - M43.22) ICD F32.A-Depressi on: 10/09/2024 Thoracic radiculopathy (ICD-10 - M54.14) 10/09/2024 Cervical vertebral fusion (ICD-10 - M43.22) 10/09/2024 S/P lumbar fusion (ICD-10 - Z98.1) 10/09/2024 Thoracic spondylosis (ICD-10 - M47.814) 10/04/2024 Other Learning About How to Have a Healthy Back material was published 10/09/2024 Other Body Mass Index : Care Instructions material was published, Body Mass Index: Care Instructions material was published 12/13/2023 Other Body Mass Index : Care Instructions material was published, High Blood Pressure: Care Instructions material was published 01/19/2024 Other High Blood Pressure: Care Instructions material was published Patient saw her field installer and they have increased her vitamin D and vitamin C. She still complaining of a funny taste in her mouth and so has added the zinc. She had been taking 6 Aleve a day for the last several months and methadone 5 mg twice a day. I told her I prefer that she take methadone 5 mg 3 times a day and stop taking the Aleve because long-term it puts her at risk of renal insufficiency and some cardiac disease. 03/13/2024 Other Body Mass Index : Care Instructions material was published, High Blood Pressure: Care Instructions material was published 03/29/2024 Other Body Mass Index : Care Instructions material was published, High Blood Pressure: Care Instructions material was published 04/24/2024 Other High Blood Pressure: Care Instructions material was published 05/22/2024 Other Body Mass Index : Care Instructions material was published, High Blood Pressure: Care Instructions material was published 06/19/2024 Other Body Mass Index : Care Instructions material was published, High Blood Pressure: Care Instructions material was published 07/17/2024 Other High Blood Pressure: Care Instructions material was published 08/15/2024 Other High Blood Pressure: Care Instructions material was published, Body Mass Index: Care Instructions material was published 09/12/2024 Other Learning About How to Have a Healthy Back material was published, High Blood Pressure: Care Instructions material was published Plan Of Treatment Pending Test Test Name Order Date CT Cervical WO 10/04/2024 CT Lumbar WO 10/09/2024 CT Thoracic WO 10/10/2024 MR Thoracic WO 10/09/2024 EtS (Alcohol Metabolite) - Urine 025 EtS (Alcohol Metabolite) - Urine 024 QMP Plus D/L - Urine 10/04/2024 QMP Plus D/L - Urine 03/29/2024 Synthetic Stimulants 03/29/2024 Synthetic Stimulants 10/04/2024 Customer Retention Representative Benzodiazepines 10/04/2024 Customer Retention Representative Benzodiazepines 03/29/2024 Synthetic Cannabinoids 03/29/2024 Synthetic Cannabinoids 10/04/2024 Customer Retention Representative Opioids 10/04/2024 Customer Retention Representative Opioids 03/29/2024 Hallucinogens/Dissociatives 10/04/2024 Hallucinogens/Dissociatives 03/29/2024 [employer]Y [employer]S ASSEM[employer]ER Other 03/29/2024 BATTERY [employer]S ASSEM[employer]ER Other 10/04/2024 Marijuana - Urine 10/04/2024 Marijuana - Urine 03/29/2024 PainComp Medication Compliance - Urine 1 05/29/2023 PainComp Medication Compliance - Urine 0 10/04/2024 [facility] Required Information 10/04/2024 [facility] Required Information 03/29/2024 [facility] Healthcare Profile 03/29/2024 [facility] Healthcare Profile 10/04/2024 Insurance Providers Payer Name Payer Address Payer Phone Subscriber Number Group Number Insured Name Patient Relationship to Insured Coverage Start Date Coverage End Date [employer] [place] J5 [address] [address] [place] [address] [id number] Julia Barrett Self - patient is the insured 3 [facility] [address] [place] [phone] [id number] PLANF Julia Barrett Self - patient is the insured 5 Medications Administered Medication Instructions Date of Administration Dosage Notes Cerv / Thor Trans Epidural 1st Level 12/13/2023 RIGHT C4-5 TR ANS Medical (General) History Medical History History ICD Code depression anxiety hypothyroidism Surgical History Surgery Date(Month/Year) cataract surgery both eyes 11/03 extensive cervical and lumbar surgery af ter fall posterior cervical decompression- Dr. Jose red 04/2024 Hospitalization History Reason Date(Month/Year) no hospitalizations since prior visit
--- NOTE | 2024-10-18 13:27 | P.PCNPFT_ITS ---
PFT Procedure Performed PFT Procedure Performed Spirometry with Pre/Post Bronchodilator Plethysmography (Lung Vol) Diffusing Cap (DLCO) Flow Vol Loop PFT Interpretation DOS: 10/12/2024 REQUESTING: Luan Faustin APRN REASON FOR TESTING: Dyspnea PULMONARY FUNCTION TESTS Results are reliable and reproducible. Repeatability of spirometry FEV1 maneuver pre and post bronchodilator is Grade A. GLI 2012 reference equations were used. Spirometry: The pre-bronchodilator FEV1 is 1.92 L, 98%, normal. The pre- bronchodilator FVC is 2.60 L, 101%, normal. The FEV1/FVC ratio is 74%, normal. After bronchodilator, the FEV1 is 2.13 L, 108%, +11%. After bronchodilator, the FVC is 2.81 L, 110%, +8%. The FEV1/FVC ratio is 76%, normal. Lung volumes: The total lung capacity is 4.25 L, 87%, normal. FRC is 1.75 L, 62%, normal. The residual volume is 1.57 L, 69%, normal. The RV/TLC is 37%, normal. Airway resistance is increased. Diffusion: DLCO is 15.6, 80%, normal. The DLCO/VA is 3.56, 84%, normal. Flow volume loop: The flow volume loop is unremarkable. IMPRESSION: Normal spirometry with a statistically significant response to bronchodilator, normal lung volumes and normal diffusion. No prior studies to compare. Alena Barnard MD
== END 2024-10-12 08:13 | disposition home or self-care (01) ==
LOC: ANHPFT 08:13
PROVIDERS: PCP Nurse Practitioner Family; Visit Provider Nurse Practitioner Family
DX: R06.09 Other forms of dyspnea (principal)
CPT/HCPCS: 94060; 94726; 94729